=== PATIENT | male | born 1940 | race Caucasian/White ===

== ENCOUNTER → 2016-07-16 | Outpatient (CLI) | payer MEDICARE, OTHER ==
[~2016-07-16] VITALS: Ht 177.8 cm; Wt 70.4 kg
[~2016-07-16] MED LIST: ALPR0.5T8 PO; ASPI-611 PO; CYAN10009 PO; DULO30CA2 PO; FOLI1TAB15 PO; FURO40TA5 PO; METO-275 PO; MINO100C2 PO; OXYC20TA76 PO; PRAV20TA4 PO; PREG200C PO; ROPI1TAB12 PO; TAMS0.4C47 PO
--- NOTE | 2016-07-16 15:00 | DI ---
INDICATION: ITS.REASON: R06.02 SOB PROCEDURE: CHEST 2-VIEWS UPRIGHT (PA \T\ LAT) Encounter: Initial COMPARISON: Chest x-ray dated May 09, 2016 FINDINGS: Increasing opacity in the area of known left upper lobe lung nodule which appears larger than the prior study. Increased interstitial markings are noted bilaterally, similar to the prior study. No lobar consolidative pneumonia, gross pleural effusion or pneumothorax. Cardiac silhouette is moderately enlarged, worsened from the prior study. Mediastinal contours are grossly normal. Pulmonary vascularity is similar to the prior exam. Impression: 1. Increasing size of the left upper lobe pulmonary nodule. 2. Increased interstitial markings bilaterally could be due to atypical/viral pneumonia, mild pulmonary edema or hypersensitivity pneumonitis/drug reaction. .
== END ==
LOC: RC 12:37
PROVIDERS: ATTEND Internal Medicine Cardiovascular Disease
DX: J98.8 Other specified respiratory disorders (principal); R91.1 Solitary pulmonary nodule; R94.2 Abnormal results of pulmonary function studies; R91.8 Other nonspecific abnormal finding of lung field
CPT/HCPCS: 94060; 94726

== ENCOUNTER → 2016-08-07 | Outpatient (CLI) | payer MEDICARE, OTHER | LOC: NWCC 10:44 | PROVIDERS: ATTEND Internal Medicine | DX: S91.101A Unspecified open wound of right great toe without damage to nail, initial encounter (principal); W22.8XXS Striking against or struck by other objects, sequela ==

== ENCOUNTER → 2016-08-19 | Outpatient (CLI) | payer MEDICARE, OTHER ==
--- NOTE | 2016-08-19 12:51 | DI ---
Indication: ITS.REASON: SPONDYLOLISTHESIS POF LUMBAR SPINE PROCEDURE: LUMBAR SPINE W/ BENDING VIEWS: Encounter: Initial Comparison: CT lumbar spine dated December 14, 2015 Findings: Alignment lumbar spine is stable with scoliosis. There is abnormal kyphosis centered at the L2 level. Prior vertebroplasty procedures noted at L2 and L3 along with posterior decompression extending from L2 through L4. There is limited range of motion with very minimal extension and decreased flexion. Severe degenerative facet disease from L3 through S1. Moderate degenerative disk disease at L2-L3. Moderate to severe degenerative disk disease at L3-S1. Impression: No definite acute fracture. Scoliosis with degenerative disk and facet changes as above. .
== END ==
LOC: IMA 10:38
PROVIDERS: ATTEND Physician Assistant
DX: M43.16 Spondylolisthesis, lumbar region (principal); M41.9 Scoliosis, unspecified; M47.896 Other spondylosis, lumbar region; M47.897 Other spondylosis, lumbosacral region; M51.36 Other intervertebral disc degeneration, lumbar region; M51.37 Other intervertebral disc degeneration, lumbosacral region

== ENCOUNTER 2016-09-18 11:02 | Inpatient (IN) | payer MEDICARE, OTHER ==
[~2016-09-18] VITALS: Ht 177.8 cm; Wt 63.0 kg
--- OUTSIDE RECORDS SUMMARY | 2016-09-18 11:07 | XMS REPORT | Continuity of Care Document ---
Author Author [facility] Organization [facility] Address Unknown Phone Unavailable Support Name Relationship Address Phone RALPH LEAL II, MD Caregiver [address] [place] [phone] ISAAC MELTON MD Caregiver [address] [place] [phone] ARLINE MARCANO MD Caregiver [address] [place] [phone] DONYA LÓPEZ Next Of Kin [address] [facility] [place], [place] [id number] Insurance Providers Payer Name Policy Number Subscriber Name Relationship Medicare [id number] Chucho López 18 Self Medicare Supp Wps [id number] Chucho López 18 Self Problems Medical Problems Problem Onset Date Status Anemia Unknown Active Nausea Unknown Active Hypovolemia Unknown Active Chronic anemia Unknown Active Exacerbation of chronic back pain Unknown Active Hip pain Unknown Active Medications Medication Dose Route Sig Days/Qty Instructions Order Date Discontinued Date Status Pregabalin 50 Mg PO DAILY 09/11/10 07/13/13 Discontinued Folic Acid 1 Mg PO DAILY 09/11/10 Active Duloxetine Hcl 30 Mg PO DAILY 09/11/10 Active Aspirin 81 Mg PO DAILY 09/11/10 Active Zolpidem Tartrate 10 Mg PO BEDTIME 09/11/10 Active Alprazolam 0.5 Mg PO DAILY 09/11/10 Active Ibuprofen 200 Mg PO NEEDED 03/11/13 07/13/13 Discontinued Tamsulosin Hcl 0.4 Mg PO BEDTIME 03/11/13 09/13/14 Discontinued Pravastatin Sodium 20 Mg PO BEDTIME 03/11/13 Active Metoprolol Tartrate 12 Mg PO DAILY 03/11/13 Active Folic Acid 1 Mg PO DAILY 03/11/13 09/13/14 Discontinued Glucosam Hcl/Chondro Wild A/C/Mn 1 Cap PO DAILY 03/11/13 07/13/13 Discontinued [Vitamin B-12] DAILY 03/11/13 Active Multivitamins 1 Tab PO DAILY 03/11/13 09/13/14 Discontinued Hydrochlorothiazide 25 Mg PO DAILY 03/11/13 07/13/13 Discontinued [Percocet] NEEDED 03/11/13 07/13/13 Discontinued Oxycodone Hcl 15 Mg PO PRN QID 07/13/13 09/13/14 Discontinued Ropinirole Hcl 0.5 Mg PO TWICE A DAY 07/13/13 Active Methocarbamol 750 Mg PO THREE TIMES A DAY 07/13/13 Active Magnesium Oxide 400 Mg PO DAILY 07/13/13 09/13/14 Discontinued Furosemide 40 Mg PO DAILY 07/13/13 Active Bisacodyl 5 Mg PO BEDTIME 07/13/13 Active Albuterol Sulfate 8.5 Gm IH NEEDED 07/13/13 Active Oxycodone HCl/Acetaminophen 1 Tab PO q4-6 h PRN PAIN 20 Qty Take 1 tablet , by mouth, every 4-6 hours as needed for pain. 09/13/14 Active Social History Social History Problem Response Recorded Date/Time Chewing Tobacco Status No 07/20/2013 12:28pm Hx Substance Use No 09/13/2014 9:17pm Hx Alcohol Use No 09/13/2014 9:17pm Has the pt used tobacco in the last 12 months Yes 03/11/2013 10:55am Query Response Start Date Stop Date Smoking Status Current every day smoker Hospital Discharge Instructions No hospital discharge instructions. Plan of Care No plan of care. Functional Status Query Response Date Recorded Physical Hygiene Self September 13, 2014 9:17pm Disabilities Hearing Visual September 13, 2014 9:17pm Devices Used Dentures September 13, 2014 9:17pm Dressing Self September 13, 2014 9:17pm Ambulation Self September 13, 2014 9:17pm Diet Self September 13, 2014 9:17pm Mental Status Alert Oriented September 13, 2014 9:17pm Disabilities Hearing Visual September 13, 2014 9:17pm Devices Used Dentures September 13, 2014 9:17pm Physical Hygiene Self September 13, 2014 9:17pm Dressing Self September 13, 2014 9:17pm Ambulation Self September 13, 2014 9:17pm Diet Self September 13, 2014 9:17pm Allergies, Adverse Reactions, Alerts Allergen Type Severity Reaction Status Last Updated neomycin sulfate Allergy Unknown Active 09/13/14 Bacitracin Zinc Allergy Unknown Active 09/13/14 Codeine Allergy Unknown Active 09/11/10 Bacitracin Allergy Unknown Active 09/13/14 Scopolamine Allergy Severe HALLUCINATIONS Active 09/13/14 Simvastatin Allergy Unknown Active 09/13/14 Polymyxin b Allergy Unknown Active 09/13/14 Immunizations Name Given Type Hx Influenza Vaccination Y 03/2013 Historical Hx Pneumococcal Vaccination Y WITHIN THE PAST 5 YEAR Historical Hx Influenza Vaccination Y 03/2013 Historical Vital Signs Acute Vital Signs Vital Response Date/Time Temperature (Fahrenheit) 98.0 deg F (96.8 - 99.1) Temperature (Calculated Celsius) 36.62108 degrees C (36.0 - 37.3) Pulse Rate (adult) 92 bpm (60 - 100) Respiratory Rate 20 breaths/min (10 - 20) O2 Sat by Pulse Oximetry 96 % (90 - 100) Blood Pressure 165/78 mm Hg Height 5 ft 10 in Weight 191 lb Body Mass Index 27.0 kg/m^2 Results Test Source Date Result Interp. Ref. Range Comments Alanine Aminotransferase (ALT/SGPT) May 02, 2014 8:48am 27 U/L N 21 -72 Albumin May 02, 2014 8:48am 3.8 G/DL N 3.5-5.0 Albumin/Globulin Ratio May 02, 2014 8:48am 1.1 RATIO N 1.1-2.2 Alkaline Phosphatase May 02, 2014 8:48am 73 U/L N 38-126 Anion Gap May 02, 2014 8:48am 7 MEQ/L N 5-15 Aspartate Amino Transf (AST/SGOT) May 02, 2014 8:48am 24 U/L N 17- 59 BUN/Creatinine Ratio May 02, 2014 8:48am 20 RATIO N 6-26 Band Neutrophils # July 20, 2013 11:10am 0.2 T/MM3 - Band Neutrophils % July 20, 2013 11:10am 2.0 % N 0-6 Basophils # (Auto) August 05, 2013 11:05am 0.0 T/MM3 N 0-0.2 Basophils # (Manual) August 16, 2012 10:15am 0.1 T/MM3 N 0-0.2 Basophils % (Manual) August 16, 2012 10:15am 1.0 % N 0-2 Basophils (%) (Auto) August 05, 2013 11:05am 0.9 % N 0-2 Blood Urea Nitrogen May 02, 2014 8:48am 20.0 MG/DL N 9-20 Calcium Level May 02, 2014 8:48am 9.0 MG/DL N 8.4-10.2 Calculated Osmolality May 02, 2014 8:48am 279 MOSM/KG N 261-280 Carbon Dioxide Level May 02, 2014 8:48am 28 MEQ/L N 22-30 Chloride Level May 02, 2014 8:48am 109 MEQ/L H 98-107 Cholesterol Level May 02, 2014 8:48am 141 MG/DL N 132-199 Cholesterol/HDL Ratio May 02, 2014 8:48am 4.7 RATIO N 0-5.0 Creatinine May 02, 2014 8:48am 1.0 MG/DL N 0.8-1.5 D-Dimer July 20, 2013 11:10am 2410 NG/ML H 0-400 <400 NG/ML= PRESUMPTIVE NEGATIVE FOR PE OR DVT>400 NG/ML=ADDITIONAL EVALUATION FOR PE OR DVT RECOMMENDED Eosinophils # (Auto) August 05, 2013 11:05am 0.1 T/MM3 N 0-0.5 Eosinophils # (Manual) July 20, 2013 11:10am 0.2 T/MM3 N 0-0.5 Eosinophils % (Manual) July 20, 2013 11:10am 2.0 % N 0-4 Eosinophils (%) (Auto) August 05, 2013 11:05am 2.8 % N 0-4 Globulin May 02, 2014 8:48am 3.4 G/DL N 2.4-3.6 Glucose Level May 02, 2014 8:48am 85 MG/DL N 75-110 Hematocrit August 05, 2013 11:05am 26.3 % L 41-53 Hemoglobin August 05, 2013 11:05am 8.2 GM/DL L 13.5-17.5 Iron Level March 14, 2013 6:21am 71 UG/DL N 49-181 COMMENT SerumIronStudies LDL Cholesterol, Calculated May 02, 2014 8:48am 82.8 N 66-159 Lipase July 13, 2013 7:25pm 45 U/L N 23-300 Lymphocytes # (Auto) August 05, 2013 11:05am 1.7 T/MM3 N 1-4.8 Lymphocytes # (Manual) July 20, 2013 11:10am 2.0 T/MM3 N 1-4.8 Lymphocytes % (Manual) July 20, 2013 11:10am 27.0 % N 23-45 Lymphocytes (%) (Auto) August 05, 2013 11:05am 39.2 % N 23-45 Mean Corpuscular Hemoglobin August 05, 2013 11:05am 31.7 UUG N 26-34 Mean Corpuscular Hemoglobin Concent August 05, 2013 11:05am 31.2 GM/DL N 31-37 Mean Corpuscular Volume August 05, 2013 11:05am 101.5 UM3 H 80-100 Mean Platelet Volume August 05, 2013 11:05am 12.5 UM3 H 9.4-12.4 Metamyelocytes # August 16, 2012 10:15am 0.1 T/MM3 - Metamyelocytes % August 16, 2012 10:15am 1.0 % H 0-0 Monocytes # (Auto) August 05, 2013 11:05am 1.3 T/MM3 H 0-0.8 Monocytes # (Manual) July 20, 2013 11:10am 2.4 T/MM3 H 0-0.8 Monocytes % (Manual) July 20, 2013 11:10am 32.0 % H 0-9.0 Monocytes (%) (Auto) August 05, 2013 11:05am 30.0 % H 0-9.0 Neutrophils # (Auto) August 05, 2013 11:05am 1.1 T/MM3 L 1.8-7.7 Neutrophils # (Manual) July 20, 2013 11:10am 2.8 T/MM3 N 1.8-7.7 Neutrophils % (Manual) July 20, 2013 11:10am 37.0 % N 33-66 Neutrophils (%) (Auto) August 05, 2013 11:05am 26.4 % L 33-66 Percent Iron Saturation March 14, 2013 6:21am 24 % N 13-59 COMMENT SerumIronStudies Platelet Count August 05, 2013 11:05am 135 T/MM3 N 130-400 Potassium Level May 02, 2014 8:48am 4.4 MEQ/L N 3.6-5 RDW Standard Deviation August 05, 2013 11:05am 54.1 FL H 36.9-50.2 Red Blood Count August 05, 2013 11:05am 2.59 M/MM3 L 4.50-5.90 Sodium Level May 02, 2014 8:48am 144 MEQ/L N 134-144 Total Bilirubin May 02, 2014 8:48am 0.70 MG/DL N 0.20-1.30 Total Iron Binding Capacity March 14, 2013 6:21am 295 UG/DL N 261-497 COMMENT SerumIronStudies Total Protein May 02, 2014 8:48am 7.2 G/DL N 6.3-8.2 Triglycerides Level May 02, 2014 8:48am 141 MG/DL N 40-160 Troponin I July 20, 2013 11:10am < 0.012 ng/ml 0-0.12 Urine Bilirubin July 20, 2013 1:45pm Negative - Has specimen been collected/obtained? Y Urine Blood July 20, 2013 1:45pm Negative - Has specimen been collected/obtained? Y Urine Collection Type July 20, 2013 1:45pm Cleancatch-midstream - Has specimen been collected/obtained? Y Urine Color July 20, 2013 1:45pm Yellow - Has specimen been collected/obtained? Y Urine Glucose (UA) July 20, 2013 1:45pm Negative - Has specimen been collected/obtained? Y Urine Ketones July 20, 2013 1:45pm Negative - Has specimen been collected/obtained? Y Urine Leukocyte Esterase July 20, 2013 1:45pm Negative - Has specimen been collected/obtained? Y Urine Nitrite July 20, 2013 1:45pm Negative - Has specimen been collected/obtained? Y Urine Protein July 20, 2013 1:45pm Negative - Has specimen been collected/obtained? Y Urine Specific [place] July 20, 2013 1:45pm 1.010 L - Has specimen been collected/obtained? Y Urine Turbidity July 20, 2013 1:45pm Clear - Has specimen been collected/obtained? Y Urine Urobilinogen July 20, 2013 1:45pm 0.2 EU/DL - Has specimen been collected/obtained? Y Urine pH July 20, 2013 1:45pm 7.0 - Has specimen been collected/ obtained? Y VLDL Cholesterol May 02, 2014 8:48am 28.2 MG/DL H 0-28 White Blood Count August 05, 2013 11:05am 4.2 T/MM3 L 4.5-11.0 Chemistry Specimen Hemolysis May 02, 2014 8:48am < 15 0-25 0-25 : No Hemolysis.26-70: Slight Hemolysis - can falsely elevate K and Urine Protein. 71-285: Moderate Hemolysis - can falsely elevate K, Troponin I, CA 19-9, PTH, CSF GLucose, and Urine Protein, and can falsely decrease Phenytoin. 286-999: Gross Hemolysis - can falsely elevate K, Troponin I, CA 19-9, PTH, CSF Glucose, and Urine Protine, and can falsely decrease Phenytoin. Recommend specimen recollection. Urinalysis Comment July 20, 2013 1:45pm Microscopic not ind. - Has specimen been collected/obtained? Y Lab Scanned Report May 02, 2014 9:03am LAB TEST FORM REQUEST [id number] - HDL Cholesterol Direct May 02, 2014 8:48am 30 MG/DL L 40-60 Turbidity May 02, 2014 8:48am < 20 0-20 Reactive Lymphocytes % August 16, 2012 10:15am 9.0 % H 0-0 Glomerular Filtration Rate Calc May 02, 2014 8:48am 73 - Reactive Lymphocytes # August 16, 2012 10:15am 0.8 T/MM3 H 0-0 Immature Granulocyte # (Auto) August 05, 2013 11:05am 0.03 T/MM3 N 0.00- 0.03 Immature Granulocyte % (Auto) August 05, 2013 11:05am 0.7 % H 0.0-0.5 Icterus Index May 02, 2014 8:48am < 2 0-7 Name: CUHCHO LÓPEZ Unit #: [id number] : 1940 Sex: M Loc / Svc: [facility] DOS: 08/28/14 Signed Report #: [id number] DIAGNOSTIC IMAGING REPORT TYPE OF EXAM: PELVIS AP (1 or 2 view) Dictated By: COURT SALCIDO MD Indication: ITS.REASON: PAIN IN JOINT, HIP, PELVIS AND THIGH PELVIS AP (1 or 2 view) Comparison: None Findings: There is no acute fracture, dislocation or malalignment identified. Degenerative changes in the lower lumbar spine, detailed on the lumbar spine report. No significant hip joint space narrowing. Small osteophytes at the lateral aspect of the left acetabulum. Pubic symphysis appears intact. Impression: No acute osseous abnormality. . Procedures Procedure Status Date Provider(s) X-RAY EXAM L-S SPINE BENDING completed 08/28/14 X-RAY EXAM OF PELVIS completed 08/28/14 X-RAY EXAM OF HIP completed 08/28/14 Encounters Encounter Location Date/Time Departed Emergency Room [facility] 09/13/14 7:57pm Registered Clinic [facility] 08/28/14 10:21am Recent Diagnosis
--- OUTSIDE RECORDS SUMMARY | 2016-09-18 11:09 | XMS REPORT | Continuity of Care Document ---
Author Author [facility] Organization [facility] Address Unknown Phone Unavailable Allergies Active Description Code Type Severity Reaction Onset Reported/Identified Relationship to Patient Clinical Status Yes No Known Food Allergies Food Allergy 08/24/2012 Yes Codeine Drug Allergy Nausea/Vomiting 08/27/2012 Yes CODEINE 63438 1 Nausea 06/03/2013 Yes codeine NKMA N/A Nausea/Vomiting 09/30/2013 Yes codeine NKMA N/A Nausea/Vomiting 09/30/2013 Yes codeine codeine Drug Allergy Unknown U 12/26/2013 Yes codeine codeine Drug Allergy Unknown U 12/26/2013 Yes NEOSPORIN 66110 1 SKIN IRRITATION 01/24/2014 Yes ZOCOR 56349 2 HEADACHE AND NAUSEA 01/24/2014 Yes scopolamine scopolamine Drug Allergy Severe UNKNOWN 05/26/2016 Yes bacitracin bacitracin Drug Allergy Unknown RASH 05/26/2016 Yes BACITRACIN ZINC BACITRACIN ZINC Drug Allergy Unknown RASH 05/26/2016 Yes codeine codeine Drug Allergy Unknown UNKNOWN 05/26/2016 Yes neomycin neomycin Drug Allergy Unknown RASH 05/26/2016 Yes NEOMYCIN SULFATE NEOMYCIN SULFATE Drug Allergy Unknown RASH 05/26/2016 Yes polymyxin B polymyxin B Drug Allergy Unknown UNKNOWN 05/26/2016 Yes simvastatin simvastatin Drug Allergy Unknown UNKNOWN 05/26/2016 Yes scopolamine scopolamine Drug Allergy Severe UNKNOWN 05/26/2016 Yes bacitracin bacitracin Drug Allergy Unknown RASH 05/26/2016 Yes BACITRACIN ZINC BACITRACIN ZINC Drug Allergy Unknown RASH 05/26/2016 Yes codeine codeine Drug Allergy Unknown UNKNOWN 05/26/2016 Yes neomycin neomycin Drug Allergy Unknown RASH 05/26/2016 Yes NEOMYCIN SULFATE NEOMYCIN SULFATE Drug Allergy Unknown RASH 05/26/2016 Yes polymyxin B polymyxin B Drug Allergy Unknown UNKNOWN 05/26/2016 Yes simvastatin simvastatin Drug Allergy Unknown UNKNOWN 05/26/2016 Medications Medication Packaging Start Date Stop Date Route Dosage Sig DULoxetine(Cymbalta 20 mg oral delayed release capsule) 1 caps 02/15/2014 Oral 20 mg 20 mg=1 caps, Oral, Daily, 0 Refill(s) furosemide(Lasix 40 mg oral tablet) tabs 02/15/2014 Oral mg tabs, Oral, Daily rOPINIRole(Requip 0.25 mg oral tablet) 1 tabs 02/15/2014 Oral 0.25 mg 0.25 mg=1 tabs, Oral, BID, 0 Refill(s) pravastatin(pravastatin 10 mg oral tablet) 1 tabs 02/15/2014 Oral 10 mg 10 mg=1 tabs, Oral, Bedtime (once a day), 0 Refill(s) zolpidem(Ambien 5 mg oral tablet) 1 tabs 02/15/2014 Oral 5 mg 5 mg=1 tabs, Oral, Bedtime (once a day), 0 Refill(s) aspirin(aspirin 650 mg oral tablet) 1 tabs 02/15/20142014 Oral 650 mg 1 tabs, Oral, q4hr, 60 tabs, PRN: as needed for pain silodosin(Rapaflo 4 mg oral capsule) caps 02/15/20142014 Oral mg caps, Oral, Daily pregabalin(Lyrica 25 mg oral capsule) caps 02/15/2014 Oral mg caps, Oral, Daily folic acid(folic acid) 02/15/2014 Daily gabapentin(gabapentin 100 mg oral capsule) caps 02/15/2014 Oral mg caps, Oral, QID ALPRAZolam(ALPRAZolam 1 mg/mL oral concentrate) 1 mL 02/15/2014 11/05/2015 Oral 1 mg 1 mL, Oral, TID, PRN: as needed for anxiety cyclobenzaprine(cyclobenzaprine 10 mg oral tablet) 1 tabs 02/15/2014 Oral 10 mg 1 tabs, Oral, TID, 30 tabs, PRN: as needed for spasm ondansetron(Zofran) 09/25/2014 07/18/2015 See Instructions , Pt unsure of strength, PRN: as needed for nausea/vomiting oxyCODONE-acetaminophen(Percocet 7.5/325 oral tablet) 1 tabs 09/29/2014 11/05/2015 Oral 1 tabs, Oral, q6hr, 60 tabs, PRN: as needed for pain oxyCODONE(OxyCONTIN 20 mg oral tablet, extended release) 1 tabs 05/18/2015 06/19/2015 Oral 20 mg 20 mg=1 tabs, Oral, q12hr, 60 tabs, 0 Refill(s ) HYDROcodone-acetaminophen(Adrian 10 mg-325 mg oral tablet) 1 tabs 05/18/2015 06/19/2015 Oral 1 tabs, Oral, TID, PRN: Pain - Breakthrough, 80 tabs, 0 Refill(s) HYDROcodone-acetaminophen(Adrian 10 mg-325 mg oral tablet) 1 tabs 06/19/2015 07/18/2015 Oral 1 tabs, Oral, TID, PRN: Pain - Breakthrough, 80 tabs, 0 Refill(s) oxyCODONE(OxyCONTIN 20 mg oral tablet, extended release) 1 tabs 06/19/2015 Oral 20 mg 20 mg=1 tabs, Oral, q12hr, 60 tabs, 0 Refill(s) promethazine(Phenergan) 07/18/2015 11/05/2015 0 Refill(s) ceFAZolin(ceFAZolin) 10 mL 07/24/2015 07/24/2015 IV Push 1 g 1 g= 10 mL, IV Push, PREOP Lactated Ringers Injection(Lactated Ringers Injection 1, 000 mL) 1,000 mL 201507/24/2015 IV 10 mL/hr, IV fentaNYL(Sublimaze) 1 mL 07/24/2015 07/27/2015 IV Push 50 mcg 50 mcg=1 mL, IV Push, Once dexamethasone(dexamethasone) 1 mL 07/24/2015 07/24/2015 IV Push 10 mg 10 mg=1 mL, IV Push, Once famotidine(Pepcid) 2 mL 07/24/2015 07/24/2015 IV Push 20 mg 20 mg =2 mL, IV Push, Once ondansetron(Zofran) 2 mL 07/24/2015 07/24/2015 IV Push 4 mg 4 mg= 2 mL, IV Push, Once, PRN: Nausea or Vomiting HYDROmorphone(Dilaudid) 0.5 mL 07/24/2015 07/24/2015 IV Push 0.5 mg 0.5 mg=0.5 mL, IV Push, q5min, PRN: Pain * DONT RECONCILE--CHANGE PENDING EA 10/26/2015 10/30/2015 PO PRN LACTATED RINGERS 1000 ML IV SOLN BAG 10/30/2015 10/30/2015 IV PRE-OP ceFAZolin 1GM VIAL VL 10/30/2015 10/30/2015 IV PRE-OP MIDAZOLAM 2MG/2ML INJ VL 10/30/2015 10/30/2015 IV PRE-OP fentaNYL 100 MCG/2ML INJ AMP 10/30/2015 10/30/2015 IV PRE-OP SODIUM CHLORIDE PF 0.9% 10ML INJ VL 10/30/2015 10/30/2015 IVP ONCE BUPIVACAINE W/ EPI 0.25% INJ [10 ML] VL 10/30/2015 10/30/2015 ID ONCE BACITRACIN 500 UNIT/GM OINT [0.9GM U.D.] PKT 10/30/20152015 TOP ONCE SODIUM CHLORIDE PF 0.9% 10ML INJ VL 10/30/2015 10/30/2015 IVP ONCE SODIUM CHLORIDE 0.9% 1000ML IRRIG SOLN EA 10/30/20152015 IRR ONCE ceFAZolin 1GM VIAL VL 10/30/2015 10/30/2015 IVP ONCE SODIUM CHLORIDE 0.9% 10ML FLUSH SYRINGE SYR 10/30/20152016 IVP BID&0900,2100 POLYETHYLENE GLYCOL 17GM PKT PKT 10/30/2015 10/29/2016 PO QD& 0900 METHOCARBAMOL 750MG TABLET TAB 10/30/2015 10/29/2016 PO TID& 0900,1500,2200 DOCUSATE SODIUM 100MG CAPSULE CAP 10/30/2015 10/29/2016 PO BID& 0900,2100 fentaNYL 250 MCG/5ML INJ AMP 10/30/2015 10/30/2015 IV ONCE LIDOCAINE 2% SYRINGE [100MG/5ML] SYR 10/30/2015 10/30/2015 IVP ONCE DEXAMETHASONE 10MG/1ML VIAL VL 10/30/2015 10/30/2015 IVP ONCE PROPOFOL 200MG/20ML INJ VL 10/30/2015 10/30/2015 IVP ONCE ONDANSETRON 4MG/2ML INJ VL 10/30/2015 10/30/2015 IVP ONCE ROCURONIUM 50MG/5ML INJ VL 10/30/2015 10/30/2015 IVP ONCE FAMOTIDINE 20MG/2ML INJ VL 10/30/2015 10/30/2015 IV PRE-OP PHENYLEPHRINE 1MG/10ML SYRINGE [COMPOUND] DOS 10/30/201510/29 IVP ONCE EPHEDRINE 20MG/2ML SYRINGE [COMPOUND] DOS 10/30/20152015 IVP ONCE VANCOMYCIN 1GM INJ VL 10/30/2015 10/30/2015 PB ONCE DEXAMETHASONE 10MG/1ML VIAL VL 10/30/2015 10/30/2015 IVP ONCE * Ready to Reconcile EA 10/30/2015 10/30/2015 PO ASDIR EPHEDRINE 20MG/2ML SYRINGE [COMPOUND] DOS 10/30/20152015 IVP ONCE GLYCOPYRROLATE 0.2 MG/1ML INJ VL 10/30/2015 10/30/2015 IVP ONCE NEOSTIGMINE 3MG/3ML SYRINGE [COMPOUND] DOS 10/30/20152015 IVP ONCE MORPHINE 2 MG/1ML SYRINGE ML 10/30/2015 10/29/2016 IVP [id number] MORPHINE 4MG/1ML SYRINGE ML 10/30/2015 10/29/2016 IVP [id number] BISACODYL 10MG SUPPOS. SUP 10/30/2015 10/29/2016 HI* PRN LORazepam 0.5MG TABLET TAB 10/30/2015 10/29/2016 PO Q4HPRN BISACODYL 5MG TABLET TAB 10/30/2015 10/29/2016 PO PRN PHENOL 1.4% THROAT SPRAY [118ML] EA 10/30/2015 10/29/2016 PO PRN KETOROLAC 30 MG/1ML INJ DOS 10/30/2015 10/29/2016 IVP [id number] SODIUM CHLORIDE 0.9% 10ML FLUSH SYRINGE SYR 10/30/20152016 IVP PRN SODIUM CHLORIDE 0.9% 5ML FLUSH SYRINGE SYR 10/30/20152016 IVP PRN MAGNESIUM HYDROXIDE 2400MG/30ML SUSP EA 10/30/2015 10/29/2016 PO PRN SODIUM CHLORIDE 0.9% W/ KCL 20MEQ 1000ML IV SOLN BAG 10/30/2015 10/29/2016 IV 100ML/HR diphenhydrAMINE 50MG/1ML INJ VL 10/30/2015 10/29/2016 IVP Q6HPRN ACETAMINOPHEN 325MG TABLET TAB 10/30/2015 10/29/2016 PO Q4HPRN CEPACOL (BENZOCAINE/MENTHOL) LOZENGE JOANIE 10/30/2015 10/29/2016 BC Q4HPRN TEMAZEPAM 15MG CAPSULE CAP 10/30/2015 10/29/2016 PO HSPRNI& 2200 METOCLOPRAMIDE 10MG/2ML INJ VL 10/30/2015 10/29/2016 IVP [id number] FAMOTIDINE 20 MG TABLET TAB 10/30/2015 10/29/2016 PO BIDPRNN hydroMORPHONE 2MG/1ML INJ ML 10/30/2015 10/30/2015 IV POST-OP *OFLOXACIN 0.3% OPHTHALMIC SOLUITON 10/30/2015 10/29/2016 BID&0900,2100 *PREGABALIN 100 MG CAPSULE CAP 10/30/2015 10/29/2016 PO TID& 0900,1500,2200 *rOPINIRole 1 MG TABLET TAB 10/30/2015 10/29/2016 PO HSPRN& 2200 *METOPROLOL TARTRATE 25MG TABLET TAB 10/30/2015 10/29/2016 PO QD&0900 *OXYcodone CR 20MG TABLET TAB 10/30/2015 10/29/2016 PO TIDPRN *DULoxetine 30MG CAPSULE CAP 10/30/2015 10/29/2016 PO BID&0900, 2100 *TAMSULOSIN 0.4MG CAPSULE CAP 10/30/2015 10/29/2016 PO HS&2200 *PRAVASTATIN 20MG TABLET TAB 10/30/2015 10/29/2016 PO HS&2200 *CEPHALEXIN 500MG CAPSULE CAP 10/30/2015 10/29/2016 PO TID& 0900,1500,2200 *ALPRAZolam 0.5MG TABLET TAB 10/30/2015 10/29/2016 PO TID&0900, 1500,2200 METOCLOPRAMIDE 10MG TABLET TAB 10/30/2015 10/31/2015 PO Q6H& 0000,0600,1200,1800 ceFAZolin 1GM VIAL VL 10/30/2015 10/31/2015 IVP Q8H&0000,0800, 1600 MAGNESIUM SULFATE 2GM/50ML IV SOLN BAG 10/31/2015 10/31/2015 PB ONCE METOCLOPRAMIDE 10MG TABLET TAB 10/31/2015 10/30/2016 PO [id number] magnesium citrate(magnesium citrate) 11/05/2015 Oral Oral, 0 Refill(s) ibuprofen(ibuprofen 200 mg oral tablet) 1 tabs 11/05/2015 Oral 200 mg 200 mg=1 tabs, Oral, TID, 0 Refill(s) *PREGABALIN 100 MG CAPSULE CAP 11/26/2015 10/30/2015 PO TID& 0900,1500,2200 *IBUPROFEN 800MG TABLET TAB 11/26/2015 11/25/2016 PO TID&0900, 1500,2200 *rOPINIRole 1 MG TABLET TAB 11/26/2015 10/30/2015 PO HSPRN& 2200 *DULoxetine 30MG CAPSULE CAP 11/26/2015 10/30/2015 PO BID&0900, 2100 *ZOLPIDEM 5MG TABLET TAB 11/26/2015 11/25/2016 PO HSPRN&2200 *FUROSEMIDE 40MG TABLET TAB 11/26/2015 11/25/2016 PO QD&0900 *FOLIC ACID 1MG TABLET TAB 11/26/2015 11/25/2016 PO QD&0900 *ASPIRIN EC 81MG TABLET TAB 11/26/2015 11/25/2016 PO QD&0900 *ALPRAZolam 0.5MG TABLET TAB 11/26/2015 10/30/2015 PO TID&0900, 1500,2200 *OTC/HERBAL SUPPLEMENTS EA 11/26/2015 11/25/2016 PO ASDIR *OXYcodone CR 20MG TABLET TAB 11/26/2015 10/30/2015 PO TIDPRN *OXYcodone/ACETAMINOPHEN 10-325 MG TABLET TAB 11/26/20152015 PO Q6HPRN *TAMSULOSIN 0.4MG CAPSULE CAP 11/26/2015 10/30/2015 PO HS&2200 *PRAVASTATIN 20MG TABLET TAB 11/26/2015 10/30/2015 PO HS&2200 *OFLOXACIN 0.3% OPHTHALMIC SOLUITON 11/30/2015 10/30/2015 BID&0900,2100 *METOPROLOL TARTRATE 25MG TABLET TAB 11/30/2015 10/30/2015 PO QD&0900 *CEPHALEXIN 500MG CAPSULE CAP 11/30/2015 10/30/2015 PO TID& 0900,1500,2200 *OFLOXACIN 0.3% OPHTHALMIC SOLUITON 01/04/2016 01/03/2017 BID&0900,2100 *OTC/HERBAL SUPPLEMENTS EA 01/04/2016 01/03/2017 PO ASDIR *PREGABALIN 100 MG CAPSULE CAP 01/04/2016 01/03/2017 PO TID& 0900,1500,2200 *rOPINIRole 1 MG TABLET TAB 01/04/2016 01/03/2017 PO HSPRN& 2200 *METOPROLOL TARTRATE 25MG TABLET TAB 01/04/2016 01/03/2017 PO QD&0900 *OXYcodone CR 20MG TABLET TAB 01/04/2016 01/03/2017 PO TIDPRN *DULoxetine 30MG CAPSULE CAP 01/04/2016 01/03/2017 PO BID&0900, 2100 *TAMSULOSIN 0.4MG CAPSULE CAP 01/04/2016 01/03/2017 PO HS&2200 *PRAVASTATIN 20MG TABLET TAB 01/04/2016 01/03/2017 PO HS&2200 *IBUPROFEN 800MG TABLET TAB 01/04/2016 01/03/2017 PO TID&0900, 1500,2200 *FUROSEMIDE 40MG TABLET TAB 01/04/2016 01/03/2017 PO QD&0900 *FOLIC ACID 1MG TABLET TAB 01/04/2016 01/03/2017 PO QD&0900 *ASPIRIN EC 81MG TABLET TAB 01/04/2016 01/03/2017 PO QD&0900 * DONT RECONCILE--CHANGE PENDING EA 01/04/2016 01/10/2016 PO PRN LACTATED RINGERS 1000 ML IV SOLN BAG 01/10/2016 01/10/2016 IV PRE-OP VANCOMYCIN 1GM INJ VL 01/10/2016 01/10/2016 PB PRE-OP MIDAZOLAM 2MG/2ML INJ VL 01/10/2016 01/10/2016 IV PRE-OP fentaNYL 100 MCG/2ML INJ AMP 01/10/2016 01/10/2016 IV PRE-OP LIDOCAINE 2% SYRINGE [100MG/5ML] SYR 01/10/2016 01/10/2016 IVP ONCE PROPOFOL 200MG/20ML INJ VL 01/10/2016 01/10/2016 IVP ONCE ROCURONIUM 50MG/5ML INJ VL 01/10/2016 01/10/2016 IVP ONCE ONDANSETRON 4MG/2ML INJ VL 01/10/2016 01/10/2016 IVP ONCE fentaNYL 250 MCG/5ML INJ AMP 01/10/2016 01/10/2016 IV ONCE BACITRACIN 500 UNIT/GM OINT [0.9GM U.D.] PKT 01/10/20162015 TOP ONCE SODIUM CHLORIDE PF 0.9% 10ML INJ VL 01/10/2016 01/10/2016 IVP ONCE ceFAZolin 1GM VIAL VL 01/10/2016 01/10/2016 IVP ONCE SODIUM CHLORIDE 0.9% 1000ML IRRIG SOLN EA 01/10/20162015 IRR ONCE FAMOTIDINE 20MG/2ML INJ VL 01/10/2016 01/10/2016 IVP PRE-OP * Ready to Reconcile EA 01/10/2016 01/10/2016 PO ASDIR SUCCINYLCHOLINE 100MG/5ML SYRINGE [COMPOUND] DOS 01/10/2016 IVP ONCE PHENYLEPHRINE 1MG/10ML SYRINGE [COMPOUND] DOS 01/10/201601/09 IVP ONCE ePHEDrine 20MG/2ML SYRINGE (COMPOUNDED) DOS 01/10/20162015 IVP ONCE POTASSIUM CHLORIDE 10MEQ TABLET TAB 01/10/2016 01/10/2016 PO QID&0800,1200,1600,2000 hydroMORPHONE 2MG/1ML INJ ML 01/10/2016 01/10/2016 IV POST-OP SODIUM CHLORIDE 0.9% 10ML FLUSH SYRINGE SYR 01/10/20162016 IVP BID&0900,2100 MAGNESIUM OXIDE 400MG TABLET TAB 01/10/2016 01/09/2017 PO BID& 0900,2100 POLYETHYLENE GLYCOL 17GM PKT PKT 01/10/2016 01/09/2017 PO QD& 0900 METHOCARBAMOL 750MG TABLET TAB 01/10/2016 01/10/2016 PO TID& 0900,1500,2200 DOCUSATE SODIUM 100MG CAPSULE CAP 01/10/2016 01/09/2017 PO BID& 0900,2100 CYCLOBENZAPRINE 10 MG TABLET TAB 01/10/2016 01/09/2017 PO TID& 0900,1500,2200 MAGNESIUM HYDROXIDE 2400MG/30ML SUSP EA 01/10/2016 01/09/2017 PO PRN MORPHINE 2 MG/1ML SYRINGE ML 01/10/2016 01/09/2017 IVP [id number] MORPHINE 4MG/1ML SYRINGE ML 01/10/2016 01/09/2017 IVP [id number] BISACODYL 10MG SUPPOS. SUP 01/10/2016 01/09/2017 HI* PRN LORazepam 0.5MG TABLET TAB 01/10/2016 01/09/2017 PO Q4HPRN BISACODYL 5MG TABLET TAB 01/10/2016 01/09/2017 PO PRN ACETAMINOPHEN 325MG TABLET TAB 01/10/2016 01/09/2017 PO Q4HPRN PHENOL 1.4% THROAT SPRAY [118ML] EA 01/10/2016 01/09/2017 PO PRN SODIUM CHLORIDE 0.9% 10ML FLUSH SYRINGE SYR 01/10/20162016 IVP PRN SODIUM CHLORIDE 0.9% 5ML FLUSH SYRINGE SYR 01/10/20162016 IVP PRN CEPACOL (BENZOCAINE/MENTHOL) LOZENGE JOANIE 01/10/2016 01/09/2017 BC Q4HPRN SODIUM CHLORIDE 0.9% W/ KCL 20MEQ 1000ML IV SOLN BAG 01/10/2016 01/13/2016 IV 100ML/HR TEMAZEPAM 15MG CAPSULE CAP 01/10/2016 01/09/2017 PO HSPRNI& 2200 diphenhydrAMINE 50MG/1ML INJ VL 01/10/2016 01/09/2017 IVP Q6HPRN METOCLOPRAMIDE 10MG/2ML INJ VL 01/10/2016 01/09/2017 IVP [id number] FAMOTIDINE 20 MG TABLET TAB 01/10/2016 01/09/2017 PO BIDPRNN VANCOMYCIN 1GM INJ VL 01/10/2016 01/10/2016 PB Q12H&0800,2000 VANCOMYCIN 1GM INJ VL 01/10/2016 01/10/2016 PB Q12H&0900,2100 *OFLOXACIN 0.3% OPHTHALMIC SOLUITON 01/10/2016 01/09/2017 BID&0900,2100 *PREGABALIN 100 MG CAPSULE CAP 01/10/2016 01/09/2017 PO TID& 0900,1500,2200 *rOPINIRole 1 MG TABLET TAB 01/10/2016 01/09/2017 PO HSPRN& 2200 *METOPROLOL TARTRATE 25MG TABLET TAB 01/10/2016 01/09/2017 PO QD&0900 *OXYcodone CR 20MG TABLET TAB 01/10/2016 01/09/2017 PO TIDPRN *DULoxetine 30MG CAPSULE CAP 01/10/2016 01/09/2017 PO BID&0900, 2100 *TAMSULOSIN 0.4MG CAPSULE CAP 01/10/2016 01/09/2017 PO HS&2200 *PRAVASTATIN 20MG TABLET TAB 01/10/2016 01/09/2017 PO HS&2200 *ONDANSETRON 4MG TABLET TAB 01/10/2016 01/09/2017 PO Q6HPRN *FOLIC ACID 1MG TABLET TAB 01/10/2016 01/09/2017 PO QD&0900 POTASSIUM CHLORIDE 10MEQ TABLET TAB 01/10/2016 01/11/2016 PO QID&0800,1200,1600,2000 MAGNESIUM SULFATE 2GM/50ML IV SOLN BAG 01/10/2016 01/10/2016 PB 25ML/HR MAGNESIUM OXIDE 400MG TABLET TAB 01/10/2016 01/10/2016 PO ONCE MAGNESIUM SULFATE 2GM/50ML IV SOLN BAG 01/10/2016 01/10/2016 PB ONCE METOCLOPRAMIDE 10MG TABLET TAB 01/10/2016 01/11/2016 PO Q6H& 0000,0600,1200,1800 HALOPERIDOL 5MG/1ML INJ VL 01/10/2016 01/10/2016 Unknown ONCE HALOPERIDOL 5MG/1ML INJ VL 01/10/2016 01/10/2016 IVP ONCE ceFAZolin 1GM VIAL VL 01/10/2016 01/10/2016 IVP Q8H&0000,0800, 1600 VANCOMYCIN 1GM INJ VL 01/10/2016 01/09/2017 PB Q12H&0800,2000 MAGNESIUM SULFATE 2GM/50ML IV SOLN BAG 01/11/2016 01/11/2016 PB ONCE MAGNESIUM SULFATE 2GM/50ML IV SOLN BAG 01/11/2016 01/11/2016 PB ONCE METOCLOPRAMIDE 10MG TABLET TAB 01/11/2016 01/10/2017 PO [id number] MAGNESIUM SULFATE 2GM/50ML IV SOLN BAG 01/12/2016 01/12/2016 PB ONCE MAGNESIUM SULFATE 2GM/50ML IV SOLN BAG 01/12/2016 01/13/2016 PB ONCE MAGNESIUM SULFATE 2GM/50ML IV SOLN BAG 01/12/2016 01/12/2016 PB ONCE HEPARIN FLUSH 100 UNITS/ML 5 ML SYRINGE SYR 01/13/20162015 IV BID&0900,2100 SODIUM CHLORIDE PF 0.9% 10ML INJ VL 01/13/2016 01/12/2017 IVP BID&0900,2100 HEPARIN FLUSH 100 UNITS/ML 5 ML SYRINGE SYR 01/13/20162015 IV PRN SODIUM CHLORIDE PF 0.9% 10ML INJ VL 01/13/2016 01/12/2017 IVP PRN HEPARIN FLUSH 100 UNITS/ML 5 ML SYRINGE SYR 01/13/20162015 IV ONCE HEPARIN FLUSH 100 UNITS/ML 5 ML SYRINGE SYR 01/13/20162015 IV ONCE HEPARIN FLUSH 100 UNITS/ML 5 ML SYRINGE SYR 01/14/20162016 IV PRN HALOPERIDOL 5MG/1ML INJ VL 01/15/2016 01/15/2016 Unknown ONCE HALOPERIDOL 5MG/1ML INJ VL 01/15/2016 01/14/2017 IV Q4HPRN PROMETHAZINE 25 MG/1ML INJ VL 01/15/2016 01/14/2017 IVP Q4- 6HPRNNV LORazepam 2 MG/1ML VIAL VL 01/15/2016 01/14/2017 IVP Q4HPRN *OFLOXACIN 0.3% OPHTHALMIC SOLUITON 02/04/2016 01/10/2016 BID&0900,2100 *OTC/HERBAL SUPPLEMENTS EA 02/04/2016 02/03/2017 PO ASDIR *PREGABALIN 100 MG CAPSULE CAP 02/04/2016 01/10/2016 PO TID& 0900,1500,2200 *rOPINIRole 1 MG TABLET TAB 02/04/2016 01/10/2016 PO HSPRN& 2200 *METOPROLOL TARTRATE 25MG TABLET TAB 02/04/2016 01/10/2016 PO QD&0900 *OXYcodone CR 20MG TABLET TAB 02/04/2016 01/10/2016 PO TIDPRN *DULoxetine 30MG CAPSULE CAP 02/04/2016 01/10/2016 PO BID&0900, 2100 *TAMSULOSIN 0.4MG CAPSULE CAP 02/04/2016 01/10/2016 PO HS&2200 *PRAVASTATIN 20MG TABLET TAB 02/04/2016 01/10/2016 PO HS&2200 *IBUPROFEN 800MG TABLET TAB 02/04/2016 02/03/2017 PO TID&0900, 1500,2200 *FUROSEMIDE 40MG TABLET TAB 02/04/2016 01/10/2016 PO QD&0900 *FOLIC ACID 1MG TABLET TAB 02/04/2016 01/10/2016 PO QD&0900 *ASPIRIN EC 81MG TABLET TAB 02/04/2016 02/03/2017 PO QD&0900 *FUROSEMIDE 20MG TABLET TAB 02/10/2016 02/09/2017 PO QD&0900 *rOPINIRole 1 MG TABLET TAB 02/10/2016 01/10/2016 PO HSPRN& 2200 *ONDANSETRON 4MG TABLET TAB 02/10/2016 01/10/2016 PO Q6HPRN Problems Date Dx Coded Attending Type Code Diagnosis Diagnosed By 08/26/2012 Nikolay Kimble MD Final 285.1 ACUTE POSTHEMOR ANEMIA 08/26/2012 Nikolay Kimble MD Final 287.5 THROMBOCYTOPENIA NOS 08/26/2012 Nikolay Kimble MD Final 300.00 ANXIETY STATE NOS 08/26/2012 Nikolay Kimble MD Final 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 08/26/2012 Nikolay Kimble MD Final 443.9 PERIPH VASCULAR DIS NOS 08/26/2012 Nikolay Kimble MD Final 458.29 IATROGEN HYPOTENSION NEC 08/26/2012 Nikolay Kimble MD Final 492.8 EMPHYSEMA NEC 08/26/2012 Nikolay Kimble MD Final 737.30 IDIOPATHIC SCOLIOSIS 08/26/2012 Nikolay Kimble MD Final 738.4 ACQ SPONDYLOLISTHESIS 08/26/2012 Nikolay Kimble MD Final 788.20 RETENTION OF URINE NOS 08/01/2015 Damián Irizarry MD Final E66.3 Overweight 08/01/2015 Damián Irizarry MD Final E78.0 Pure hypercholesterolemia 08/01/2015 Damián Irizarry MD Final F17.210 Nicotine dependence, cigarettes, uncomplicated 08/01/2015 Damián Irizarry MD Final G89.4 Chronic pain syndrome 08/01/2015 Damián Irizarry MD Reason S32.020A Wedge compression fracture of second lumbar vertebra, initial encounter for 08/01/2015 Damián Irizarry MD Final S32.030A Wedge compression fracture of third lumbar vertebra, initial encounter for 08/01/2015 Damián Irizarry MD Final Z68.25 Body mass index (BMI) 25.0-25.9, adult 08/01/2015 Damián Irizarry MD Final 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 10/31/2015 FANG DUNN DF 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.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 10/31/2015 FANG DUNN DF D64.9 Anemia, unspecified 10/31/2015 FANG DUNN DF D69.6 Thrombocytopenia, unspecified 10/31/2015 FANG DUNN E03.9 Hypothyroidism, unspecified 10/31/2015 FANG DUNN E78.5 Hyperlipidemia, unspecified 10/31/2015 FANG DUNN E83.42 Hypomagnesemia 10/31/2015 FANG DUNN F32.9 Major depressive disorder, single episod 10/31/2015 FANG DUNN F41.8 Other specified anxiety disorders 10/31/2015 FANG DUNN G25.81 Restless legs syndrome 10/31/2015 FANG DUNN G62.9 Polyneuropathy, unspecified 10/31/2015 FANG DUNN DF I10 Essential (primary) hypertension 10/31/2015 FANG DUNN I25.10 Atherosclerotic heart disease of [place] 10/31/2015 FANG DUNN I73.9 Peripheral vascular disease, unspecified 10/31/2015 FANG DUNN I95.81 Postprocedural hypotension 10/31/2015 FANG DUNN J44.9 Chronic obstructive pulmonary disease, u 10/31/2015 FANG DUNN M81.0 Age-related osteoporosis without current 10/31/2015 FANG DUNN M86.9 Osteomyelitis, unspecified 10/31/2015 FANG DUNN N40.0 Enlarged prostate without lower urinary 10/31/2015 FANG DUNN T81.30XA Disruption of wound, unspecified, initia 10/31/2015 FANG DUNN T81.4XXA Infection following a procedure, initial 10/31/2015 FANG DUNN Z72.0 Tobacco use 10/31/2015 FANG DUNN Z79.01 senior care (current) use of anticoagulant 10/31/2015 FANG DUNN Z85.51 Personal history of malignant neoplasm o 01/15/2016 FANG DUNN A49.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 01/15/2016 FANG DUNN D46.9 Myelodysplastic syndrome, unspecified 01/15/2016 FANG DUNN D62 Acute posthemorrhagic anemia 01/15/2016 FANG DUNN E03.9 Hypothyroidism, unspecified 01/15/2016 FANG DUNN E78.5 Hyperlipidemia, unspecified 01/15/2016 FANG DUNN E83.42 Hypomagnesemia 01/15/2016 FANG DUNN F41.8 Other specified anxiety disorders 01/15/2016 FANG DUNN G25.81 Restless legs syndrome 01/15/2016 FANG DUNN G62.9 Polyneuropathy, unspecified 01/15/2016 FANG DUNN I10 Essential (primary) hypertension 01/15/2016 FANG DUNN I25.10 Atherosclerotic heart disease of [place] 01/15/2016 FANG DUNN J43.9 Emphysema, unspecified 01/15/2016 FANG DUNN N28.9 Disorder of kidney and ureter, unspecifi 01/15/2016 FANG DUNN N40.0 Benign prostatic hyperplasia without low 01/15/2016 FANG DUNN R33.9 Retention of urine, unspecified 01/15/2016 FANG DUNN R40.0 Somnolence 01/15/2016 FANG DUNN T81.32XA Disruption of internal operation (surgic 01/15/2016 FANG DUNN T81.4XXA Infection following a procedure, initial 01/15/2016 FANG DUNN Z72.0 Tobacco use 01/15/2016 FANG DUNN Z85.51 Personal history of malignant neoplasm o Procedures Code Description Performed By Performed On 77.79 EXC BONE FOR GRAFT NEC Nikolay Kimble MD 08/26/2012 81.07 LAT TRANS LUMBAR FUSION Nikolay Kimble MD 08/26/2012 81.63 REPLACE ACETAB-METHACRYL Nikolay Kimble MD 08/26/2012 84.52 INSERT RECOMBINANT BONE Nikolay Kimble MD 08/26/2012 37.22 LEFT HEART CARDIAC CATH Toney Nance MD 12/26/2013 88.53 LT HEART ANGIOCARDIOGRAM Toney Nance MD 12/26/2013 88.56 CORONAR ARTERIOGR-2 CATH Toney Nance MD 12/26/2013 Biopsy, bone, trocar, or needle; deep (eg, vertebral body, femur) 07/24/2015 [id number] Excision of Lumbar Vertebra, Open Akil DUNN FANG 10/30/2015 [id number] Insertion of Infusion Device into Kelsy DUNN FANG 01/10/2016 [id number] Excision of Lumbar Vertebra, [facility] 01/10/2016 Results Test Result Range CBC - 12/26/13 11:45 MEAN CELL HGB 31.2 pg 27.0-33.0 MEAN CELL HGB CONCENTRATION 31.6 g/dL 32.0-37.0 MEAN CELL VOLUME 98.7 fl 80.0-100.0 RED BLOOD CELL 3.97 m/cumm 4.00-6.00 RED CELL DISTRIBUTION WIDTH 17.7 % 11.0- 15.6 WHITE BLOOD CELL 3.9 k/cumm 5.0-10.0 HEMOGLOBIN 12.4 gm/dL 14.0-18.0 HEMATOCRIT 39.2 % 40.0-54.0 PLATELET COUNT 66 k/cumm 150-400 METABOLIC PANEL, COMPREHN - 12/26/13 11:45 POTASSIUM 4.2 mmol/L 3.5-5.3 EST GFR (MDRD) > 60 mL/min > 59 ANION GAP 6 mmol/L 5-15 GLUCOSE 79 mg/dL 70-99 CALCIUM 8.6 mg/dL 8.5-10.1 BLOOD UREA NITROGEN 17 mg/dL 7-20 CREATININE 1.0 mg/dL 0.8-1.3 SODIUM 141 mmol/L 135-148 CHLORIDE 109 mmol/L 98-110 AST/SGOT 20 Units/L 10-37 ALT/SGPT 22 Units/L < 66 CARBON DIOXIDE 26 mmol/L 21-32 TOTAL PROTEIN 7.1 gm/dL 6.4-8.2 ALBUMIN 3.3 gm/dL 3.4-5.0 BILI TOTAL 0.7 mg/dL 0.0-1.0 ALKALINE PHOSPHATASE TOTAL 82 IU/L 45- 117 72722-4 - 01/10/16 06:00 Leukocytes [#/volume] in Blood 8.6 x10 4.6 - 10.2 Erythrocytes [#/volume] in Blood 2.83 x10 4.69 - 6.13 Hemoglobin [Mass/volume] in Blood 8.1 g/dl 13.5 - 17.0 Hematocrit [Volume Fraction] of Blood by Automated count 25.1 % 40.0 - 51.0 Erythrocyte mean corpuscular volume [Entitic volume] by Automated count 88.7 FL 80.0 - 97.0 Erythrocyte mean corpuscular hemoglobin [Entitic mass] by Automated count 28.6 pg 26.0-34.0 Erythrocyte mean corpuscular hemoglobin concentration [Mass/volume] by Automated count 32.3 g/dl 31.0 - 36.0 Erythrocyte distribution width [Ratio] by Automated count 16.8 % 11.0 - 15.0 Platelets [#/volume] in Blood 49 x10 142 - 424 Neutrophils.segmented/100 leukocytes in Blood 22 35 - 71 Neutrophils.band form/100 leukocytes in Blood 3 0-5 Lymphocytes/100 leukocytes in Blood 36 20-53 Monocytes/100 leukocytes in Blood 35 0- 10 Eosinophils/100 leukocytes in Blood 1 0- 3 Metamyelocytes/100 leukocytes in Blood 3 Basophils/100 leukocytes in Blood 0 0-1 2345-7 - 01/10/16 06:00 Glucose [Mass/volume] in Serum or Plasma 90 mg/dl 64 - 112 Urea nitrogen [Mass/volume] in Serum or Plasma 17.5 mg/dl 8.4 - 25.8 Creatinine [Mass/volume] in Serum or Plasma 1.3 mg/dl 0.7 - 1.2 Calcium [Mass/volume] in Serum or Plasma 6.40 mg/dl 8.30 - 10.60 Sodium [Moles/volume] in Serum or Plasma 141 mmol/L 135 - 151 Potassium [Moles/volume] in Serum or Plasma 3.0 mmol/L 3.5 - 5.0 Chloride [Moles/volume] in Serum or Plasma 101 mmol/L 98 - 113 Carbon dioxide, total [Moles/volume] in Venous blood 27 mmol /L 23 - 34 Magnesium [Mass/volume] in Serum or Plasma - 01/10/16 06:00 Magnesium [Mass/volume] in Serum or Plasma 0.8 mg/dl 1.8 - 2.6 33635-2 - 01/10/16 08:05 Microscopic observation [Identifier] in Wound by Gram stain Lumbar Wound Magnesium [Mass/volume] in Serum or Plasma - 01/11/16 04:30 Magnesium [Mass/volume] in Serum or Plasma 1.3 mg/dl 1.8 - 2.6 Comprehensive metabolic 2000 panel - Serum or Plasma - 01/11/16 04:30 Glucose [Mass/volume] in Serum or Plasma 81 mg/dl 64 - 112 Urea nitrogen [Mass/volume] in Serum or Plasma 11.3 mg/dl 8.4 - 25.8 Creatinine [Mass/volume] in Serum or Plasma 0.9 mg/dl 0.7 - 1.2 Urea/Creatinine [Mass Ratio] in Serum or Plasma 12.6 6 - 26 Calcium [Mass/volume] in Serum or Plasma 6.10 mg/dl 8.30 - 10.60 Sodium [Moles/volume] in Serum or Plasma 141 mmol/L 135 - 151 Potassium [Moles/volume] in Serum or Plasma 3.9 mmol/L 3.5 - 5.0 Chloride [Moles/volume] in Serum or Plasma 109 mmol/L 98 - 113 Protein [Mass/volume] in Serum or Plasma 5.9 gm/dl 6.2 - 8.0 Albumin [Mass/volume] in Serum or Plasma 2.9 gm/dl 3.5 - 5.2 Globulin [Mass/volume] in Serum 3.0 gm/dl 2-4 Albumin/Globulin [Mass Ratio] in Serum or Plasma 1.0 1.1-2.4 Alanine aminotransferase [Enzymatic activity/volume] in Serum or Plasma 8 U/L 0 - 55 Alkaline phosphatase [Enzymatic activity/volume] in Serum or Plasma 64 U/L 53 - 128 Bilirubin.total [Mass/volume] in Serum or Plasma 0.50 mg/dl 0.10 - 1.20 Carbon dioxide, total [Moles/volume] in Venous blood 26 mmol /L 23 - 34 60206-2 - 01/11/16 04:30 Leukocytes [#/volume] in Blood 6.5 x10 4.6 - 10.2 Erythrocytes [#/volume] in Blood 2.45 x10 4.69 - 6.13 Hemoglobin [Mass/volume] in Blood 7.1 g/dl 13.5 - 17.0 Hematocrit [Volume Fraction] of Blood by Automated count 22.2 % 40.0 - 51.0 Erythrocyte mean corpuscular volume [Entitic volume] by Automated count 90.6 FL 80.0 - 97.0 Erythrocyte mean corpuscular hemoglobin [Entitic mass] by Automated count 29.0 pg 26.0-34.0 Erythrocyte mean corpuscular hemoglobin concentration [Mass/volume] by Automated count 32.0 g/dl 31.0 - 36.0 Erythrocyte distribution width [Ratio] by Automated count 16.2 % 11.0 - 15.0 2345-7 - 01/12/16 04:30 Glucose [Mass/volume] in Serum or Plasma 82 mg/dl 64 - 112 Urea nitrogen [Mass/volume] in Serum or Plasma 7.9 mg/dl 8.4 - 25.8 Creatinine [Mass/volume] in Serum or Plasma 0.8 mg/dl 0.7 - 1.2 Calcium [Mass/volume] in Serum or Plasma 6.20 mg/dl 8.30 - 10.60 Sodium [Moles/volume] in Serum or Plasma 142 mmol/L 135 - 151 Potassium [Moles/volume] in Serum or Plasma 4.6 mmol/L 3.5 - 5.0 Chloride [Moles/volume] in Serum or Plasma 111 mmol/L 98 - 113 Carbon dioxide, total [Moles/volume] in Venous blood 25 mmol /L 23 - 34 Magnesium [Mass/volume] in Serum or Plasma - 01/12/16 04:30 Magnesium [Mass/volume] in Serum or Plasma 1.3 mg/dl 1.8 - 2.6 Hemoglobin [Mass/volume] in Blood - 01/12/16 04:30 Hemoglobin [Mass/volume] in Blood 7.1 g/dl 13.5 - 17.0 Hematocrit [Volume Fraction] of Blood by Automated count - 01/12/16 04:30 Hematocrit [Volume Fraction] of Blood by Automated count 22.1 % 40.0 - 51.0 Erythrocyte sedimentation rate by [place] method - 01/12/16 04:30 Erythrocyte sedimentation rate by [place] method 75 mm/hr 0 - 10 Magnesium [Mass/volume] in Serum or Plasma - 01/13/16 06:15 Magnesium [Mass/volume] in Serum or Plasma 1.8 mg/dl 1.8 - 2.6 68239-2 - 01/13/16 06:15 Leukocytes [#/volume] in Blood 8.0 x10 4.6 - 10.2 Erythrocytes [#/volume] in Blood 2.56 x10 4.69 - 6.13 Hemoglobin [Mass/volume] in Blood 7.3 g/dl 13.5 - 17.0 Hematocrit [Volume Fraction] of Blood by Automated count 23.5 % 40.0 - 51.0 Erythrocyte mean corpuscular volume [Entitic volume] by Automated count 91.8 FL 80.0 - 97.0 Erythrocyte mean corpuscular hemoglobin [Entitic mass] by Automated count 28.5 pg 26.0-34.0 Erythrocyte mean corpuscular hemoglobin concentration [Mass/volume] by Automated count 31.1 g/dl 31.0 - 36.0 Erythrocyte distribution width [Ratio] by Automated count 16.0 % 11.0 - 15.0 LACTIC ACID - 05/26/16 18:07 LACTIC ACID 1.2 mmol/L 0.5-2.0 VENOUS BLOOD GAS - 05/26/16 18:07 VBG BASE EXCESS -6.4 mEq/L -3.0-3.0 VBG BICARBONATE 21.3 meq/L 21-30 VBG PCO2 55 mm Hg 41-51 VBG PH 7.21 7.33-7.43 VBG PO2 20 mm Hg 35-40 VBG O2 SATURATION 23 % 65-75 IRON W/ BINDING CAPACITY - 05/26/16 18:07 IRON SATURATION 78 % SAT 11-46 IRON BINDING CAPACITY, TOTAL 129 mcg/dL 250-450 IRON 101 mcg/dL 35-150 FERRITIN - 05/26/16 18:07 FERRITIN 1198 ng/mL 26-388 BLOOD CULTURE - 05/26/16 18:08 Microbiology GLUCOSE (POC) - 05/26/16 18:16 GLUCOSE (POC) 149 mg/dL 70-99 BLOOD CULTURE - 05/26/16 18:17 Microbiology GLUCOSE (POC) - 05/26/16 21:34 GLUCOSE (POC) 118 mg/dL 70-99 LACTIC ACID - 05/26/16 22:30 LACTIC ACID 1.2 mmol/L 0.5-2.0 POTASSIUM - 05/26/16 22:30 POTASSIUM 4.2 mmol/L 3.5-5.3 VENOUS BLOOD GAS - 05/27/16 04:20 VBG BASE EXCESS -7.2 mEq/L -3.0-3.0 VBG BICARBONATE 17.5 meq/L 21-30 VBG PCO2 32 mm Hg 41-51 VBG PH 7.36 7.33-7.43 VBG PO2 140 mm Hg 35-40 VBG O2 SATURATION 99 % 65-75 LACTIC ACID - 05/27/16 04:20 LACTIC ACID 0.9 mmol/L 0.5-2.0 B-TYPE NATRIURETIC PEPTIDE - 05/27/16 04:20 B-TYPE NATRIURETIC PEPTIDE 1010 pg/mL < 100 CBC W/DIFF - 05/27/16 04:20 GRANULOCYTE # 13.0 k/cumm 2.0-9.0 LYMPHOCYTE # 1.4 k/cumm 1.0-4.0 LYMPHOCYTE % 6 % 20-30 MEAN CELL HGB 30.7 pg 27.0-33.0 MEAN CELL HGB CONCENTRATION 31.8 g/dL 32.0-37.0 MEAN CELL VOLUME 96.7 fl 80.0-100.0 MONOCYTE # 5.2 k/cumm 0.1-1.0 MONOCYTE % 22 % 4-6 RED BLOOD CELL 2.41 m/cumm 4.00-6.00 RED CELL DISTRIBUTION WIDTH 15.7 % 11.0- 15.6 WHITE BLOOD CELL 23.6 k/cumm 5.0-10.0 HEMOGLOBIN 7.4 gm/dL 14.0-18.0 HEMATOCRIT 23.3 % 40.0-54.0 PLATELET COUNT 36 k/cumm 150-450 MANUAL DIFF(R) - 05/27/16 04:20 BAND % 14 % 0-10 DIFFERENTIAL MANUAL METAMYELOCYTE % 17 % RBC MORPH NOTED SEGMENTED NEUTROPHIL % 41 % 50-70 METABOLIC PANEL, COMPREHN - 05/27/16 04:20 POTASSIUM 4.2 mmol/L 3.5-5.3 EST GFR (MDRD) 35 mL/min > 59 ANION GAP 8 mmol/L 5-15 EST CrCl (CG) 32 mL/min > 59 GLUCOSE 111 mg/dL 70-99 CALCIUM 7.2 mg/dL 8.5-10.1 BLOOD UREA NITROGEN 29 mg/dL 7-20 CREATININE 1.9 mg/dL 0.7-1.3 SODIUM 139 mmol/L 135-148 CHLORIDE 109 mmol/L 98-110 AST/SGOT 11 Units/L 10-37 ALT/SGPT 12 Units/L < 66 CARBON DIOXIDE 22 mmol/L 21-32 TOTAL PROTEIN 6.3 gm/dL 6.4-8.2 ALBUMIN 1.9 gm/dL 3.4-5.0 BILI TOTAL 0.4 mg/dL 0.0-1.0 ALKALINE PHOSPHATASE TOTAL 53 IU/L 45- 117 PHOSPHORUS - 05/27/16 04:20 PHOSPHORUS 4.3 mg/dL 2.5-4.9 MAGNESIUM - 05/27/16 04:20 MAGNESIUM 0.9 mg/dL 1.8-2.4 TROPONIN I - 05/27/16 04:20 TROPONIN I 0.05 ng/mL < 0.07 GLUCOSE (POC) - 05/27/16 05:57 GLUCOSE (POC) 108 mg/dL 70-99 UR SODIUM - 05/27/16 08:11 UR SODIUM COMMENT RANDOM UR SODIUM LEVEL 139 mmol/L 20-40 UR CREATININE - 05/27/16 08:11 UR CREATININE COMMENT RANDOM UR CREATININE LEVEL 59.7 mg/dL 44-467 GLUCOSE (POC) - 05/27/16 11:53 GLUCOSE (POC) 82 mg/dL 70-99 D-DIMER QUANT - 05/27/16 16:32 D-DIMER QUANT 915 ng/mL 0-229 GLUCOSE (POC) - 05/27/16 17:38 GLUCOSE (POC) 111 mg/dL 70-99 GLUCOSE (POC) - 05/27/16 20:44 GLUCOSE (POC) 134 mg/dL 70-99 METABOLIC PANEL, BASIC - 05/28/16 04:46 POTASSIUM 3.5 mmol/L 3.5-5.3 EST GFR (MDRD) 40 mL/min > 59 ANION GAP 8 mmol/L 5-15 EST CrCl (CG) 35 mL/min > 59 GLUCOSE 81 mg/dL 70-99 CALCIUM 7.1 mg/dL 8.5-10.1 BLOOD UREA NITROGEN 25 mg/dL 7-20 CREATININE 1.7 mg/dL 0.7-1.3 SODIUM 142 mmol/L 135-148 CHLORIDE 111 mmol/L 98-110 CARBON DIOXIDE 23 mmol/L 21-32 PHOSPHORUS - 05/28/16 04:46 PHOSPHORUS 3.4 mg/dL 2.5-4.9 MAGNESIUM - 05/28/16 04:46 MAGNESIUM 1.3 mg/dL 1.8-2.4 CBC - 05/28/16 04:46 MEAN CELL HGB 30.6 pg 27.0-33.0 MEAN CELL HGB CONCENTRATION 32.1 g/dL 32.0-37.0 MEAN CELL VOLUME 95.2 fl 80.0-100.0 RED BLOOD CELL 2.29 m/cumm 4.00-6.00 RED CELL DISTRIBUTION WIDTH 16.1 % 11.0- 15.6 WHITE BLOOD CELL 11.7 k/cumm 5.0-10.0 HEMOGLOBIN 7.0 gm/dL 14.0-18.0 HEMATOCRIT 21.8 % 40.0-54.0 PLATELET COUNT 39 k/cumm 150-450 GLUCOSE (POC) - 05/28/16 05:33 GLUCOSE (POC) 90 mg/dL 70-99 GLUCOSE (POC) - 05/28/16 17:25 GLUCOSE (POC) 110 mg/dL 70-99 GLUCOSE (POC) - 05/28/16 20:56 GLUCOSE (POC) 106 mg/dL 70-99 GLUCOSE (POC) - 05/29/16 07:25 GLUCOSE (POC) 76 mg/dL 70-99 GLUCOSE (POC) - 05/29/16 09:56 GLUCOSE (POC) 97 mg/dL 70-99 Encounters ACCT No. Visit Date/Time Discharge Status Pt. Type Provider Facility Loc./Unit Complaint [id number] 08/26/2012 05:00:00 2012 11:02:00 DIS Inpatient Lamin MEJIA, [facility] on [address]
--- NOTE | 2016-09-18 11:50 | NUR ---
SECOND FACING BASTER IN ROOM TO DRAW LAB.
--- NOTE | 2016-09-18 12:01 | NUR ---
PROVIDER Deonna MORFIN EMPLOYEE RELATIONS MANAGER IN TO SEE PATIENT.
[2016-09-18] MEDS ORDERED: ALEN70TA48 PO (12:03)
[2016-09-18] MEDS ORDERED: ALBU2.5V7 AEROSOL (12:03)
[2016-09-18] MEDS ORDERED: DULO60CA56 PO (12:05)
[2016-09-18] MEDS ORDERED: HYDR25TA85 PO (12:05)
[2016-09-18] MEDS ORDERED: MAGN500C4 PO (12:05)
[2016-09-18] MEDS ORDERED: METO25TA6 PO (12:07)
[2016-09-18] MEDS ORDERED: MEXI150C2 PO (12:07)
[2016-09-18] MEDS ORDERED: TIOT18CA3 ORAL INH (12:08)
[2016-09-18] MEDS ORDERED: CYAN1TAB46 PO (12:10)
[2016-09-18 12:12] LABS: HCT - HEMATOCRIT 36.8 % (41-53); HGB - HEMOGLOBIN 10.7 GM/DL (13.5-17.5); MEAN CORPUSCULAR HGB 27.9 UUG (26-34); MEAN CORPUSCULAR HGB CONC(MCHC 29.1 GM/DL (31-37); MEAN CORPUSCULAR VOLUME 96.1 UM3 (80-100); RED BLOOD COUNT 3.83 M/MM3 (4.50-5.90); WBC - WHITE BLOOD COUNT 14.6 T/MM3 (4.5-11.0)
--- OUTSIDE RECORDS SUMMARY | 2016-09-18 12:12 | XMS REPORT | Continuity of Care Document ---
Author Author [facility] Organization [facility] Address Unknown Phone Unavailable Support Name Relationship Address Phone RALPH LEAL II, MD Caregiver [address] [place] [phone] ISAAC MELTON MD Caregiver [address] [place] [phone] ARLINE MARCANO MD Caregiver [address] [place] [phone] DONYA LÓPEZ Next Of Kin [address] [place], [place] [id number] Insurance Providers Payer Name Policy Number Subscriber Name Relationship Medicare [id number] Chucho López 18 Self Medicare Supp Wps [id number] Chucho López 20 Self Problems Medical Problems [...] F (96.8 - 99.1) Temperature (Calculated Celsius) 36.62454 degrees C (36.0 - 37.3) Pulse Rate [...] Has specimen been collected/obtained? Y Urine Specific Triangle July 20, 2013 1:45pm 1.010 L - [...] 02, 2014 9:03am LAB TEST FORM REQUEST [id number] - HDL Cholesterol Direct May 02, 2014 [...] 02, 2014 8:48am < 2 0-7 Name: CHUCHO LÓPEZ Unit #: [id number] : 1940 Sex: M Loc / Svc: [facility] DOS: 08/28/14 Signed Report #: [id number] DIAGNOSTIC IMAGING REPORT TYPE OF EXAM: PELVIS [...] Encounters Encounter Location Date/Time Departed Emergency Room [facility] 09/13/14 7:57pm Registered Clinic [facility] 08/28/14 10:21am Recent Diagnosis
--- OUTSIDE RECORDS SUMMARY | 2016-09-18 12:14 | XMS REPORT | Continuity of Care Document ---
Author Author [facility] Organization [facility] Address Unknown Phone Unavailable Allergies Active Description Code Type Severity Reaction Onset Reported/Identified Relationship to Patient Clinical Status Yes No Known Food Allergies Food Allergy 08/24/2012 Yes Codeine Drug Allergy Nausea/Vomiting 08/27/2012 Yes CODEINE 58837 1 Nausea 06/03/2013 Yes codeine NKMA N/A Nausea/Vomiting 09/30/2013 Yes codeine NKMA N/A Nausea/Vomiting 09/30/2013 Yes codeine codeine Drug Allergy Unknown U 12/26/2013 Yes codeine codeine Drug Allergy Unknown U 12/26/2013 Yes NEOSPORIN 75586 1 SKIN IRRITATION 01/24/2014 Yes ZOCOR 43838 2 HEADACHE AND NAUSEA 01/24/2014 Yes scopolamine [...] Oral, q12hr, 60 tabs, 0 Refill(s ) HYDROcodone-acetaminophen([place] 10 mg-325 mg oral tablet) 1 tabs 05/18/2015 06/19/2015 Oral 1 tabs, Oral, TID, PRN: Pain - Breakthrough, 80 tabs, 0 Refill(s) HYDROcodone-acetaminophen([place] 10 mg-325 mg oral tablet) 1 tabs [...] 2 MG/1ML SYRINGE ML 10/30/2015 10/29/2016 IVP [id number] MORPHINE 4MG/1ML SYRINGE ML 10/30/2015 10/29/2016 IVP [id number] BISACODYL 10MG SUPPOS. SUP 10/30/2015 10/29/2016 MO* PRN LORazepam 0.5MG TABLET TAB 10/30/2015 10/29/2016 PO Q4HPRN BISACODYL 5MG TABLET TAB 10/30/2015 10/29/2016 PO PRN PHENOL 1.4% THROAT SPRAY [118ML] EA 10/30/2015 10/29/2016 PO PRN KETOROLAC 30 MG/1ML INJ DOS 10/30/2015 10/29/2016 IVP G6SOWEG SODIUM CHLORIDE 0.9% 10ML FLUSH SYRINGE SYR [...] METOCLOPRAMIDE 10MG/2ML INJ VL 10/30/2015 10/29/2016 IVP [id number] FAMOTIDINE 20 MG TABLET TAB 10/30/2015 10/29/2016 [...] METOCLOPRAMIDE 10MG TABLET TAB 10/31/2015 10/30/2016 PO C4TOTEMI magnesium citrate(magnesium citrate) 11/05/2015 Oral Oral, 0 [...] 2 MG/1ML SYRINGE ML 01/10/2016 01/09/2017 IVP P1YNHAP MORPHINE 4MG/1ML SYRINGE ML 01/10/2016 01/09/2017 IVP O3ZUEOS BISACODYL 10MG SUPPOS. SUP 01/10/2016 01/09/2017 MO* PRN LORazepam 0.5MG TABLET TAB 01/10/2016 01/09/2017 [...] METOCLOPRAMIDE 10MG/2ML INJ VL 01/10/2016 01/09/2017 IVP [id number] FAMOTIDINE 20 MG TABLET TAB 01/10/2016 01/09/2017 [...] METOCLOPRAMIDE 10MG TABLET TAB 01/11/2016 01/10/2017 PO O5GXYASG MAGNESIUM SULFATE 2GM/50ML IV SOLN BAG 01/12/2016 [...] 08/01/2015 Damián Irizarry MD Final Z79.899 Other life insurance specialist (current) drug therapy 10/31/2015 FANG DUNN DF [...] FANG DUNN I25.10 Atherosclerotic heart disease of [place] 10/31/2015 FANG DUNN I73.9 Peripheral vascular disease, [...] Z72.0 Tobacco use 10/31/2015 FANG DUNN Z79.01 skilled nursing (current) use of anticoagulant 10/31/2015 FANG DUNN [...] FANG DUNN I25.10 Atherosclerotic heart disease of [place] 01/15/2016 FANG DUNN J43.9 Emphysema, unspecified 01/15/2016 FANG DUNN N28.9 Disorder of kidney and ureter, unspecifi 01/15/2016 FANG DUNN N40.0 Benign prostatic hyperplasia without low 01/15/2016 AFNG DUNN R33.9 Retention of urine, unspecified 01/15/2016 [...] needle; deep (eg, vertebral body, femur) 07/24/2015 [id number] Excision of Lumbar Vertebra, Open Akil DUNN FANG 10/30/2015 [id number] Insertion of Infusion Device into Kelsy DUNN FANG 01/10/2016 [id number] [facility]bar Vertebra, [facility]10[facility]2016 Results Test Result Range CBC - [...] ALKALINE PHOSPHATASE TOTAL 82 IU/L 45- 117 24085-9 - 01/10/16 06:00 Leukocytes [#/volume] in Blood [...] or Plasma 0.8 mg/dl 1.8 - 2.6 63484-6 - 01/10/16 08:05 Microscopic observation [Identifier] in [...] blood 26 mmol /L 23 - 34 87136-4 - 01/11/16 04:30 Leukocytes [#/volume] in Blood [...] or Plasma 1.8 mg/dl 1.8 - 2.6 92166-3 - 01/13/16 06:15 Leukocytes [#/volume] in Blood [...] Status Pt. Type Provider Facility Loc./Unit Complaint [id number] 08/26/2012 05:00:00 2012 11:02:00 DIS Inpatient Lamin MEJIA, [facility] on [address]
--- NOTE | 2016-09-18 12:25 | ERPDOC ---
Departure Disposition Decision Date: Sep 18, 2016 Disposition Decision Time: 13:11 Disposition: 02 TO [facility] Impression Impression Impression: Primary Impression: Acute pulmonary edema Severity: Moderate Condition: Stable Seen By: Mid-level only Referrals: DAYDAY AVILA MD (Family) Problems/Meds/Labs Reviewed?: Yes Medications reviewed and manag: Yes Follow up care ordered?: Yes Mental Status: Alert, Oriented HPI - Dyspnea General Chief Complaint: Dyspnea/Respdistress Stated Complaint: SHORTNESS OF BREATH Time Seen by Provider: 11:59 Source: patient Exam Limitations: no limitations HPI - Dyspnea Initial Comments For the last few weeks he has been having some trouble with shortness of breath. This is mostly at night but does have episodes during the day. He feels that most nights he does not sleep he just struggles to breath. At times would go to the front door and let the cool air hit him but this has not been helping. He does wear 3L O2 per NC at night but not typically during the day. Last night he was more concerned as he had severe chest pain as well. Denies any chest pain at this time. 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 He denies any fever or chills/cough, but has had some wheezing. Occurred At: home Onset/Timing: Gradual Duration: other (Over the last 2 weeks) Severity: moderate Activities at Onset: none Associated Symptoms: chest pain, shortness of breath, DENIES: cough, diaphoresis, fever/chills, headaches, loss of appetite, malaise, nausea/vomiting , rash, seizure, syncope, weakness Aspirin Treatment Today: unknown Hx of Similar Symptoms: No Allergies: Coded Allergies: scopolamine (Verified Allergy, Severe, HALLUCINATIONS, 09/18/16) Bacitracin Zinc (Verified Allergy, Unknown, 09/18/16) bacitracin (Verified Allergy, Unknown, 09/18/16) codeine (Verified Allergy, Unknown, 09/18/16) neomycin sulfate (Verified Allergy, Unknown, 09/18/16) polymyxin B (Verified Allergy, Unknown, 09/18/16) simvastatin (Verified Allergy, Unknown, 09/18/16) Past History Patient Surgical History Kyphoplasty Back surgery 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 Tympanostomy tubes placed 1988, 1989 TMJ meniscectomy, R 1980 Cardiac stent Colonoscopy with polpectomy 1993 colonoscopy, diverticulosis, hyperplastic polyp 03-14-2013 Manuel Transurethral treatment of bladder tumor 1990 Cystoscopy 1990 Past Medical History Metabolic: cancer, hypercholesterolemia, hypertension, hypothyroidism ENMT: ear infections Cardiac: CAD Respiratory: COPD, pneumonia Neurological: neuropathy Musculoskeletal: back pain, osteoarthritis Hematologic: anemia Psychological: depression Surgical History General: back Cardiac: cardiac cath, cardiac stent Joint: knee Vaccines Hx Influenza Vaccination: Yes (04/2016) Hx Pneumococcal Vaccination: Yes (WITHIN THE PAST 5 YEAR) Social History # of Packs/Tins per Day: 1 Second Hand Exposure: No Substance Use Type: does not use Alcohol Intake: none Marital Status: Sexuality: female partner Housing: house Household Members: spouse Service: Yes Current Occupational Status: retired Review of Systems Constitutional Constitutional: DENIES: appetite decrease, chills, dizziness, fatigue, fever, weakness Cardiovascular Cardiac: chest pain, dyspnea on exertion, DENIES: orthopnea Rhythm/Rate: DENIES: irregular beat, palpitations Vascular: DENIES: pedal edema, unilateral swelling Pulmonary Respiratory: dyspnea, DENIES: cough, sputum, tachypnea GI Upper Abdomen: DENIES: nausea, pain, vomiting Lower Abdomen: DENIES: constipation, diarrhea, pain Integumentary Skin: DENIES: rash Neurological General: DENIES: headache, numbness, tingling, weakness Physical Exam General General Nourishment: well nourished, well developed, appears stated age, no acute distress, adult General Body Habitus: well groomed Vitals and Pain First Documented Vital Signs Date Time Temp Pulse Resp B/P Pulse Ox O2 Delivery O2 Flow Rate FiO2 09/18/16 11:05 97.6 98 24 138/75 93 Nasal Cannula 2.00 Weight: Kilograms: 66.300 Height (feet): 5 Height (inches): 10.00 Triage Pain Scale: RN VS reviewed by Provider: Yes Normal Exams: Neck: Full range of motion, without adenopathy, JVD, bruits or thyromegaly CV: Regular rate and rhythm, without murmur or gallop, Pulses 2+ all extremities, capillary refill, <2 seconds all ext., no pedal edema noted Abdomen: Bowel sounds positive, soft, non-tender, non-distended, no hepatosplenomegaly, masses or bruits noted Lymphatic: No lymphadenopathy, or lymphedema noted Integumentary: No rashes, hives, or bruising noted Neurologic: Patient is alert, and oriented Psychiatric: Patient exhibits, appropriate attention, emotion and affect Respiratory (brief) Respiratory: FOUND: wheezes (slight wheezing in BLL with expiration) Differential Diagnoses Considering: Acute Bronchitis, Acute ND, Acute Respiratory Failure, CHF, COPD Exacerbation, Pneumonia, Pulmonary Edema Progress Results/Orders Orders Procedure Category Date Status Time Probnp LAB 09/18/16 Complete 12:05 Cbc W/Auto LAB 09/18/16 Complete Diff-Reflex Manual Bmp - Basic Metabolic LAB 09/18/16 Complete Panel Troponin I W LAB 09/18/16 Complete Hemolysis Index Iv Lock (Ed Only) EDM 09/18/16 Transmitted 12:05 Chest, Pa & Lateral RAD 09/18/16 Resulted EKG EKG 09/18/[address] In Facility As: ADMIT 09/18/16 Transmitted Ua, Dip Wreflex LAB 09/18/16 [employer]ged [employer]or 13:08 Ceftriaxone I.V. (Er PHA 09/18/16 In Process Use Only) (Rocephin 13:15 Lab Results Laboratory Tests Test 09/18/16 11:48 White Blood Count 14.6T/MM3 Red Blood Count 3.83M/MM3 Hemoglobin 10.7GM/DL Hematocrit 36.8% Mean Corpuscular Volume 96.1UM3 Mean Corpuscular Hemoglobin 27.9UUG Mean Corpuscular Hemoglobin Concent 29.1GM/DL RDW Standard Deviation 79.2FL Platelet Count 15T/MM3 Mean Platelet Volume UM3 Immature Granulocyte % (Auto) % Neutrophils (%) (Auto) % Lymphocytes (%) (Auto) % Monocytes (%) (Auto) % Eosinophils (%) (Auto) % Basophils (%) (Auto) % Absolute Immature Granulocyte (auto T/MM3 Absolute Neutrophils (auto) T/MM3 Absolute Lymphocytes (auto) T/MM3 Absolute Monocytes (auto) T/MM3 Absolute Eosinophils (auto) T/MM3 Absolute Basophils (auto) T/MM3 Neutrophils % (Manual) 54.0% Band Neutrophils % 9.0% Lymphocytes % (Manual) 10.0% Reactive Lymphocytes % 1.0% Monocytes % (Manual) 14.0% Metamyelocytes % 11.0% Myelocytes % 1.0% Absolute Neutrophils (Manual) 7.9T/MM3 Band Neutrophils # 1.3T/MM3 Lymphocytes # (Manual) 1.5T/MM3 Reactive Lymphocytes # 0.1T/MM3 Monocytes # (Manual) 2.0T/MM3 Metamyelocytes # 1.6T/MM3 Myelocytes # 0.1T/MM3 Poikilocytosis 2+ Anisocytosis 3+ Tear Drop Cells 1+ Ovalocytes 1+ Schistocytes 1+ Red Cell Morphology Comment Abnormal Turbidity < 20 Sodium Level 147MEQ/L Potassium Level 4.7MEQ/L Chloride Level 114MEQ/L Carbon Dioxide Level 20MEQ/L Anion Gap 13MEQ/L Blood Urea Nitrogen 46.0MG/DL Creatinine 2.0MG/DL Glomerular Filtration Rate Calc 33 BUN/Creatinine Ratio 23RATIO Glucose Level 69MG/DL Calculated Osmolality 292MOSM/KG Calcium Level 8.1MG/DL Icterus Index < 2 Troponin I < 0.012ng/ml VP-Mad-X-Type Natriuretic Peptide 34877GK/ML Chemistry Specimen Hemolysis < 15 Progress Progress WBC is 14.6 with 9% bands. Hgb is 10.7 and platelets of 15. 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 [place]roponin today [place] [address]. BUN is 46 with creatinine of 2.0. Chest xray does show moderate to severe pulmonary edema. Did discuss findings with Dr Gipson who recommends admit via hospitalist and he will follow. Did discuss findings with Dr Carreno who will admit at this time. Xray Xray : Reason for Exam: CHEST PAIN Xray: CXR PA/Lat Interpretation: Abnormal (moderate to severe pulmonary edema) XIANG MORFIN APRN Sep 18, 2016 12:25
[2016-09-18 12:26] LABS: ANION GAP 13 MEQ/L (5-15); BUN/CREATININE RATIO 23 RATIO (6-26); CALCIUM 8.1 MG/DL (8.4-10.2); CHLORIDE 114 MEQ/L (98-107); CO2 - CARBON DIOXIDE 20 MEQ/L (22-30); GLOMERULAR FILTRATION RATE 33; GLUCOSE 69 MG/DL (75-110); POTASSIUM 4.7 MEQ/L (3.6-5); SODIUM 147 MEQ/L (134-144)
--- NOTE | 2016-09-18 12:31 | NUR ---
TO XRAY PER CART.
--- NOTE | 2016-09-18 12:42 | NUR ---
BACK FROM XRAY
[2016-09-18 12:44] LABS: BAND NEUTROPHILS # 1.3 T/MM3; LYMPHOCYTES # (MANUAL) 1.5 T/MM3 (1-4.8); METAMYELOCYTES # 1.6 T/MM3; MYELOCYTES # 0.1 T/MM3; NEUTROPHILS #(MANUAL)-ABSOLUTE 7.9 T/MM3 (1.8-7.7); REACTIVE LYMPHOCYTES # 0.1 T/MM3 (0-0); TOTAL CELLS COUNTED 100 %
[2016-09-18 12:46] LABS: OVALOCYTES 1+; TEAR DROP CELLS 1+
[2016-09-18 12:47] LABS: ANISOCYTOSIS 3+; POIKILOCYTOSIS 2+; SCHISTOCYTES 1+
--- NOTE | 2016-09-18 12:55 | DI ---
INDICATION: ITS.REASON: chest pain, dyspnea PROCEDURE: CHEST 2-VIEWS UPRIGHT (PA \T\ LAT) Encounter: Initial COMPARISON: July 16, 2016 FINDINGS: Worsening interstitial opacities with groundglass airspace disease throughout both lungs. Left upper lobe irregular nodule is again seen without significant change. No pneumothorax. Small bilateral pleural effusions are new. Cardiac silhouette remains moderately enlarged. Mediastinal contours are grossly stable. Impression: Worsening pulmonary edema which appears moderate to severe. .
--- NOTE | 2016-09-18 13:08 | NUR ---
PROVIDER Deonna MORFIN GEAR TOOTH LAPPING MACHINE OPERATOR IN TO SEE PATIENT.
[2016-09-18] MEDS ORDERED: CEFTRIAXONE I.V. (ER USE ONLY) 1 G in NORMAL SALINE 100 ML IV ONE (13:15)
--- OUTSIDE RECORDS SUMMARY | 2016-09-18 13:40 | XMS REPORT | Continuity of Care Document ---
Author Author [facility] Organization [facility] Address Unknown Phone Unavailable Support Name Relationship Address Phone RALPH LEAL II, MD Caregiver [address] [phone] ISAAC MELTON MD Caregiver [address] [place] [phone] ARLINE MARCANO MD Caregiver [address] [place] [phone] DONYA LÓPEZ Next Of Kin [address] [place] [id number] Insurance Providers Payer Name Policy Number Subscriber Name Relationship Medicare [id number] Chucho López 20 Self Medicare Supp Wps [id number] Chucho López 20 Self Problems Medical Problems [...] F (96.8 - 99.1) Temperature (Calculated Celsius) 36.59597 degrees C (36.0 - 37.3) Pulse Rate [...] Has specimen been collected/obtained? Y Urine Specific [place] July 20, 2013 1:45pm 1.010 L - [...] 02, 2014 9:03am LAB TEST FORM REQUEST [id number] - HDL Cholesterol Direct May 02, 2014 [...] 2 0-7 Name: CHUCHO LÓPEZ Unit #: [id number] : 1940 Sex: M Loc / Svc: [facility] DOS: 08/28/14 Signed Report #: [id number] DIAGNOSTIC IMAGING REPORT TYPE OF EXAM: PELVIS [...] Encounters Encounter Location Date/Time Departed Emergency Room [facility] 09/13/14 7:57pm Registered Clinic [facility] 08/28/14 10:21am Recent Diagnosis
--- OUTSIDE RECORDS SUMMARY | 2016-09-18 13:43 | XMS REPORT | Continuity of Care Document ---
Author Author [facility] Organization [facility] Address Unknown Phone Unavailable Allergies Active Description Code Type Severity Reaction Onset Reported/Identified Relationship to Patient Clinical Status Yes No Known Food Allergies Food Allergy 08/24/2012 Yes Codeine Drug Allergy Nausea/Vomiting 08/27/2012 Yes CODEINE 43628 1 Nausea 06/03/2013 Yes codeine NKMA N/A Nausea/Vomiting 09/30/2013 Yes codeine NKMA N/A Nausea/Vomiting 09/30/2013 Yes codeine codeine Drug Allergy Unknown U 12/26/2013 Yes codeine codeine Drug Allergy Unknown U 12/26/2013 Yes NEOSPORIN 20840 1 SKIN IRRITATION 01/24/2014 Yes ZOCOR 57902 2 HEADACHE AND NAUSEA 01/24/2014 Yes scopolamine [...] Oral, q12hr, 60 tabs, 0 Refill(s ) HYDROcodone-acetaminophen([place] 10 mg-325 mg oral tablet) 1 tabs 05/18/2015 06/19/2015 Oral 1 tabs, Oral, TID, PRN: Pain - Breakthrough, 80 tabs, 0 Refill(s) HYDROcodone-acetaminophen([place] 10 mg-325 mg oral tablet) 1 tabs [...] 2 MG/1ML SYRINGE ML 10/30/2015 10/29/2016 IVP [id number] MORPHINE 4MG/1ML SYRINGE ML 10/30/2015 10/29/2016 IVP [id number] BISACODYL 10MG SUPPOS. SUP 10/30/2015 10/29/2016 UT* PRN LORazepam 0.5MG TABLET TAB 10/30/2015 10/29/2016 PO Q4HPRN BISACODYL 5MG TABLET TAB 10/30/2015 10/29/2016 PO PRN PHENOL 1.4% THROAT SPRAY [118ML] EA 10/30/2015 10/29/2016 PO PRN KETOROLAC 30 MG/1ML INJ DOS 10/30/2015 10/29/2016 IVP Q4MLSLK SODIUM CHLORIDE 0.9% 10ML FLUSH SYRINGE SYR [...] METOCLOPRAMIDE 10MG/2ML INJ VL 10/30/2015 10/29/2016 IVP [id number] FAMOTIDINE 20 MG TABLET TAB 10/30/2015 10/29/2016 [...] METOCLOPRAMIDE 10MG TABLET TAB 10/31/2015 10/30/2016 PO B5PNHZZM magnesium citrate(magnesium citrate) 11/05/2015 Oral Oral, 0 [...] 2 MG/1ML SYRINGE ML 01/10/2016 01/09/2017 IVP J9EBYMI MORPHINE 4MG/1ML SYRINGE ML 01/10/2016 01/09/2017 IVP U4NNRRG BISACODYL 10MG SUPPOS. 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 10/31/2015 FANG DUNN I73.9 Peripheral vascular disease, [...] Z72.0 Tobacco use 10/31/2015 FANG DUNN Z79.01 penitentiary (current) use of anticoagulant 10/31/2015 FANG DUNN [...] FANG DUNN 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 01/15/2016 FANG DUNN J43.9 Emphysema, unspecified 01/15/2016 [...] needle; deep (eg, vertebral body, femur) 07/24/2015 [id number] Excision of Lumbar Vertebra, Open Akil DUNN FANG 10/30/2015 [id number] Insertion of Infusion Device into Kelsy DUNN FANG 01/10/2016 [id number] Excision of [facility]bar Vertebra, [facility]/10[facility]2016 Results Test Result Range CBC [...] ALKALINE PHOSPHATASE TOTAL 82 IU/L 45- 117 46999-0 - 01/10/16 06:00 Leukocytes [#/volume] in Blood [...] or Plasma 0.8 mg/dl 1.8 - 2.6 86520-4 - 01/10/16 08:05 Microscopic observation [Identifier] in [...] blood 26 mmol /L 23 - 34 16435-2 - 01/11/16 04:30 Leukocytes [#/volume] in Blood [...] or Plasma 1.8 mg/dl 1.8 - 2.6 00456-9 - 01/13/16 06:15 Leukocytes [#/volume] in Blood [...] Status Pt. Type Provider Facility Loc./Unit Complaint [id number] 08/26/2012 05:00:00 2012 11:02:00 DIS Inpatient Lamin MEJIA, [facility] on [address]
[2016-09-18] MEDS ORDERED: NORMAL SALINE 500 ML IV SCH (13:51)
--- NOTE | 2016-09-18 14:00 | NUR ---
REPORT GIVEN TO KALEN BERTRAND.
--- NOTE | 2016-09-18 14:08 | HPPDOC ---
MICHELLE VELASQUEZ V [employer]OU[employer] HELPER 09/18/16 1357: HPI - Adult Date DATE: 09/18/16 TIME: 13:54 General Chief Complaint: Dyspnea, Chest Pain History of Present Illness Chucho is a pleasant 76yr old male who presented to the emergency room for evaluation of shortness of breath and chest pain. He reports that he has had increased shortness of breath over the last several weeks, however, noted to be significantly worse over the last 24 hours. He reports that he is having chest tightness which is worse at night when he is attempting to lay back and sleep. He generally uses 3 liters of oxygen by nasal cannula at night. However, has required [id number] at times. On arrival to the emergency room further evaluation including laboratory studies and x-ray were obtained. Patient was found have an elevated white count at 14.6, hemoglobin 10.7, hematocrit 36.8, platelet count critically low at 15. Sodium is 147, potassium 4.7, BUN 46, creatinine 2.0. Troponin is negative, less than 0.012, proBNP 67,400. Chest x- ray is obtained showing moderate to severe pulmonary edema. She was empirically treated with IV Rocephin in the emergency room. The hospitalist services were contacted and accepted patient for inpatient admission for further evaluation and treatment. Past Medical History Past Medical History Myelodysplastic Syndrome Hypercholesterolemia Hypertension Hypothyroidism Coronary artery disease COPD Neuropathy Back pain Osteoarthritis Depression Surgical History Patient's Surgical History: Kyphoplasty Back surgery 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 Tympanostomy tubes placed 1988, 1989 TMJ meniscectomy, R 1980 Cardiac stent Colonoscopy with polpectomy 1993 colonoscopy, diverticulosis, hyperplastic polyp 03-14-2013 Manuel Transurethral treatment of bladder tumor 1990 Cystoscopy 1990 Current Medications Home Meds Reported Medications Doxylamine Succinate (Unisom Sleep Aid) 25 Mg Tablet, 1 TAB PO HS Y for PRN ORDERS 09/18/16 Cyanocobalamin/Folic Acid (Vitamin A49-Jktdc Acid Tablet) 1 Each Tablet, 1 TAB PO DAILY 09/18/16 Tiotropium [place]outh [place] (Spiriva) 1 Cap Inhaler, 1 CAP ORAL INH DAILY 09/18/16 Mexiletine HCl (Mexiletine HCl) 150 Mg Capsule, 150 MG PO BID 09/18/16 Metoprolol Tartrate (Metoprolol Tartrate) 25 Mg Tablet, 25 MG PO DAILY 09/18/16 Magnesium Oxide (Magnesium) 500 Mg Capsule, 500 MG PO DAILY 09/18/16 Hydroxyzine HCl (Hydroxyzine HCl) 25 Mg Tablet, 25 MG PO TID Y for ANXIETY 09/18/16 Duloxetine HCl (Duloxetine HCl) 60 Mg Capsule.dr, 60 MG PO DAILY 09/18/16 Alendronate Sodium (Alendronate Sodium) 70 Mg Tablet, 70 MG PO Q7D 09/18/16 Albuterol Sulfate (Albuterol Sulfate) 2.5 Mg/3 Ml Vial.neb, 2.5 MG AEROSOL TID Y for SHORTNESS OF AIR/WHEEZING 09/18/16 Minocycline HCl (Minocycline HCl) 100 Mg Capsule, 100 MG PO BID 05/26/16 Pravastatin Sodium (Pravastatin Sodium) 20 Mg Tablet, 20 MG PO HS 05/26/16 Furosemide (Furosemide) 40 Mg Tablet, 40 MG PO DAILY 05/26/16 Tamsulosin HCl (Tamsulosin HCl) 0.4 Mg Cap.er.24h, 0.4 MG PO HS 05/09/16 Pregabalin (Lyrica) 200 Mg Capsule, 200 MG PO TID 08/19/15 Ropinirole HCl (Ropinirole HCl) 1 Mg Tablet, 1.5 MG PO HS 08/19/15 Folic Acid (Folic Acid) 1 Mg Tablet, 1 MG PO DAILY 06/28/15 Aspirin (Aspirin) 81 Mg Tablet, 81 MG PO DAILY 09/11/10 Allergies: Coded Allergies: scopolamine (Verified Allergy, Severe, HALLUCINATIONS, 09/18/16) Bacitracin Zinc (Verified Allergy, Unknown, 09/18/16) bacitracin (Verified Allergy, Unknown, 09/18/16) codeine (Verified Allergy, Unknown, 09/18/16) neomycin sulfate (Verified Allergy, Unknown, 09/18/16) polymyxin B (Verified Allergy, Unknown, 09/18/16) simvastatin (Verified Allergy, Unknown, 09/18/16) Family History Family History: Brother: PNA, colon CA, EtOH abuse, Father: [place] worker's pneumoconiosis Mother: [place], HLD, HTN Sister: [place] - at age 52, breast CA Social History Smoking Status: Former smoker # of Packs/Tins per Day: 1 Second Hand Exposure: No Substance Use Type: does not use Alcohol Intake: none Marital Status: Sexuality: female partner Housing: house Household Members: spouse Service: Yes Current Occupational Status: retired Advance Directives: Yes DPOA for Healthcare Only, Yes Full Code Social History Comments PCP Dr Ferrari Review of Systems Constitutional: REPORTS: fatigue, weakness Cardiovascular chest pain, dyspnea on exertion Pulmonary Respiratory: dyspnea, tachypnea Neurological General: weakness All Other Systems All Other Systems: Reviewed (remainder of 10-point ROS Neg.) Physical Exam General General Nourishment: well nourished, well developed Vital Signs Vital Signs Date Time Temp Pulse Resp B/P Pulse Ox O2 Delivery O2 Flow Rate FiO2 09/18/16 12:47 98 22 128/85 96 Nasal Cannula 2.00 09/18/16 11:05 97.6 Height (Feet): 5 Height (Inches): 10.00 Eyes Brief: FOUND: EOMI Comments Course breath sounds Cardiovascular (brief) Cardiac Brief: FOUND: pedal edema (bilateral lower ext), regular rate, regular rhythm Abdomen (brief) Abdominal Brief: FOUND: BS normo active x4, soft, NOT FOUND: distended, tender Integumentary (brief) Integumentary Brief: FOUND: dry, pink, warm Neurologic (brief) Neurological Brief: FOUND: cranial 2-12 intact, motor Neurologic RN Documented GCS Eye Opening: Verbal: Motor: Total: Psychiatric (brief) FOUND: alert, attentive, normal affect, oriented Laboratory Laboratory Tests Test 09/18/16 11:48 White Blood Count 14.6T/MM3 Red Blood Count 3.83M/MM3 Hemoglobin 10.7GM/DL Hematocrit 36.8% Mean Corpuscular Volume 96.1UM3 Mean Corpuscular Hemoglobin 27.9UUG Mean Corpuscular Hemoglobin Concent 29.1GM/DL RDW Standard Deviation 79.2FL Platelet Count 15T/MM3 Mean Platelet Volume UM3 Immature Granulocyte % (Auto) % Neutrophils (%) (Auto) % Lymphocytes (%) (Auto) % Monocytes (%) (Auto) % Eosinophils (%) (Auto) % Basophils (%) (Auto) % Absolute Immature Granulocyte (auto T/MM3 Absolute Neutrophils (auto) T/MM3 Absolute Lymphocytes (auto) T/MM3 Absolute Monocytes (auto) T/MM3 Absolute Eosinophils (auto) T/MM3 Absolute Basophils (auto) T/MM3 Neutrophils % (Manual) 54.0% Band Neutrophils % 9.0% Lymphocytes % (Manual) 10.0% Reactive Lymphocytes % 1.0% Monocytes % (Manual) 14.0% Metamyelocytes % 11.0% Myelocytes % 1.0% Absolute Neutrophils (Manual) 7.9T/MM3 Band Neutrophils # 1.3T/MM3 Lymphocytes # (Manual) 1.5T/MM3 Reactive Lymphocytes # 0.1T/MM3 Monocytes # (Manual) 2.0T/MM3 Metamyelocytes # 1.6T/MM3 Myelocytes # 0.1T/MM3 Poikilocytosis 2+ Anisocytosis 3+ Tear Drop Cells 1+ Ovalocytes 1+ Schistocytes 1+ Red Cell Morphology Comment Abnormal Turbidity < 20 Sodium Level 147MEQ/L Potassium Level 4.7MEQ/L Chloride Level 114MEQ/L Carbon Dioxide Level 20MEQ/L Anion Gap 13MEQ/L Blood Urea Nitrogen 46.0MG/DL Creatinine 2.0MG/DL Glomerular Filtration Rate Calc 33 BUN/Creatinine Ratio 23RATIO Glucose Level 69MG/DL Calculated Osmolality 292MOSM/KG Calcium Level 8.1MG/DL Icterus Index < 2 Troponin I < 0.012ng/ml YI-Kpj-N-Type Natriuretic Peptide 67182DR/ML Chemistry Specimen Hemolysis < 15 Assessment & Plan Problems: (1) Pulmonary edema Status: Acute Qualifiers: Chronicity: acute Qualified Codes: J81.0 - Acute pulmonary edema (2) Thrombocytopenia Status: Chronic Assessment & Plan: Acute on chronic (3) MDS (myelodysplastic syndrome) Status: Chronic (4) Non-small cell cancer of left lung Status: Chronic (5) COPD (chronic obstructive pulmonary disease) Status: Chronic (6) CAD (coronary artery disease) Status: Chronic (7) HLD (hyperlipidemia) Status: Chronic (8) Peripheral neuropathy Status: Chronic (9) Anemia Status: Chronic (10) Restless leg syndrome Status: Chronic (11) Hypothyroidism Status: Chronic (12) Spinal stenosis Status: Chronic (13) Osteoarthritis Status: Chronic Plan/Intensity of Service Patient inpatient status under the care of Dr. Carreno for acute pulmonary edema with thrombocytopenia Patient does have known thrombocytopenia. Given severity of platelet count of 15. Will transfuse 1 unit of leuko-reduced irradiated platelets now. Due to acute leukocytosis will start on Rocephin. UA pending. Start Lasix 40 mg IV every 8 hours for diuresis. Use caution given elevated Tumbler Operator of 2.0. Obtain ECHO and consultation with Dr Gipson for cardiac evaluation. Monitor or cardiac telemetry Obtain magnesium, hepatic panel for laboratory completeness on admission Oxygen therapy to maintain adequate saturations, currently requiring 2 liters by nasal cannula. Did review home medications. Continue with routine meds, as well as inhalers for chronic COPD SCDs to bilateral lower extremity for DVT prophylaxis Recheck CBC and BMP tomorrow morning to follow blood counts, renal function and electrolytes Patient does request to be a full code and this order is written Will discuss further orders and plan of care with attending, Dr. Carreno. At time of discharge medical care will return to primary care provider. Dr. Ferrari Code Status Full Code Hospital Course Summary Disclaimer The hospital course summary below is not to be considered part of the above Progress Note. Hospital Course Summary Patient inpatient status under the care of Dr. Carreno for acute pulmonary edema with thrombocytopenia Patient does have known thrombocytopenia. Given severity of platelet count of 15. Will transfuse 1 unit of leuko-reduced irradiated platelets now. Due to acute leukocytosis will start on Rocephin. UA pending. Start Lasix 40 mg IV every 8 hours for diuresis. Use caution given elevated Tumbler Operator of 2.0. Obtain ECHO and consultation with Dr Gipson for cardiac evaluation. Monitor or cardiac telemetry Obtain magnesium, hepatic panel for laboratory completeness on admission Oxygen therapy to maintain adequate saturations, currently requiring 2 liters by nasal cannula. Did review home medications. Continue with routine meds, as well as inhalers for chronic COPD SCDs to bilateral lower extremity for DVT prophylaxis Recheck CBC and BMP tomorrow morning to follow blood counts, renal function and electrolytes Patient does request to be a full code and this order is written Will discuss further orders and plan of care with attending, Dr. Carreno. At time of discharge medical care will return to primary care provider. JOHN Benson MD 09/18/16 7322: Past Medical History Current Medications Home Meds Reported Medications Doxylamine Succinate (Unisom Sleep Aid) 25 Mg Tablet, 1 TAB PO HS Y for PRN ORDERS 09/18/16 Cyanocobalamin/Folic Acid (Vitamin Z00-Ncwcm Acid Tablet) 1 Each Tablet, 1 TAB PO DAILY 09/18/16 Tiotropium [place] (Spiriva) 1 Cap Inhaler, 1 CAP ORAL INH DAILY 09/18/16 Mexiletine HCl (Mexiletine HCl) 150 Mg Capsule, 150 MG PO BID 09/18/16 Metoprolol Tartrate (Metoprolol Tartrate) 25 Mg Tablet, 25 MG PO DAILY 09/18/16 Magnesium Oxide (Magnesium) 500 Mg Capsule, 500 MG PO DAILY 09/18/16 Hydroxyzine HCl (Hydroxyzine HCl) 25 Mg Tablet, 25 MG PO TID Y for ANXIETY 09/18/16 Duloxetine HCl (Duloxetine HCl) 60 Mg Capsule.dr, 60 MG PO DAILY 09/18/16 Alendronate Sodium (Alendronate Sodium) 70 Mg Tablet, 70 MG PO Q7D 09/18/16 Albuterol Sulfate (Albuterol Sulfate) 2.5 Mg/3 Ml Vial.neb, 2.5 MG AEROSOL TID Y for SHORTNESS OF AIR/WHEEZING 09/18/16 Minocycline HCl (Minocycline HCl) 100 Mg Capsule, 100 MG PO BID 05/26/16 Pravastatin Sodium (Pravastatin Sodium) 20 Mg Tablet, 20 MG PO HS 05/26/16 Furosemide (Furosemide) 40 Mg Tablet, 40 MG PO DAILY 05/26/16 Tamsulosin HCl (Tamsulosin HCl) 0.4 Mg Cap.er.24h, 0.4 MG PO HS 05/09/16 Pregabalin (Lyrica) 200 Mg Capsule, 200 MG PO TID 08/19/15 Ropinirole HCl (Ropinirole HCl) 1 Mg Tablet, 1.5 MG PO HS 08/19/15 Folic Acid (Folic Acid) 1 Mg Tablet, 1 MG PO DAILY 06/28/15 Aspirin (Aspirin) 81 Mg Tablet, 81 MG PO DAILY 09/11/10 Allergies: Coded Allergies: scopolamine (Verified Allergy, Severe, HALLUCINATIONS, 09/18/16) Bacitracin Zinc (Verified Allergy, Unknown, 09/18/16) bacitracin (Verified Allergy, Unknown, 09/18/16) codeine (Verified Allergy, Unknown, 09/18/16) neomycin sulfate (Verified Allergy, Unknown, 09/18/16) polymyxin B (Verified Allergy, Unknown, 09/18/16) simvastatin (Verified Allergy, Unknown, 09/18/16) Assessment & Plan Problems: (1) Pulmonary edema Status: Acute Qualifiers: Chronicity: acute Qualified Codes: J81.0 - Acute pulmonary edema (2) Acute respiratory insufficiency Status: Acute (3) Leukocytosis Status: Acute (4) Thrombocytopenia Status: Chronic Assessment & Plan: Acute on chronic (5) Hypomagnesemia Status: Acute Assessment & Plan: POA (6) MDS (myelodysplastic syndrome) Status: Chronic (7) Non-small cell cancer of left lung Status: Chronic (8) COPD (chronic obstructive pulmonary disease) Status: Chronic (9) Nocturnal hypoxemia Status: Chronic Assessment & Plan: Uses O2 at night. (10) CAD (coronary artery disease) Status: Chronic (11) HTN (hypertension) Status: Chronic (12) HLD (hyperlipidemia) Status: Chronic (13) Peripheral neuropathy Status: Chronic (14) Anemia Status: Chronic (15) Restless leg syndrome Status: Chronic (16) Hypothyroidism Status: Chronic (17) Spinal stenosis Status: Chronic (18) Osteoarthritis Status: Chronic (19) Depression Status: Chronic Qualifiers: Depression Type: unspecified Qualified Codes: F32.9 - Major depressive disorder, single episode, unspecified (20) BPH (benign prostatic hyperplasia) Status: Chronic Qualifiers: Prostatic enlargement morphology: unspecified morphology Lower urinary tract symptom presence: presence of symptoms unspecified Qualified Codes: N40.0 - Benign prostatic hyperplasia without lower urinary tract symptoms (21) Age related osteoporosis Status: Chronic Qualifiers: Presence of current pathological fracture: without current pathological fracture Qualified Codes: M81.0 - Age-related osteoporosis without current pathological fracture Plan/Intensity of Service Have independently interviewed and examined pt. Chart reviewed. Case discussed with ED provider and my SALES ROUTE DRIVER HELPER. Care plan developed with my supervision; agree with above. Feeling rough for the past 3 days-increased SOA. Very congested-cannot get air in. No cough or sputum. Chest wall sore from breathing so hard. No f/c. Slight nausea, decreased appetite. Bowel stable-moving normally without diarrhea or constipation. Notes palpitations. Increased edema of ankles. Not having urinary pain. More tired and weak in general, but no falls or trauma. Lungs: decreased, diffuse crackles-not appreciating wheezes. Decreased air movement. Conversational dyspnea despite O2 therapy. CV: regular AB: Soft nt/nd +BS Ext: +2 pedal edema MSE: awake alert appropriate Plan: Inpatient admission for treatment of pulmonary edema - anticipate greater than 2 midnights of care needed. Tele. ECHO. Lasix 40mg IV q8 hours to motivate fluid. Replace magnesium - 2g IV bolus and continue oral. Mucinex DM BID to minimize secretions. Acapella to help loosen secretions. Potentially may need steroid. Consult with Dr Tapia due to pulmonary edema for cardiac eval. Transfuse platelets - hold anticoagulants. SCD for DVT prevention. Supplemental O2 for respiratory support. Monitor lab. DVT Prophylaxis: SCD'S MICHELLE VELASQUEZ APRN Sep 18, 2016 13:57 JOHN CARRENO MD Sep 18, 2016 18:32
--- NOTE | 2016-09-18 14:10 | NUR ---
ADMIT PT ADMITTED FROM ER. TRANSFER VIA SLIDE BOARD. ON 2L PER NC ON ARRIVAL. EDUCATED ON HOSPITAL ENVIRONMENT. IV LOCKED IN LEFT AC. REPORT GIVEN TO PHILLIP CAMPUZANO RN
[2016-09-18 14:12] VITALS: BP 119/77; PULSE 91; RESP 18; TEMP 97.1
[2016-09-18 14:16] VITALS: Ht 177.8 cm; Wt 63.0 kg
[2016-09-18 14:34] VITALS: PULSE 91; RESP 18; O2SAT 96
[2016-09-18 14:46] VITALS: O2SAT 100
[2016-09-18] MEDS: FUROSEMIDE 40 MG/4 ML INJECTION IV SCH ×2 (14:49→22:30)
[2016-09-18] MEDS ORDERED: ALBUTEROL INH.SOLN. 2.5mg/3ml (0.083%) Neb. AEROSOL PRN (15:30)
[2016-09-18 15:34] LABS: ALBUMIN 2.8 G/DL (3.5-5.0); ALBUMIN/GLOBULIN RATIO 0.8 RATIO (1.1-2.2); ALKALINE PHOSPHATASE 56 U/L (38-126); ALT (SGPT) 18 U/L (21-72); AST (SGOT) 16 U/L (17-59); MAGNESIUM 1.1 MG/DL (1.6-2.3); TOTAL PROTEIN 6.5 G/DL (6.3-8.2)
[2016-09-18] MEDS ORDERED: DOXY25TA42 PO (16:32)
[2016-09-18] MEDS: MAGNESIUM SULF 1gm / D5W 100ml 100 ML IV SCH ×2 (17:20→19:55)
[2016-09-18 17:40] LABS: BLOOD, URINE TRACE-INTACT (NEGATIVE); COLOR,URINE YELLOW (YELLOW); LEUKOCYTE ESTERASE ,URINE NEGATIVE (NEGATIVE); NITRITE,URINE NEGATIVE (NEGATIVE); UROBILINOGEN,URINE 0.2 EU/DL (NORMAL)
[2016-09-18] MEDS ORDERED: MAG-AL + SIM LIQUID 30 ML UDC PO PRN (18:00)
[2016-09-18] MEDS ORDERED: BISACODYL 10 MG SUPPOSITORY RECTALLY PRN (18:00)
[2016-09-18] MEDS ORDERED: LORAZEPAM 2 MG/ML INJECTION IV PRN (18:00)
[2016-09-18] MEDS ORDERED: MILK OF MAGNESIA 30 ML SUSP PO PRN (18:00)
[2016-09-18] MEDS ORDERED: NITROGLYCERIN 0.4 MG SUBLINGUAL TABLET SL PRN (18:00)
[2016-09-18] MEDS ORDERED: PRN ORDERS MC (18:00)
[2016-09-18] MEDS ORDERED: ONDANSETRON 4mg/2ml INJECTION IV PRN (18:30)
--- NOTE | 2016-09-18 18:43 | NUR ---
Status Patient alert and oriented x3. VSS. On 2L NC. Up with assist x1 in room. Patient transfers from bed to scooter and uses scooter to get to bathroom. IV infusing through left AC IV. Patient received one unit of platelets with no s/s of reaction. Patient voided once since arrival and had one BM. SCD's in place. Currently resting in bed with at bedside.
--- NOTE | 2016-09-18 18:53 | CONSPD ---
SHILPA RIVAS BUSINESS LAW TEACHER 09/18/16 1527: Consultation Info Date DATE: 09/18/16 TIME: 15:24 Date of Consultation: Sep 18, 2016 Attending Physician: Josué Carreno MD Reason for Consultation: Pulmonary edema HPI - Adult Date DATE: 09/18/16 TIME: 15:24 General Date of Admission Date of Admission: Sep 18, 2016 at 13:11 Chief Complaint: Dyspnea, Chest Pain History of Present Illness Chucho is a pleasant 76yr old male who presented to the emergency room for evaluation of shortness of breath and chest pain. He reports that he has had increased shortness of breath over the last several weeks, however, noted to be significantly worse over the last 24 hours. He reports that he is having chest tightness which is worse at night when he is attempting to lay back and sleep. He generally uses 3 liters of oxygen by nasal cannula at night. However, has required [id number] at times. On arrival to the emergency room further evaluation including laboratory studies and x-ray were obtained. Patient was found have an elevated white count at 14.6, hemoglobin 10.7, hematocrit 36.8, platelet count critically low at 15. Sodium is 147, potassium 4.7, BUN 46, creatinine 2.0. Troponin is negative, less than 0.012, proBNP 67,400. Chest x- ray is obtained showing moderate to severe pulmonary edema. She was empirically treated with IV Rocephin in the emergency room. The hospitalist services were contacted and accepted patient for inpatient admission for further evaluation and treatment. Past Medical History Past Medical History Metabolic: cancer, hypercholesterolemia, hypertension, hypothyroidism ENMT: ear infections Cardiac: CAD Respiratory: COPD, pneumonia Neurological: neuropathy Musculoskeletal: back pain, osteoarthritis Hematologic: anemia Psychological: depression Surgical History General: back Cardiac: cardiac cath, cardiac stent Joint: knee Current Medications Home Meds Reported Medications Doxylamine Succinate (Unisom Sleep Aid) 25 Mg Tablet, 1 TAB PO HS Y for PRN ORDERS 09/18/16 Cyanocobalamin/Folic Acid (Vitamin E48-Ydfdq Acid Tablet) 1 Each Tablet, 1 TAB PO DAILY 09/18/16 Tiotropium [place] (Spiriva) 1 Cap Inhaler, 1 CAP ORAL INH DAILY 09/18/16 Mexiletine HCl (Mexiletine HCl) 150 Mg Capsule, 150 MG PO BID 09/18/16 Metoprolol Tartrate (Metoprolol Tartrate) 25 Mg Tablet, 25 MG PO DAILY 09/18/16 Magnesium Oxide (Magnesium) 500 Mg Capsule, 500 MG PO DAILY 09/18/16 Hydroxyzine HCl (Hydroxyzine HCl) 25 Mg Tablet, 25 MG PO TID Y for ANXIETY 09/18/16 Duloxetine HCl (Duloxetine HCl) 60 Mg Capsule.dr, 60 MG PO DAILY 09/18/16 Alendronate Sodium (Alendronate Sodium) 70 Mg Tablet, 70 MG PO Q7D 09/18/16 Albuterol Sulfate (Albuterol Sulfate) 2.5 Mg/3 Ml Vial.neb, 2.5 MG AEROSOL TID Y for SHORTNESS OF AIR/WHEEZING 09/18/16 Minocycline HCl (Minocycline HCl) 100 Mg Capsule, 100 MG PO BID 05/26/16 Pravastatin Sodium (Pravastatin Sodium) 20 Mg Tablet, 20 MG PO HS 05/26/16 Furosemide (Furosemide) 40 Mg Tablet, 40 MG PO DAILY 05/26/16 Tamsulosin HCl (Tamsulosin HCl) 0.4 Mg Cap.er.24h, 0.4 MG PO HS 05/09/16 Pregabalin (Lyrica) 200 Mg Capsule, 200 MG PO TID 08/19/15 Ropinirole HCl (Ropinirole HCl) 1 Mg Tablet, 1.5 MG PO HS 08/19/15 Folic Acid (Folic Acid) 1 Mg Tablet, 1 MG PO DAILY 06/28/15 Aspirin (Aspirin) 81 Mg Tablet, 81 MG PO DAILY 09/11/10 Allergies: Coded Allergies: scopolamine (Verified Allergy, Severe, HALLUCINATIONS, 09/18/16) Bacitracin Zinc (Verified Allergy, Unknown, 09/18/16) bacitracin (Verified Allergy, Unknown, 09/18/16) codeine (Verified Allergy, Unknown, 09/18/16) neomycin sulfate (Verified Allergy, Unknown, 09/18/16) polymyxin B (Verified Allergy, Unknown, 09/18/16) simvastatin (Verified Allergy, Unknown, 09/18/16) Vaccines Apr 2016 05/11/2016201102/26/16 Social History Smoking Status: Former smoker # of Packs/Tins per Day: 1 Second Hand Exposure: No Substance Use Type: does not use Alcohol Intake: none Marital Status: Sexuality: female partner Housing: house Household Members: spouse Service: Yes Current Occupational Status: retired Advance Directives: Yes DPOA for Healthcare Only (DONYA TAYLOR, PETE JENNINGS), Yes Full Code Review of Systems Constitutional: REPORTS: fatigue, weakness, DENIES: chills, dizziness, fever, syncope ENMT Hearing: DENIES: tinnitus Balance: DENIES: vertigo Sinuses: NOT FOUND: rhinorrhea Mouth/Throat: DENIES: sore throat Cardiovascular orthopnea, DENIES: chest pain, paroxysmal nocturnal dysp Rhythm/Rate: DENIES: irregular beat, palpitations Vascular: pedal edema Pulmonary Respiratory: dyspnea, tachypnea, DENIES: cough GI Upper Abdomen: DENIES: nausea, vomiting Lower Abdomen: DENIES: diarrhea General: DENIES: dysuria Integumentary Skin: DENIES: rash, sores Neurological General: weakness, DENIES: headache, numbness, syncope All Other Systems All Other Systems: Reviewed (remainder of 10-point ROS Neg.) Physical Exam General General Nourishment: well nourished, well developed Vital Signs Vital Signs Date Time Temp Pulse Resp B/P Pulse Ox O2 Delivery O2 Flow Rate FiO2 09/18/16 14:46 100 Nasal Cannula 09/18/16 14:34 91 18 2.00 09/18/16 14:12 97.1 119/77 Height (Feet): 5 Height (Inches): 10.00 Telemetry Rhythm: Sinus Rhythm Telemetry Ectopy: PVC ENMT Brief: FOUND: mucosa moist Neck Brief: NOT FOUND: JVD, carotid bruits Respiratory Brief: FOUND: equal bilaterally, rales (bibasilar), NOT FOUND: clear all horner Cardiovascular (brief) Cardiac Brief: FOUND: pedal edema (trace), regular rate, NOT FOUND: click, gallop, murmur, regular rhythm Abdomen (brief) Abdominal Brief: FOUND: BS normo active x4, soft, NOT FOUND: tender Integumentary (brief) Integumentary Brief: FOUND: dry, warm Neurologic RN Documented GCS Eye Opening: Verbal: Motor: Total: Psychiatric (brief) FOUND: alert, oriented Laboratory Laboratory Tests Test 09/18/16 11:48 White Blood Count 14.6T/MM3 Red Blood Count 3.83M/MM3 Hemoglobin 10.7GM/DL Hematocrit 36.8% Mean Corpuscular Volume 96.1UM3 Mean Corpuscular Hemoglobin 27.9UUG Mean Corpuscular Hemoglobin Concent 29.1GM/DL RDW Standard Deviation 79.2FL Platelet Count 15T/MM3 Mean Platelet Volume UM3 Immature Granulocyte % (Auto) % Neutrophils (%) (Auto) % Lymphocytes (%) (Auto) % Monocytes (%) (Auto) % Eosinophils (%) (Auto) % Basophils (%) (Auto) % Absolute Immature Granulocyte (auto T/MM3 Absolute Neutrophils (auto) T/MM3 Absolute Lymphocytes (auto) T/MM3 Absolute Monocytes (auto) T/MM3 Absolute Eosinophils (auto) T/MM3 Absolute Basophils (auto) T/MM3 Neutrophils % (Manual) 54.0% Band Neutrophils % 9.0% Lymphocytes % (Manual) 10.0% Reactive Lymphocytes % 1.0% Monocytes % (Manual) 14.0% Metamyelocytes % 11.0% Myelocytes % 1.0% Absolute Neutrophils (Manual) 7.9T/MM3 Band Neutrophils # 1.3T/MM3 Lymphocytes # (Manual) 1.5T/MM3 Reactive Lymphocytes # 0.1T/MM3 Monocytes # (Manual) 2.0T/MM3 Metamyelocytes # 1.6T/MM3 Myelocytes # 0.1T/MM3 Poikilocytosis 2+ Anisocytosis 3+ Tear Drop Cells 1+ Ovalocytes 1+ Schistocytes 1+ Red Cell Morphology Comment Abnormal Turbidity < 20 Sodium Level 147MEQ/L Potassium Level 4.7MEQ/L Chloride Level 114MEQ/L Carbon Dioxide Level 20MEQ/L Anion Gap 13MEQ/L Blood Urea Nitrogen 46.0MG/DL Creatinine 2.0MG/DL Glomerular Filtration Rate Calc 33 BUN/Creatinine Ratio 23RATIO Glucose Level 69MG/DL Calculated Osmolality 292MOSM/KG Calcium Level 8.1MG/DL Icterus Index < 2 Troponin I < 0.012ng/ml CV-Erb-S-Type Natriuretic Peptide 70502HI/ML Chemistry Specimen Hemolysis < 15 EKG SR, frequent PVCs Radiology DATE OF EXAM: 09/18/16 ORDERING DOCTOR: XIANG MORFIN APRN TYPE OF EXAM: CHEST, PA & LATERAL REASON FOR EXAM: chest pain, dyspnea INDICATION: ITS.REASON: chest pain, dyspnea PROCEDURE: CHEST 2-VIEWS UPRIGHT (PA \T\ LAT) Encounter: Initial COMPARISON: July 16, 2016 FINDINGS: Worsening interstitial opacities with groundglass airspace disease throughout both lungs. Left upper lobe irregular nodule is again seen without significant change. No pneumothorax. Small bilateral pleural effusions are new. Cardiac silhouette remains moderately enlarged. Mediastinal contours are grossly stable. Impression: Worsening pulmonary edema which appears moderate to severe. Impression/Recommendation Problems: (1) Pulmonary edema Status: Acute Assessment & Plan: Agree with diuresis with Lasix, will wait and watch response , follow renal and lytes. (2) Paroxysmal atrial fibrillation Status: Chronic Assessment & Plan: not a candidate for anticoagulation due to thrombocytopenia (3) CAD (coronary artery disease) Status: Chronic Assessment & Plan: Continue current therapy, routine monitoring (4) PVC (premature ventricular contraction) Status: Chronic (5) HTN (hypertension) Status: Chronic Assessment & Plan: Increase Metoprolol to 25mg BID (6) Mixed hyperlipidemia Status: Chronic Assessment & Plan: takes pravastatin, PCP manages (7) COPD (chronic obstructive pulmonary disease) Status: Chronic Assessment & Plan: Was referred by us to Primary Care Nurse Practitioner Nettie or [place] following abnormal PFTs (8) Thrombocytopenia Status: Chronic (9) Non-small cell cancer of left lung Status: Chronic Recommendation Pulm Edema:Agree with diuresis with Lasix, will wait and watch response, follow renal and lytes. AFib: not a candidate for anticoagulation due to thrombocytopenia. HTN: Increase Metoprolol to BID Thank you for allowing us to participate in this patient's care YONI YEBOAH MD 09/19/16 4164: Past Medical History Current Medications Home Meds Reported Medications Doxylamine Succinate (Unisom Sleep Aid) 25 Mg Tablet, 1 TAB PO HS Y for PRN ORDERS 09/18/16 Cyanocobalamin/Folic Acid (Vitamin X47-Tlezl Acid Tablet) 1 Each Tablet, 1 TAB PO DAILY 09/18/16 Tiotropium [place] (Spiriva) 1 Cap Inhaler, 1 CAP ORAL INH DAILY 09/18/16 Mexiletine HCl (Mexiletine HCl) 150 Mg Capsule, 150 MG PO BID 09/18/16 Metoprolol Tartrate (Metoprolol Tartrate) 25 Mg Tablet, 25 MG PO DAILY 09/18/16 Magnesium Oxide (Magnesium) 500 Mg Capsule, 500 MG PO DAILY 09/18/16 Hydroxyzine HCl (Hydroxyzine HCl) 25 Mg Tablet, 25 MG PO TID Y for ANXIETY 09/18/16 Duloxetine HCl (Duloxetine HCl) 60 Mg Capsule.dr, 60 MG PO DAILY 09/18/16 Alendronate Sodium (Alendronate Sodium) 70 Mg Tablet, 70 MG PO Q7D 09/18/16 Albuterol Sulfate (Albuterol Sulfate) 2.5 Mg/3 Ml Vial.neb, 2.5 MG AEROSOL TID Y for SHORTNESS OF AIR/WHEEZING 09/18/16 Minocycline HCl (Minocycline HCl) 100 Mg Capsule, 100 MG PO BID 05/26/16 Pravastatin Sodium (Pravastatin Sodium) 20 Mg Tablet, 20 MG PO HS 05/26/16 Furosemide (Furosemide) 40 Mg Tablet, 40 MG PO DAILY 05/26/16 Tamsulosin HCl (Tamsulosin HCl) 0.4 Mg Cap.er.24h, 0.4 MG PO HS 05/09/16 Pregabalin (Lyrica) 200 Mg Capsule, 200 MG PO TID 08/19/15 Ropinirole HCl (Ropinirole HCl) 1 Mg Tablet, 1.5 MG PO HS 08/19/15 Folic Acid (Folic Acid) 1 Mg Tablet, 1 MG PO DAILY 06/28/15 Aspirin (Aspirin) 81 Mg Tablet, 81 MG PO DAILY 09/11/10 Allergies: Coded Allergies: scopolamine (Verified Allergy, Severe, HALLUCINATIONS, 09/18/16) Bacitracin Zinc (Verified Allergy, Unknown, 09/18/16) bacitracin (Verified Allergy, Unknown, 09/18/16) codeine (Verified Allergy, Unknown, 09/18/16) neomycin sulfate (Verified Allergy, Unknown, 09/18/16) polymyxin B (Verified Allergy, Unknown, 09/18/16) simvastatin (Verified Allergy, Unknown, 09/18/16) Impression/Recommendation Recommendation After examining the patient I agree with the above assessment. I am involved in the formulation of the patient's plan of care. SHILPA RIVAS APRN Sep 18, 2016 15:27 YONI YEBOAH MD Sep 19, 2016 13:53
[2016-09-18] MEDS: SALINE NASAL SPRAY 45ml EA NOSTRIL SCH ×2 (19:05→22:21)
--- NOTE | 2016-09-18 20:59 | ECHOF ---
DATE OF PROCEDURE September 18, 2016 REFERRING PHYSICIAN Josué Carreno MD This is a two-dimensional echo with spectral Doppler, color-flow and M-mode. It was obtained in a patient with pulmonary edema. Left atrium is mildly dilated. Left ventricle end-diastolic dimension is normal. Left ventricular wall thickness is mildly increased. LV systolic function is reduced with global hypokinesia with ejection fraction of about 40%. Right atrium is normal. Aortic root dimension is normal. Mitral annulus is calcified. Mitral valve leaflets are normal with mild mitral regurgitation. Aortic valve shows mild fibrocalcific changes with no stenosis or insufficiency. Tricuspid valve shows mild tricuspid regurgitation with mild pulmonary hypertension with estimated pulmonary artery systolic pressure of 39. Pulmonary valve shows trace of pulmonary insufficiency. There is a small pericardial effusion with no echocardiographic evidence of tamponade. IMPRESSION 1. Global hypokinesia with ejection fraction of about 40%. 2. Mild left atrial dilation. 3. Mild left ventricular hypertrophy. 4. Mitral annulus calcification with mild mitral regurgitation. 5. Aortic sclerosis. 6. Mild tricuspid regurgitation with mild pulmonary hypertension with estimated pulmonary artery systolic pressure of 39. 4. Trace of pulmonary insufficiency. 5. Very small pericardial effusion with no echocardiographic evidence of tamponade. MTDD
[2016-09-18] MEDS: PREGABALIN 100 MG CAPSULE PO SCH (22:18)
[2016-09-18] MEDS: MEXILETINE 150 MG CAPSULE PO SCH (22:18)
[2016-09-18] MEDS: GUAIFENESIN DM 600mg/30mg TABLET PO SCH (22:19)
[2016-09-18] MEDS: PRAVASTATIN 20 MG TABLET PO SCH (22:19)
[2016-09-18] MEDS: ROPINIROLE 1 MG TABLET PO SCH (22:19)
[2016-09-18] MEDS: DOXYLAMINE 25 MG TABLET PO PRN (22:20)
[2016-09-18] MEDS: TAMSULOSIN 0.4 MG CAPSULE PO SCH (22:20)
[2016-09-18] MEDS: MINOCYCLINE 100 MG CAPSULE PO SCH (22:33)
[2016-09-18 23:41] VITALS: BP 144/80; PULSE 97; RESP 25; TEMP 96.8; O2SAT 94
[2016-09-19 05:14] LABS: HCT - HEMATOCRIT 38.8 % (41-53); HGB - HEMOGLOBIN 11.5 GM/DL (13.5-17.5); MEAN CORPUSCULAR HGB 27.8 UUG (26-34); MEAN CORPUSCULAR HGB CONC(MCHC 29.6 GM/DL (31-37); MEAN CORPUSCULAR VOLUME 93.7 UM3 (80-100); RED BLOOD COUNT 4.14 M/MM3 (4.50-5.90); WBC - WHITE BLOOD COUNT 15.9 T/MM3 (4.5-11.0)
[2016-09-19 05:23] LABS: ANION GAP 15 MEQ/L (5-15); BUN/CREATININE RATIO 23 RATIO (6-26); CALCIUM 8.3 MG/DL (8.4-10.2); CHLORIDE 111 MEQ/L (98-107); CO2 - CARBON DIOXIDE 18 MEQ/L (22-30); CREATININE 1.9 MG/DL (0.8-1.5); GLOMERULAR FILTRATION RATE 35; GLUCOSE 82 MG/DL (75-110); MAGNESIUM 1.5 MG/DL (1.6-2.3); POTASSIUM 3.8 MEQ/L (3.6-5); SODIUM 144 MEQ/L (134-144)
--- NOTE | 2016-09-19 05:45 | NUR ---
SUMMARY ALERT AND ORIENTED. REPORTS SOA, ON O2 AT 2L, SATS AT 94%. USES A SCOOTER FOR MOBILITY. IVL IN THE LT AC. SKIN APPEARS TO BE A SLIGHT PURPLE COLOR, PT HAS EXTENSIVE BRUISING ON ARMS AND LEGS.
[2016-09-19 06:08] LABS: ANISOCYTOSIS 1+; BAND NEUTROPHILS # 2.4 T/MM3; LYMPHOCYTES # (MANUAL) 1.1 T/MM3 (1-4.8); MONOCYTES # (MANUAL) 4.5 T/MM3 (0-0.8); NUCLEATED RED BLOOD CELLS 1; POIKILOCYTOSIS 1+; TOTAL CELLS COUNTED 100 %
[2016-09-19] MEDS: FUROSEMIDE 40 MG/4 ML INJECTION IV SCH ×2 (07:48→14:48)
[2016-09-19 08:00] VITALS: BP 119/65; PULSE 50; PULSE 96; RESP 16; TEMP 95.7; O2SAT 94
--- NOTE | 2016-09-19 08:00 | NUR ---
RECEIVED REPORT PATIENT IS ALERT AND ORIENTED. ON 2L NC THIS MORNING. URINAL AT BED SIDE. DENIES ANY CONCERNS AT THIS TIME. PATIENT APPEARS SLEEPY AT THIS TIME.
[2016-09-19] MEDS: MAGNESIUM SULFATE 1 G in D5W 100 ML IV SCH ×2 (08:32→09:59)
[2016-09-19] MEDS: FOLIC ACID 1 MG TABLET PO SCH (08:33)
[2016-09-19] MEDS: PREGABALIN 100 MG CAPSULE PO SCH ×3 (08:33→20:52)
[2016-09-19] MEDS: DULOXETINE 60 MG CAPSULE PO SCH (08:33)
[2016-09-19] MEDS: GUAIFENESIN DM 600mg/30mg TABLET PO SCH ×2 (08:34→20:52)
[2016-09-19] MEDS: MAGNESIUM OXIDE 400 MG TABLET PO SCH ×2 (08:34→20:52)
[2016-09-19] MEDS: FOLBIC TABLET PO SCH (08:34)
[2016-09-19] MEDS: MEXILETINE 150 MG CAPSULE PO SCH ×2 (08:34→20:51)
[2016-09-19] MEDS: MINOCYCLINE 100 MG CAPSULE PO SCH ×2 (08:34→20:52)
[2016-09-19] MEDS: SALINE NASAL SPRAY 45ml EA NOSTRIL SCH ×4 (08:35→20:53)
[2016-09-19] MEDS ORDERED: MAGNESIUM OXIDE 400 MG TABLET PO SCH (09:00)
[2016-09-19] MEDS ORDERED: ASPIRIN 81 MG CHEWABLE TABLET PO SCH (09:00)
[2016-09-19] MEDS: TIOTROPIUM 18mcg/cap HANDIHALER ORAL INH SCH (09:33)
[2016-09-19] MEDS ORDERED: MAGNESIUM SULF 1gm / D5W 100ml 100 ML IV SCH (09:45)
--- NOTE | 2016-09-19 10:47 | NUR ---
CM ROMAINE SCORE IS 8. Addendum: 09/19/16 at 1048 by RICHIE RODNEY SW Amended: Links added.
--- NOTE | 2016-09-19 11:10 | PNPDOC ---
Subjective Date DATE: 09/19/16 TIME: 11:06 Subjective Chucho is seen today in his room on the Medical unit. He is sitting in his bed and denies chest pain or pressure, palpitations. States his breathing is a little better today. Objective Vital Signs Vital signs Vital Signs 09/18/16 09/19/16 09/19/16 09/19/16 23:41 08:00 09:34 09:34 Temp 96.8 95.7 Pulse 97 50 82 Resp 25 16 16 B/P 144/80 119/65 Pulse Ox 94 94 O2 Delivery Nasal Cannula Nasal Cannula O2 Flow Rate 2.00 2.00 09/19/16 09:34 Pulse 80 Telemetry Rhythm: Sinus Rhythm Telemetry Ectopy: PVC Height (Feet): 5 Height (Inches): 10.00 Weight (Kilograms): 64.800 General Alert, Orientated x 3, Cooperative ENMT (Brief) mucosa moist Neck (Brief) NOT FOUND: JVD, carotid bruits Respiratory (Brief) equal bilaterally (coarse), NOT FOUND: clear all horner Cardiovascular (Brief) pedal edema (trace), regular rate, NOT FOUND: click, gallop, murmur, regular rhythm, rub Abdomen (Brief) BS normo active x4, soft Integumentary (Brief) dry, warm Psychiatric (Brief) alert, oriented Laboratory Laboratory Laboratory Tests Test 09/18/16 11:48 09/18/16 16:21 09/18/16 17:34 09/18/16 20:02 White Blood Count 14.6T/MM3 Red Blood Count 3.83M/MM3 Hemoglobin 10.7GM/DL Hematocrit 36.8% Mean Corpuscular Volume 96.1UM3 Mean Corpuscular Hemoglobin 27.9UUG Mean Corpuscular Hemoglobin Concent 29.1GM/DL RDW Standard Deviation 79.2FL Platelet Count 15T/MM3 Mean Platelet Volume UM3 Immature Granulocyte % (Auto) % Neutrophils (%) (Auto) % Lymphocytes (%) (Auto) % Monocytes (%) (Auto) % Eosinophils (%) (Auto) % Basophils (%) (Auto) % Absolute Immature Granulocyte (auto T/MM3 Absolute Neutrophils (auto) T/MM3 Absolute Lymphocytes (auto) T/MM3 Absolute Monocytes (auto) T/MM3 Absolute Eosinophils (auto) T/MM3 Absolute Basophils (auto) T/MM3 Neutrophils % (Manual) 54.0% Band Neutrophils % 9.0% Lymphocytes % (Manual) 10.0% Reactive Lymphocytes % 1.0% Monocytes % (Manual) 14.0% Metamyelocytes % 11.0% Myelocytes % 1.0% Absolute Neutrophils (Manual) 7.9T/MM3 Band Neutrophils # 1.3T/MM3 Lymphocytes # (Manual) 1.5T/MM3 Reactive Lymphocytes # 0.1T/MM3 Monocytes # (Manual) 2.0T/MM3 Metamyelocytes # 1.6T/MM3 Myelocytes # 0.1T/MM3 Poikilocytosis 2+ Anisocytosis 3+ Tear Drop Cells 1+ Ovalocytes 1+ Schistocytes 1+ Red Cell Morphology Comment Abnormal Turbidity < 20 Sodium Level 147MEQ/L Potassium Level 4.7MEQ/L Chloride Level 114MEQ/L Carbon Dioxide Level 20MEQ/L Anion Gap 13MEQ/L Blood Urea Nitrogen 46.0MG/DL Creatinine 2.0MG/DL Glomerular Filtration Rate Calc 33 BUN/Creatinine Ratio 23RATIO Glucose Level 69MG/DL Calculated Osmolality 292MOSM/KG Calcium Level 8.1MG/DL Magnesium Level 1.1MG/DL Total Bilirubin 0.90MG/DL Conjugated Bilirubin 0.00MG/DL Unconjugated Bilirubin 0.20MG/DL Icterus Index < 2 Aspartate Amino Transf (AST/SGOT) 16U/L Alanine Aminotransferase (ALT/SGPT) 18U/L Alkaline Phosphatase 56U/L Troponin I < 0.012ng/ml BL-Fpb-O-Type Natriuretic Peptide 35943OA/ML Total Protein 6.5G/DL Albumin 2.8G/DL Globulin 3.7G/DL Albumin/Globulin Ratio 0.8RATIO Chemistry Specimen Hemolysis 32 Lab Scanned Report BLOOD BANK [id number] Urine Collection Type Cleancatch-midstream Urine Color Yellow Urine Turbidity Clear Urine pH 5.5 Urine Specific [place] 1.025 Urine Protein Trace Urine Glucose (UA) Negative Urine Ketones Negative Urine Blood Trace-intact Urine Nitrite Negative Urine Bilirubin Negative Urine Urobilinogen 0.2EU/DL Urine Leukocyte Esterase Negative Urinalysis Comment Microscopic not ind. Adenovirus (PCR) Negative Bordetella parapertussis DNA (PCR) Negative Chlamydia pneumoniae DNA (PCR) Negative Coronavirus Type OC43 (PCR) Negative Coronavirus Type HKU1 (PCR) Negative Coronavirus Type 229E (PCR) Negative Coronavirus Type NL63 (PCR) Negative Human Metapneumovirus (PCR) Negative Influenza Virus Type A (PCR) Negative Influenza Virus Type B (PCR) Negative Mycoplasma pneumoniae (PCR) Negative Parainfluenza Type 1 (PCR) Negative Parainfluenza Type 2 (PCR) Negative Parainfluenza Type 3 (PCR) Negative Parainfluenza Type 4 (PCR) Negative Respiratory Syncytial Virus (PCR) Negative Enterovirus/Rhinovirus (PCR) Negative Test 09/19/16 04:25 White Blood Count 15.9T/MM3 Red Blood Count 4.14M/MM3 Hemoglobin 11.5GM/DL Hematocrit 38.8% Mean Corpuscular Volume 93.7UM3 Mean Corpuscular Hemoglobin 27.8UUG Mean Corpuscular Hemoglobin Concent 29.6GM/DL RDW Standard Deviation 78.4FL Platelet Count 28T/MM3 Mean Platelet Volume UM3 Immature Granulocyte % (Auto) % Neutrophils (%) (Auto) % Lymphocytes (%) (Auto) % Monocytes (%) (Auto) % Eosinophils (%) (Auto) % Basophils (%) (Auto) % Absolute Immature Granulocyte (auto T/MM3 Absolute Neutrophils (auto) T/MM3 Absolute Lymphocytes (auto) T/MM3 Absolute Monocytes (auto) T/MM3 Absolute Eosinophils (auto) T/MM3 Absolute Basophils (auto) T/MM3 Neutrophils % (Manual) 50.0% Band Neutrophils % 15.0% Lymphocytes % (Manual) 7.0% Monocytes % (Manual) 28.0% Absolute Neutrophils (Manual) 8.0T/MM3 Band Neutrophils # 2.4T/MM3 Lymphocytes # (Manual) 1.1T/MM3 Monocytes # (Manual) 4.5T/MM3 Nucleated Red Blood Cells 1 Poikilocytosis 1+ Anisocytosis 1+ Red Cell Morphology Comment Abnormal Turbidity < 20 Sodium Level 144MEQ/L Potassium Level 3.8MEQ/L Chloride Level 111MEQ/L Carbon Dioxide Level 18MEQ/L Anion Gap 15MEQ/L Blood Urea Nitrogen 43.0MG/DL Creatinine 1.9MG/DL Glomerular Filtration Rate Calc 35 BUN/Creatinine Ratio 23RATIO Glucose Level 82MG/DL Calculated Osmolality 287MOSM/KG Calcium Level 8.3MG/DL Magnesium Level 1.5MG/DL Icterus Index < 2 Chemistry Specimen Hemolysis < 15 Laboratory Tests 09/18/16 11:48 09/19/16 04:25 Laboratory Tests 09/18/16 11:48 09/19/16 04:25 Medications Current Medications Ceftriaxone Sodium 1 g/Sodium Chloride 100 ml @ 100 mls/hr O ONCE IV Last administered on 09/18/16 13:16; Start 09/18/16 at 13:15; Stop 09/18/16 at 14:14 ; Status DC Sodium Chloride (NS) 500 ml @ 0 mls/hr Q0M IV ; Start 09/18/16 at 13:51 Furosemide 40 mg 40 mg Q8H IV Last administered on 09/19/16 07:48; Start 09/18 at 14:30 Ceftriaxone Sodium/Sodium Chloride (Rocephin/NS) 100 ml @ 200 mls/hr Q24H IV ; Start 09/19/16 at 13:00 Albuterol Sulfate (Proventil 2.5 Mg/3 ml) 2.5 mg TID PRN AEROSOL SHORTNESS OF AIR/WHEEZING; Start 09/18/16 at 15:30 Duloxetine HCl (Cymbalta) 60 mg DAILY PO Last administered on 09/19/16 08:33; Start 09/19/16 at 09:00 Folic Acid (Folate) 1 mg DAILY PO Last administered on 09/19/16 08:33; Start 09/19/16 at 09:00 Hydroxyzine HCl (Atarax) 25 mg TID PRN PO ANXIETY; Start 09/18/16 at 15:30 Magnesium Oxide (Magox) 400 mg DAILY PO ; Start 09/19/16 at 09:00; Stop at 09:00; Status DC Mexiletine HCl (Mexitil) 150 mg BID PO Last administered on 09/19/16 08:34; Start 09/18/16 at 21:00 Minocycline HCl (Minocin) 100 mg BID PO Last administered on 09/19/16 08:34; Start 09/18/16 at 21:00 Pravastatin Sodium (Pravachol) 20 mg HS PO Last administered on 09/18/16 22:19 ; Start 09/18/16 at 22:00 Ropinirole HCl (Requip) 1.5 mg HS PO Last administered on 09/18/16 22:19; Start 09/18/16 at 22:00 Tamsulosin HCl (FLOMAX 0.4 mg) 0.4 mg HS PO Last administered on 09/18/16 22: 20; Start 09/18/16 at 22:00 Tiotropium [place] (Spiriva) 1 cap DAILY ORAL INH Last administered on 09:33; Start 09/19/16 at 09:00 Aspirin (ASA) 81 mg DAILY PO ; Start 09/19/16 at 09:00; Stop 09/19/16 at 09:00; Status DC Folic Acid/ Cyanocobalamin/ pyridoxin (Folic Acid+B6+B12) 1 tab DAILY PO Last administered on 09/19/16 08:34; Start 09/19/16 at 09:00 Pregabalin (Lyrica) 200 mg TID PO Last administered on 09/19/16 08:33; Start 09/18/16 at 21:00 Doxylamine Succinate (Unisom) 25 mg HS PRN PO Last administered on 09/18/16 22:20; Start 09/18/16 at 22:00 Miscellaneous Medication (May use PRN orders) PRN PRN MC ; Start 09/18/16 at 18:00 Magnesium Hydroxide (Mom) 30 ml DAILY PRN PO CONSTIPATION; Start 09/18/16 at 18 :00 Bisacodyl (Dulcolax) 10 mg DAILY PRN RECTALLY CONSTIPATION; Start 09/18/16 at 18:00 Al Hydroxide/Mg Hydroxide (Maalox) 30 ml Q3H PRN PO INDIGESTION; Start at 18:00 Acetaminophen (Tylenol Regular Strength) 1-2 TABS PO Q5H PRN PO DISCOMFORT; Start 09/18/16 at 18:00 Nitroglycerin (Nitrostat) 0.4 mg Q5M PRN SL CHEST PAIN; Start 09/18/16 at 18:00 Lorazepam (Ativan) 0.5 mg Q4H PRN IV ANXIETY/AIRHUNGER/AGITATION; Start at 18:00 Guaifenesin/ Dextromethorphan (Mucinex Dm 600/ 30 Mg Tablet) 1 tab Q12HR PO Last administered on 09/19/16 08:34; Start 09/18/16 at 21:00 Ondansetron HCl (Zofran) 4 mg Q6H PRN IV NAUSEA; Start 09/18/16 at 18:30 Metoprolol Tartrate (Lopressor) 25 mg BIDWM PO Last administered on 09/19/16 08:33; Start 09/18/16 at 18:43 Sodium Chloride 2 spray 2 spray QID EA NOSTRIL Last administered on 09/19/16 08:35; Start 09/18/16 at 18:45 Magnesium Sulfate/ Dextrose/Water (Magnesium Sulfate/D5W) 102 ml @ 100 mls/hr Q1H2M IV Last administered on 09/19/16 09:59; Start 09/19/16 at 07:15; Stop at 09:17; Status DC Magnesium Oxide 400 mg 400 mg BID PO Last administered on 09/19/16 08:34; Start 09/19/16 at 09:00 Magnesium Sulfate/ Dextrose (Magnesium Sulfate Ivpb) 100 ml @ 50 mls/hr Q2H IV ; Start 09/19/16 at 09:45; Stop 09/19/16 at 10:33; Status DC Potassium Chloride (Kdur) 20 meq O ONCE PO ; Start 09/19/16 at 17:30; Stop at 17:31 Assessment & Plan Problems: (1) Pulmonary edema Status: Acute Qualifiers: Chronicity: acute Qualified Codes: J81.0 - Acute pulmonary edema Assessment & Plan: Agree with diuresis with Lasix, will wait and watch response , follow renal and lytes. (2) Paroxysmal atrial fibrillation Status: Chronic Assessment & Plan: not a candidate for anticoagulation due to thrombocytopenia (3) CAD (coronary artery disease) Status: Chronic Assessment & Plan: Continue current therapy, routine monitoring (4) PVC (premature ventricular contraction) Status: Chronic (5) HTN (hypertension) Status: Chronic Assessment & Plan: Increase Metoprolol to 25mg BID (6) Mixed hyperlipidemia Status: Chronic Assessment & Plan: takes pravastatin, PCP manages (7) COPD (chronic obstructive pulmonary disease) Status: Chronic Assessment & Plan: Was referred by us to Production Expert Nettie or [place] following abnormal PFTs (8) Thrombocytopenia Status: Chronic (9) Non-small cell cancer of left lung Status: Chronic SHILPA RIVAS APRN Sep 19, 2016 11:09
--- NOTE | 2016-09-19 11:29 | NUR ---
BEVERLEY THIS WORKER CALLED PT'S [facility]. CONFIRMED THAT PT WILL BE HAVING HOME HEALTH THROUGH [facility]. AGREED AND STATED SHE USES [facility] WELL. HAD NO CONCERNS AND WAS ENCOURAGED TO CALL WITH ANY QUESTIONS/CONCERNS.
--- NOTE | 2016-09-19 11:31 | NUR ---
CM SPOKE WITH PT, INTRODUCED SELF, EXPLAINED ROLE, PROVIDED CONTACT INFO. HE SAID HE LIVES WITH HIS HERE IN [place] AND HE WILL RETURN HOME WHEN HE IS DC'D. HE SAID HE HAS HOME HEALTH THROUGH [facility] AND WANTS TO RESUME USING THEM WHEN HE IS DC'D. HE DENIED HAVING ANY DC NEEDS WHEN THIS WORKER ASKED. HE SAID HE HAS A POWER WHEELCHAIR (CURRENTLY IN HIS HOSPITAL ROOM) AND DOES NOT NEED ANYTHING FURTHER. HE GAVE PERMISSION TO CONTACT RE: DC PLANNING. Addendum: 09/19/16 at 1133 by RICHIE CARTER Amended: Links added.
--- NOTE | 2016-09-19 11:33 | NUR ---
CM PT ALSO SAID HE HAS OXYGEN THROUGH [employer]. HE USUALLY ONLY USES IT AT NIGHT.
--- NOTE | 2016-09-19 12:00 | NUR ---
SLEEPY PATIENT SLEEPS ALL MORNING. ENCOURAGED TO GET OUT OF BED TO CHAIR BUT VERBALIZES BACK PAIN.TYLENOL IS ADMINISTERED.
[2016-09-19] MEDS: CEFTRIAXONE 1 G in NORMAL SALINE 100 ML IV SCH (12:09)
[2016-09-19] MEDS: ACETAMINOPHEN 325 MG TABLET PO PRN ×2 (12:22→21:18)
[2016-09-19] MEDS ORDERED: POTASSIUM CHLORIDE 20 MEQ TABLET PO ONE ×2 (12:30→17:30)
--- NOTE | 2016-09-19 13:11 | PNPDOC ---
Subjective Date DATE: 09/19/16 TIME: 13:00 Subjective F/U: Pulmonary edema, Acute respiratory insufficiency, leukocytosis, thrombocytopenia Doing better today-breathing easier. Notes less SOA and congestion. No cough or pain with breathing. Not having chest pain/pressure. No nausea. Appetite feels okay. No ab pain. Urinating frequently due to diuretics. Feels strength stable. No f/c. Objective Vital Signs Vital signs Vital Signs Date Time Temp Pulse Resp B/P Pulse Ox O2 Delivery O2 Flow Rate FiO2 09/19/16 09:34 80 09/19/16 09:34 16 09/19/16 08:00 95.7 119/65 94 Nasal Cannula 2.00 Telemetry Rhythm: Sinus Rhythm Telemetry Ectopy: PVC Height (Feet): 5 Height (Inches): 10.00 Weight (Kilograms): 64.800 General General Appearance: Alert, Orientated x 3, Well Nourished, Well Developed, Cooperative, Looks Stated Age Eyes (Brief) Eyes: FOUND: EOMI, PERRL, NOT FOUND: scleral icterus ENMT (Brief) ENMT: FOUND: hearing intact, mucosa moist Neck (Brief) Neck: FOUND: midline, NOT FOUND: nuchal rigidity, spasm Respiratory (Brief) Respiratory: FOUND: other (No distress on O2 ), NOT FOUND: clear all horner ( Decreased, less crackles. Improving air movement. ), rales, wheezes Cardiovascular (Brief) Cardiac: NOT FOUND: pedal edema, regular rate (irregular ), regular rhythm ( Irregular) Abdomen (Brief) Abdominal: FOUND: BS normo active x4, soft, NOT FOUND: distended, tender Extremities (Brief) Extremity : Side: Bilateral Extremity: leg Extremity Finding: FOUND: other (SCD in place ), NOT FOUND: edema Musculoskeletal (Brief) Musculoskeletal: NOT FOUND: deformity, spasm Integumentary (Brief) Integumentary: FOUND: dry, warm Neurologic (Brief) Neurological: FOUND: cranial 2-12 intact, motor (Intact ) Psychiatric (Brief) Psychiatric: FOUND: alert, attentive, normal affect, oriented Laboratory Laboratory Laboratory Tests 09/18/16 11:48 09/19/16 04:25 Laboratory Tests 09/18/16 11:48 09/19/16 04:25 Assessment & Plan Problems: (1) Pulmonary edema Status: Acute Qualifiers: Chronicity: acute Qualified Codes: J81.0 - Acute pulmonary edema (2) Acute respiratory insufficiency Status: Acute (3) Leukocytosis Status: Acute (4) Thrombocytopenia Status: Chronic Assessment & Plan: Acute on chronic (5) Hypomagnesemia Status: Acute Assessment & Plan: POA (6) MDS (myelodysplastic syndrome) Status: Chronic (7) Non-small cell cancer of left lung Status: Chronic (8) COPD (chronic obstructive pulmonary disease) Status: Chronic (9) Nocturnal hypoxemia Status: Chronic Assessment & Plan: Uses O2 at night. (10) CAD (coronary artery disease) Status: Chronic (11) HTN (hypertension) Status: Chronic (12) HLD (hyperlipidemia) Status: Chronic (13) Stage III chronic kidney disease Status: Chronic (14) Anemia Status: Chronic (15) Hypothyroidism Status: Chronic (16) Peripheral neuropathy Status: Chronic (17) Restless leg syndrome Status: Chronic (18) Spinal stenosis Status: Chronic (19) Osteoarthritis Status: Chronic (20) Depression Status: Chronic Qualifiers: Depression Type: unspecified Qualified Codes: F32.9 - Major depressive disorder, single episode, unspecified (21) BPH (benign prostatic hyperplasia) Status: Chronic Qualifiers: Prostatic enlargement morphology: unspecified morphology Lower urinary tract symptom presence: presence of symptoms unspecified Qualified Codes: N40.0 - Benign prostatic hyperplasia without lower urinary tract symptoms (22) Age related osteoporosis Status: Chronic Qualifiers: Presence of current pathological fracture: without current pathological fracture Qualified Codes: M81.0 - Age-related osteoporosis without current pathological fracture Plan/Intensity of Service Continue Lasix 40mg IV q 8 hours to help diuresis - likely needing to decrease soon. Additional 2grams IV magnesium given as Mg level still low. Add oral KCl 20mEg with lunch and evening meal today due to diuretics. Wean O2 as able. Hold ASA due to significant thrombocytopenia - platelets increased to 25 post transfusion. Continue IV Rocephin - no obvious infection at this time. SCD for DVT prevention - thrombocytopenia precludes use of Lovenox/Heparin. Recheck BMP and Magnesium in am due to diuretic use. Repeat CBC in am due to MDS and CBC abnormalities. Case discussed with CM. Time spent with patient care 35 minutes. DVT Prophylaxis: SCD'S Code Status Full Code Hospital Course Summary Disclaimer The hospital course summary below is not to be considered part of the above Progress Note. Hospital Course Summary 09/18 Patient inpatient status under the care of Dr. Carreno for acute pulmonary edema with thrombocytopenia Patient does have known thrombocytopenia. Given severity of platelet count of 15. Will transfuse 1 unit of leuko-reduced irradiated platelets now. Due to acute leukocytosis will start on Rocephin. UA pending. Start Lasix 40 mg IV every 8 hours for diuresis. Use caution given elevated Pulp Plant Supervisor of 2.0. Obtain ECHO and consultation with Dr Gipson for cardiac evaluation. Monitor or cardiac telemetry Obtain magnesium, hepatic panel for laboratory completeness on admission Oxygen therapy to maintain adequate saturations, currently requiring 2 liters by nasal cannula. Did review home medications. Continue with routine meds, as well as inhalers for chronic COPD SCDs to bilateral lower extremity for DVT prophylaxis Recheck CBC and BMP tomorrow morning to follow blood counts, renal function and electrolytes Patient does request to be a full code and this order is written Will discuss further orders and plan of care with attending, Dr. Carreno. At time of discharge medical care will return to primary care provider. Dr. Ferrari 09/19 Doing better today-breathing easier. Notes less SOA and congestion. No cough or pain with breathing. Not having chest pain/pressure. No nausea. Appetite feels okay. No ab pain. Urinating frequently due to diuretics. Feels strength stable. No f/c. Continue Lasix 40mg IV q 8 hours to help diuresis - likely needing to decrease soon. Additional 2grams IV magnesium given as Mg level still low. Add oral KCl 20mEg with lunch and evening meal today due to diuretics. Wean O2 as able. Hold ASA due to significant thrombocytopenia - platelets increased to 25 after platelet transfusion yesterday. Continue IV Rocephin - no obvious infection at this time. SCD for DVT prevention - thrombocytopenia precludes use of Lovenox/Heparin. Recheck BMP and Magnesium in am due to diuretic use. Repeat CBC in am due to MDS and CBC abnormalities. JOHN CARRENO MD Sep 19, 2016 13:03
[2016-09-19 15:18] VITALS: BP 97/50; PULSE 72; RESP 18; TEMP 97.5; O2SAT 92
--- NOTE | 2016-09-19 17:21 | NUR ---
EOS PATIENT HAS SLEPT MOST OF THE DAY. PATIENT ENCOURAGED TO GET OUT TO CHAIR BUT DECLINED STATING HE WAS MORE COMFORTABLE IN BED.
[2016-09-19 20:00] VITALS: PULSE 86; RESP 16
[2016-09-19] MEDS: ROPINIROLE 1 MG TABLET PO SCH (20:51)
[2016-09-19] MEDS: PRAVASTATIN 20 MG TABLET PO SCH (20:52)
[2016-09-19] MEDS: TAMSULOSIN 0.4 MG CAPSULE PO SCH (20:53)
[2016-09-19] MEDS: DOXYLAMINE 25 MG TABLET PO PRN (21:17)
[2016-09-19 23:58] VITALS: BP 105/58; PULSE 76; RESP 18; TEMP 95.9; O2SAT 94
[2016-09-20 05:35] LABS: ANION GAP 12 MEQ/L (5-15); BUN/CREATININE RATIO 27 RATIO (6-26); CHLORIDE 110 MEQ/L (98-107); CO2 - CARBON DIOXIDE 21 MEQ/L (22-30); CREATININE 1.8 MG/DL (0.8-1.5); GLOMERULAR FILTRATION RATE 37; GLUCOSE 78 MG/DL (75-110); MAGNESIUM 1.8 MG/DL (1.6-2.3); POTASSIUM 4.1 MEQ/L (3.6-5); SODIUM 143 MEQ/L (134-144)
[2016-09-20 05:45] LABS: PROBNP 28500 PG/ML (0-175)
[2016-09-20 06:05] LABS: THYROID STIM HORMONE-TSH 2.61 MIU/L (0.47-4.68)
--- NOTE | 2016-09-20 07:40 | NUR ---
SHIFT SUMMARY PT ALERT AND ORIENTED X 3. PT SKIN COLOR GONZALES/BLUE, DUE TO LOW PLATELET'S 15. MORNING LAB PLT ARE 28. PT ON 3L OF 02 THROUGH THE NIGHT. STATES THAT IS WHAT HE WEARS AT HOME FOR THE NIGHT. REPORTS MILD PAIN TO HIS BACK. STATES THIS IS NORMAL, AT HOME HE SLEEPS IN A RECLINER. OFFER A RECLINER PT REFUSED, STATES I'M TO TRIED TO MOVE. URINAL USED TO VOID, PT REFUSED TO GO INTO BR. CALL LIGHT WITHIN REACH. BED ALARM ON.
[2016-09-20] MEDS: TIOTROPIUM 18mcg/cap HANDIHALER ORAL INH SCH (08:07)
[2016-09-20 08:50] VITALS: BP 101/55; PULSE 79; RESP 18; TEMP 95.7; O2SAT 94
[2016-09-20] MEDS: GUAIFENESIN DM 600mg/30mg TABLET PO SCH ×2 (09:43→21:30)
[2016-09-20] MEDS: FOLIC ACID 1 MG TABLET PO SCH (09:44)
[2016-09-20] MEDS: FOLBIC TABLET PO SCH (09:44)
[2016-09-20] MEDS: MEXILETINE 150 MG CAPSULE PO SCH ×2 (09:44→21:29)
[2016-09-20] MEDS: MINOCYCLINE 100 MG CAPSULE PO SCH ×2 (09:44→21:29)
[2016-09-20] MEDS: PREGABALIN 100 MG CAPSULE PO SCH ×3 (09:44→21:29)
[2016-09-20] MEDS: MAGNESIUM OXIDE 400 MG TABLET PO SCH ×2 (09:44→21:30)
[2016-09-20] MEDS: DULOXETINE 60 MG CAPSULE PO SCH (09:44)
[2016-09-20] MEDS: SALINE NASAL SPRAY 45ml EA NOSTRIL SCH ×4 (09:46→21:30)
[2016-09-20] MEDS: FUROSEMIDE 40 MG/4 ML INJECTION IV SCH ×2 (09:46→14:44)
--- NOTE | 2016-09-20 11:57 | NUR ---
Status Patient alert and oriented. Decreased oxygen to 2l/nc. Denies cough. Good appetite. Patient states a couple areas on his back are sore, no redness or open areas found. States he is feeling a lot better. Patient heart in color. Tele has frequent PVCs, trigeminy and bigeminy.
[2016-09-20 11:59] LABS: HCT - HEMATOCRIT 37.4 % (41-53); HGB - HEMOGLOBIN 11.2 GM/DL (13.5-17.5); MEAN CORPUSCULAR HGB 28.2 UUG (26-34); MEAN CORPUSCULAR HGB CONC(MCHC 29.9 GM/DL (31-37); MEAN CORPUSCULAR VOLUME 94.2 UM3 (80-100); RED BLOOD COUNT 3.97 M/MM3 (4.50-5.90); WBC - WHITE BLOOD COUNT 12.7 T/MM3 (4.5-11.0)
[2016-09-20 12:28] LABS: GIANT PLATELETS MANY; LYMPHOCYTES # (MANUAL) 1.4 T/MM3 (1-4.8); MONOCYTES # (MANUAL) 4.4 T/MM3 (0-0.8); REACTIVE LYMPHOCYTES # 0.9 T/MM3 (0-0); TOTAL CELLS COUNTED 100 %
[2016-09-20 12:29] LABS: ANISOCYTOSIS 1+; POIKILOCYTOSIS 1+
[2016-09-20] MEDS ORDERED: MILK OF MAGNESIA 30 ML SUSP PO ONE (12:30)
--- NOTE | 2016-09-20 12:30 | PNPDOC ---
Subjective Date DATE: 09/20/16 TIME: 12:21 Subjective F/U: Pulmonary edema, Acute respiratory insufficiency, leukocytosis, thrombocytopenia Doing better. Breathing feels easier. Not noting cough, congestion, or pain with breathing. Feels acapella helpful. No chest pressure or palpitations. Denies ab pain or nausea; appetite with decrease, but eating. Not had stool today. Urinating well. No f/c. Not been out of bed much. Objective Vital Signs Vital signs Vital Signs Date Time Temp Pulse Resp B/P Pulse Ox O2 Delivery O2 Flow Rate FiO2 09/20/16 08:50 95.7 79 18 101/55 94 Nasal Cannula 3.00 Telemetry Rhythm: Sinus Rhythm Telemetry Ectopy: PVC Height (Feet): 5 Height (Inches): 10.00 Weight (Kilograms): 63.500 General General Appearance: Alert, Orientated x 3, Well Nourished, Well Developed, Unable to walk, Looks Stated Age Eyes (Brief) Eyes: FOUND: EOMI, PERRL, NOT FOUND: scleral icterus ENMT (Brief) ENMT: FOUND: hearing intact, mucosa moist Neck (Brief) Neck: FOUND: midline, NOT FOUND: nuchal rigidity, spasm Respiratory (Brief) Respiratory: FOUND: other (Improving air movement. No respiratory distress ), NOT FOUND: clear all horner (Decreased. Not appreachiating crackles. ), rales, wheezes Cardiovascular (Brief) Cardiac: NOT FOUND: pedal edema, regular rate (Irregular ), regular rhythm ( irregular ) Abdomen (Brief) Abdominal: FOUND: BS normo active x4, soft, NOT FOUND: distended, tender Extremities (Brief) Extremity : Side: Bilateral Extremity: leg Extremity Finding: FOUND: other (SCD in place ), NOT FOUND: edema Musculoskeletal (Brief) Musculoskeletal: NOT FOUND: deformity, spasm Integumentary (Brief) Integumentary: FOUND: dry, warm Neurologic (Brief) Neurological: FOUND: cranial 2-12 intact, motor (Intact ) Psychiatric (Brief) Psychiatric: FOUND: alert, attentive, normal affect, oriented Laboratory Laboratory Laboratory Tests 09/19/16 04:25 09/20/16 04:03 Laboratory Tests 09/19/16 04:25 09/20/16 11:48 Assessment & Plan Problems: (1) Pulmonary edema Status: Acute Qualifiers: Chronicity: acute Qualified Codes: J81.0 - Acute pulmonary edema (2) Acute respiratory insufficiency Status: Acute (3) Leukocytosis Status: Acute (4) Thrombocytopenia Status: Chronic Assessment & Plan: Acute on chronic (5) Hypomagnesemia Status: Resolved Assessment & Plan: POA (6) MDS (myelodysplastic syndrome) Status: Chronic (7) Non-small cell cancer of left lung Status: Chronic (8) COPD (chronic obstructive pulmonary disease) Status: Chronic (9) Nocturnal hypoxemia Status: Chronic Assessment & Plan: Uses O2 at night. (10) CAD (coronary artery disease) Status: Chronic (11) HTN (hypertension) Status: Chronic (12) HLD (hyperlipidemia) Status: Chronic (13) Stage III chronic kidney disease Status: Chronic (14) Anemia Status: Chronic (15) Hypothyroidism Status: Chronic (16) Peripheral neuropathy Status: Chronic (17) Restless leg syndrome Status: Chronic (18) Spinal stenosis Status: Chronic (19) Osteoarthritis Status: Chronic (20) Depression Status: Chronic Qualifiers: Depression Type: unspecified Qualified Codes: F32.9 - Major depressive disorder, single episode, unspecified (21) BPH (benign prostatic hyperplasia) Status: Chronic Qualifiers: Prostatic enlargement morphology: unspecified morphology Lower urinary tract symptom presence: presence of symptoms unspecified Qualified Codes: N40.0 - Benign prostatic hyperplasia without lower urinary tract symptoms (22) Age related osteoporosis Status: Chronic Qualifiers: Presence of current pathological fracture: without current pathological fracture Qualified Codes: M81.0 - Age-related osteoporosis without current pathological fracture Plan/Intensity of Service Decrease Lasix to 40mg IV BID. Add oral KCl 20mEg with lunch today due to diuretics. Wean O2 as able. Encourage acapella and deep breathing. Continue IV Rocephin - no obvious infection at this time. SCD for DVT prevention - thrombocytopenia precludes use of Lovenox/Heparin. MOM 30ml x1 now as stools slow. Nursing to increase pt activities - Chair/Ambulate TID. Recheck BMP and Magnesium in am due to diuretic use. Repeat CBC in am due to MDS and CBC abnormalities. Case discussed with CM. Time spent with patient care 35 minutes. DVT Prophylaxis: SCD'S Code Status Full Code Hospital Course Summary Disclaimer The hospital course summary below is not to be considered part of the above Progress Note. Hospital Course Summary 09/18 Patient inpatient status under the care of Dr. Carreno for acute pulmonary edema with thrombocytopenia Patient does have known thrombocytopenia. Given severity of platelet count of 15. Will transfuse 1 unit of leuko-reduced irradiated platelets now. Due to acute leukocytosis will start on Rocephin. UA pending. Start Lasix 40 mg IV every 8 hours for diuresis. Use caution given elevated Staff Writer of 2.0. Obtain ECHO and consultation with Dr Gipson for cardiac evaluation. Monitor or cardiac telemetry Obtain magnesium, hepatic panel for laboratory completeness on admission Oxygen therapy to maintain adequate saturations, currently requiring 2 liters by nasal cannula. Did review home medications. Continue with routine meds, as well as inhalers for chronic COPD SCDs to bilateral lower extremity for DVT prophylaxis Recheck CBC and BMP tomorrow morning to follow blood counts, renal function and electrolytes Patient does request to be a full code and this order is written Will discuss further orders and plan of care with attending, Dr. Carreno. At time of discharge medical care will return to primary care provider. Dr. Ferrari 09/19 Doing better today-breathing easier. Notes less SOA and congestion. No cough or pain with breathing. Not having chest pain/pressure. No nausea. Appetite feels okay. No ab pain. Urinating frequently due to diuretics. Feels strength stable. No f/c. Continue Lasix 40mg IV q 8 hours to help diuresis - likely needing to decrease soon. Additional 2grams IV magnesium given as Mg level still low. Add oral KCl 20mEg with lunch and evening meal today due to diuretics. Wean O2 as able. Hold ASA due to significant thrombocytopenia - platelets increased to 25 after platelet transfusion yesterday. Continue IV Rocephin - no obvious infection at this time. SCD for DVT prevention - thrombocytopenia precludes use of Lovenox/Heparin. Recheck BMP and Magnesium in am due to diuretic use. Repeat CBC in am due to MDS and CBC abnormalities. 09/19 Doing better. Breathing feels easier. Not noting cough, congestion, or pain with breathing. Feels acapella helpful. No chest pressure or palpitations. Denies ab pain or nausea; appetite with decrease, but eating. Not had stool today. Urinating well. No f/c. Not been out of bed much. Creatinine stable. Potassium 4.1. Magnesium 1.8. Platelets 32K. Decrease Lasix to 40mg IV BID. Add oral KCl 20mEg with lunch today due to diuretics. Wean O2 as able. Encourage acapella and deep breathing. Continue IV Rocephin - no obvious infection at this time. SCD for DVT prevention - thrombocytopenia precludes use of Lovenox/Heparin. MOM 30ml x1 now as stools slow. Nursing to increase pt activities - Chair/Ambulate TID. Recheck BMP and Magnesium in am due to diuretic use. Repeat CBC in am due to MDS and CBC abnormalities. JOHN CARRENO MD Sep 20, 2016 12:24
[2016-09-20] MEDS: CEFTRIAXONE 1 G in NORMAL SALINE 100 ML IV SCH (12:32)
[2016-09-20] MEDS: POTASSIUM CHLORIDE 20 MEQ TABLET PO SCH (12:37)
[2016-09-20 15:43] VITALS: BP 92/57; PULSE 93; RESP 18; O2SAT 90
--- NOTE | 2016-09-20 16:34 | NUR ---
Status Patient weaned to RA. Up in wheelchair and strolled through the halls. Good appetite. States he feels like he is getting better.
[2016-09-20 18:35] VITALS: BP 109/63
[2016-09-20] MEDS: TAMSULOSIN 0.4 MG CAPSULE PO SCH (21:29)
[2016-09-20] MEDS: ROPINIROLE 1 MG TABLET PO SCH (21:29)
[2016-09-20] MEDS: PRAVASTATIN 20 MG TABLET PO SCH (21:30)
[2016-09-21 03:41] VITALS: BP 93/47; PULSE 93; RESP 16; O2SAT 97
--- NOTE | 2016-09-21 05:00 | NUR ---
Chart Check 24 hour chart check completed
[2016-09-21 05:36] LABS: HCT - HEMATOCRIT 37.4 % (41-53); HGB - HEMOGLOBIN 11.2 GM/DL (13.5-17.5); MEAN CORPUSCULAR HGB 28.1 UUG (26-34); MEAN CORPUSCULAR HGB CONC(MCHC 29.9 GM/DL (31-37); MEAN CORPUSCULAR VOLUME 93.7 UM3 (80-100); RED BLOOD COUNT 3.99 M/MM3 (4.50-5.90)
[2016-09-21 05:47] LABS: ANION GAP 12 MEQ/L (5-15); BUN/CREATININE RATIO 26 RATIO (6-26); CALCIUM 7.9 MG/DL (8.4-10.2); CHLORIDE 108 MEQ/L (98-107); CO2 - CARBON DIOXIDE 22 MEQ/L (22-30); CREATININE 1.8 MG/DL (0.8-1.5); GLOMERULAR FILTRATION RATE 37; GLUCOSE 74 MG/DL (75-110); MAGNESIUM 1.7 MG/DL (1.6-2.3); POTASSIUM 4.5 MEQ/L (3.6-5); SODIUM 142 MEQ/L (134-144)
--- NOTE | 2016-09-21 06:00 | NUR ---
STATUS ALERT AND ORIENTED. PATIENT IS RESTING WELL IN BED DURING NIGHT. 3L O2 VIA NC DURING SLEEP. PATIENT SKIN COLOR GONZALES/BLUE.DENIES CHEST PAIN,SOA,OR N/V. CALL LIGHT WITHIN REACH. BED ALARM ON. ENCOURAGED TO AMB. CONTINUE TO MONITOR.
[2016-09-21 06:17] LABS: ANISOCYTOSIS 1+; BAND NEUTROPHILS # 1.6 T/MM3; MONOCYTES # (MANUAL) 3.8 T/MM3 (0-0.8); NEUTROPHILS #(MANUAL)-ABSOLUTE 4.6 T/MM3 (1.8-7.7); POIKILOCYTOSIS 1+; TOTAL CELLS COUNTED 100 %
[2016-09-21 07:28] VITALS: BP 109/63; PULSE 92; RESP 16; TEMP 95.8; O2SAT 95
[2016-09-21] MEDS: SALINE NASAL SPRAY 45ml EA NOSTRIL SCH (08:09)
[2016-09-21] MEDS: GUAIFENESIN DM 600mg/30mg TABLET PO SCH (08:09)
[2016-09-21] MEDS: MAGNESIUM OXIDE 400 MG TABLET PO SCH (08:09)
[2016-09-21] MEDS: FOLIC ACID 1 MG TABLET PO SCH (08:09)
[2016-09-21] MEDS: DULOXETINE 60 MG CAPSULE PO SCH (08:09)
[2016-09-21] MEDS: MEXILETINE 150 MG CAPSULE PO SCH (08:09)
[2016-09-21] MEDS: FUROSEMIDE 40 MG/4 ML INJECTION IV SCH (08:09)
[2016-09-21] MEDS: FOLBIC TABLET PO SCH (08:09)
[2016-09-21] MEDS: MINOCYCLINE 100 MG CAPSULE PO SCH (08:09)
[2016-09-21] MEDS: PREGABALIN 100 MG CAPSULE PO SCH (08:09)
[2016-09-21] MEDS: POTASSIUM CHLORIDE 20 MEQ TABLET PO SCH (08:10)
[2016-09-21] MEDS: TIOTROPIUM 18mcg/cap HANDIHALER ORAL INH SCH (08:48)
--- NOTE | 2016-09-21 12:00 | NUR ---
Status Patient alert and oriented. Patient thinks he feels ready to go. Breathing comfortably on RA. Denies SOA.
--- NOTE | 2016-09-21 12:28 | PNPDOC ---
Subjective Date DATE: 09/21/16 TIME: 12:19 Subjective F/U: Pulmonary edema, Acute respiratory insufficiency, leukocytosis, thrombocytopenia Doing well today. Feels breathing much better-less SOA and congestion. Not needing O2. No pain with breathing. Does feel acapella very helpful. Appetite stable. No nausea or ab pain. No chest pressure or pain. Not dizzy or unsteady when up. No f/c. Feels ready to go home. Objective Vital Signs Vital signs Vital Signs Date Time Temp Pulse Resp B/P Pulse Ox O2 Delivery O2 Flow Rate FiO2 09/21/16 08:50 90 09/21/16 08:48 16 09/21/16 07:28 95.8 109/63 95 Nasal Cannula 3.00 Telemetry Rhythm: Sinus Rhythm Telemetry Ectopy: PVC Height (Feet): 5 Height (Inches): 10.00 Weight (Kilograms): 63.000 General General Appearance: Alert, Well Nourished, Well Developed, Cooperative, No Acute Distress, Looks Stated Age Eyes (Brief) Eyes: FOUND: EOMI, PERRL, NOT FOUND: scleral icterus ENMT (Brief) ENMT: FOUND: hearing intact, mucosa moist Neck (Brief) Neck: FOUND: midline, NOT FOUND: nuchal rigidity, spasm Respiratory (Brief) Respiratory: FOUND: equal bilaterally, other (No crackles or respiratory distress ), NOT FOUND: clear all horner (Decreased. ), rales, wheezes Cardiovascular (Brief) Cardiac: FOUND: regular rate, regular rhythm, NOT FOUND: pedal edema Abdomen (Brief) Abdominal: FOUND: BS normo active x4, soft, NOT FOUND: distended, tender Extremities (Brief) Extremity : Side: Bilateral Extremity: leg Extremity Finding: FOUND: other (scd ), NOT FOUND: edema Musculoskeletal (Brief) Musculoskeletal: NOT FOUND: deformity, spasm Integumentary (Brief) Integumentary: FOUND: dry, warm Neurologic (Brief) Neurological: FOUND: cranial 2-12 intact, motor (Intact ) Psychiatric (Brief) Psychiatric: FOUND: alert, attentive, normal affect, oriented Laboratory Laboratory Laboratory Tests 09/20/16 04:03 09/21/16 04:23 Laboratory Tests 09/20/16 11:48 09/21/16 04:23 Assessment & Plan Problems: (1) Pulmonary edema Status: Resolved Qualifiers: Chronicity: acute Qualified Codes: J81.0 - Acute pulmonary edema (2) Acute respiratory insufficiency Status: Resolved (3) Leukocytosis Status: Acute (4) Thrombocytopenia Status: Chronic Assessment & Plan: Acute on chronic (5) Hypomagnesemia Status: Resolved Assessment & Plan: POA (6) MDS (myelodysplastic syndrome) Status: Chronic (7) Non-small cell cancer of left lung Status: Chronic (8) COPD (chronic obstructive pulmonary disease) Status: Chronic (9) Nocturnal hypoxemia Status: Chronic Assessment & Plan: Uses O2 at night. (10) CAD (coronary artery disease) Status: Chronic (11) Paroxysmal atrial fibrillation Status: Chronic Assessment & Plan: Not candidate for anticoagulation due to thrombocytopenia. (12) HTN (hypertension) Status: Chronic (13) HLD (hyperlipidemia) Status: Chronic (14) Stage III chronic kidney disease Status: Chronic (15) Anemia Status: Chronic (16) Hypothyroidism Status: Chronic (17) Peripheral neuropathy Status: Chronic (18) Restless leg syndrome Status: Chronic (19) Spinal stenosis Status: Chronic (20) Osteoarthritis Status: Chronic (21) Depression Status: Chronic Qualifiers: Depression Type: unspecified Qualified Codes: F32.9 - Major depressive disorder, single episode, unspecified (22) BPH (benign prostatic hyperplasia) Status: Chronic Qualifiers: Prostatic enlargement morphology: unspecified morphology Lower urinary tract symptom presence: presence of symptoms unspecified Qualified Codes: N40.0 - Benign prostatic hyperplasia without lower urinary tract symptoms (23) Age related osteoporosis Status: Chronic Qualifiers: Presence of current pathological fracture: without current pathological fracture Qualified Codes: M81.0 - Age-related osteoporosis without current pathological fracture Plan/Intensity of Service Will d/c to home. Condition stable. Medically improved. Continue Lasix 40mg daily - additional 40mg at noon if weight trending up. Metoprol increased to BID by cardiology. Encourage continued use of Acapella to help respiratory status. May use Mucinex DM and nasal saline as needed. F/U with Dr Ferrari in 1 week - check BMP and Mg at that time. F/U with Dr Gipson in 2-3 weeks. See orders for details. Time spent with patient care and discharge greater than 35 minutes. DVT Prophylaxis: SCD'S Code Status Full Code Hospital Course Summary Disclaimer The hospital course summary below is not to be considered part of the above Progress Note. Hospital Course Summary 09/18 Patient inpatient status under the care of Dr. Carreno for acute pulmonary edema with thrombocytopenia Patient does have known thrombocytopenia. Given severity of platelet count of 15. Will transfuse 1 unit of leuko-reduced irradiated platelets now. Due to acute leukocytosis will start on Rocephin. UA pending. Start Lasix 40 mg IV every 8 hours for diuresis. Use caution given elevated Debt Management Counselor of 2.0. Obtain ECHO and consultation with Dr Gipson for cardiac evaluation. Monitor or cardiac telemetry Obtain magnesium, hepatic panel for laboratory completeness on admission Oxygen therapy to maintain adequate saturations, currently requiring 2 liters by nasal cannula. Did review home medications. Continue with routine meds, as well as inhalers for chronic COPD SCDs to bilateral lower extremity for DVT prophylaxis Recheck CBC and BMP tomorrow morning to follow blood counts, renal function and electrolytes Patient does request to be a full code and this order is written Will discuss further orders and plan of care with attending, Dr. Carreno. At time of discharge medical care will return to primary care provider. Dr. Frerari 09/19 Doing better today-breathing easier. Notes less SOA and congestion. No cough or pain with breathing. Not having chest pain/pressure. No nausea. Appetite feels okay. No ab pain. Urinating frequently due to diuretics. Feels strength stable. No f/c. Continue Lasix 40mg IV q 8 hours to help diuresis - likely needing to decrease soon. Additional 2grams IV magnesium given as Mg level still low. Add oral KCl 20mEg with lunch and evening meal today due to diuretics. Wean O2 as able. Hold ASA due to significant thrombocytopenia - platelets increased to 25 after platelet transfusion yesterday. Continue IV Rocephin - no obvious infection at this time. SCD for DVT prevention - thrombocytopenia precludes use of Lovenox/Heparin. Recheck BMP and Magnesium in am due to diuretic use. Repeat CBC in am due to MDS and CBC abnormalities. 09/19 Doing better. Breathing feels easier. Not noting cough, congestion, or pain with breathing. Feels acapella helpful. No chest pressure or palpitations. Denies ab pain or nausea; appetite with decrease, but eating. Not had stool today. Urinating well. No f/c. Not been out of bed much. Creatinine stable. Potassium 4.1. Magnesium 1.8. Platelets 32K. Decrease Lasix to 40mg IV BID. Add oral KCl 20mEg with lunch today due to diuretics. Wean O2 as able. Encourage acapella and deep breathing. Continue IV Rocephin - no obvious infection at this time. SCD for DVT prevention - thrombocytopenia precludes use of Lovenox/Heparin. MOM 30ml x1 now as stools slow. Nursing to increase pt activities - Chair/Ambulate TID. Recheck BMP and Magnesium in am due to diuretic use. Repeat CBC in am due to MDS and CBC abnormalities. 09/21 Doing well today. Feels breathing much better-less SOA and congestion. Not needing O2. No pain with breathing. Does feel acapella very helpful. Appetite stable. No nausea or ab pain. No chest pressure or pain. Not dizzy or unsteady when up. No f/c. Feels ready to go home. Will d/c to home. Condition stable. Medically improved. Continue Lasix 40mg daily - additional 40mg at noon if weight trending up. Metoprol increased to BID by cardiology. Encourage continued use of Acapella to help respiratory status. May use Mucinex DM and nasal saline as needed. F/U with Dr Ferrari in 1 week - check BMP and Mg at that time. F/U with Dr Gipson in 2-3 weeks. See orders for details. JOHN CARRENO MD Sep 21, 2016 12:22
[2016-09-21] MEDS ORDERED: MAGN400T6 PO (12:31)
[2016-09-21] MEDS ORDERED: METO25TA6 PO (12:31)
[2016-09-21] MEDS ORDERED: SODI45SP7 EA NOSTRIL (12:31)
[2016-09-21] MEDS ORDERED: GUAI-782 PO (12:31)
--- NOTE | 2016-09-21 12:59 | NUR ---
Prescriptions Prescriptions called into [facility].
[2016-09-21] MEDS: CEFTRIAXONE 1 G in NORMAL SALINE 100 ML IV SCH (13:00)
--- NOTE | 2016-09-21 13:56 | NUR ---
Discharge Patient discharged to home, here to transport. Patient undestands discharge instructions. Questions answered. IV dc'd, cath intact.
--- NOTE | 2016-09-21 18:37 | DSF ---
ADMITTING DIAGNOSIS Pulmonary edema. DISCHARGE DIAGNOSIS Acute pulmonary edema - improved. ASSOCIATED CONDITIONS/COMPLICATIONS 1. Acute respiratory insufficiency - resolved. 2. Acute on chronic diastolic heart failure. 3. Leukocytosis. 4. Thrombocytopenia. 5. Hypomagnesemia (present on admission) - improved. 6. Myelodysplastic syndrome. 7. Non-small cell lung cancer. 8. COPD. 9. Nocturnal hypoxemia. 10. ASCAD. 11. Paroxysmal atrial fibrillation. 12. Hypertension. 13. Hypercholesterolemia. 14. Peripheral neuropathy. 15. Anemia. 16. Restless leg syndrome. 17. Hypothyroidism. 18. Osteoarthritis. 19. Depression. 20. BPH. 21. Stage [address] CONS[address] Gipson - cardiology PROCEDURES 1. 09/18: Transfusion one platelet phoresis pack 2. Echocardiogram. CLINICAL RESUME Mr. Rankin 76-year-old gentleman who presents to [facility] emergency room secondary to shortness of breath and chest pain. He reports he has been having increasing shortness of breath over the past several weeks. Symptoms, however significantly worsened over the last 24 hours. He notes some chest tightness which is worse at night when he attempts to lay back to sleep. He generally uses three liters of oxygen by nasal cannula at night. He typically does not wear it during the day but with his breathing being more short he has been needing to use his home oxygen [id number]. He presents to emergency room for evaluation. White count was elevated 14.6. Platelets were critically low at 15,000. Sodium is 147 with creatinine 2.0. Pro BNP is elevated. Chest x-ray Does reveal moderate to severe pulmonary edema. He was started on Rocephin in the emergency room for antimicrobial coverage. Hospitalist Service was consulted and he was subsequently placed in inpatient admission status for further evaluation and treatment. For complete details of the H&P refer to that document. LABORATORY White blood count is 14.6 with hemoglobin 10.7, hematocrit 36.8, MCV 96.1 and platelets 15,000. 54% neutrophils and 9% bands are noted. Serum sodium is 147, potassium 4.7, chloride 114, CO2 20, BUN 46 with creatinine 2.0, GFR 33 and blood glucose 69. Magnesium is decreased at 1.0. Transaminases are unremarkable. Troponin I is less than 0.012. Pro BNP is elevated at 67,400. TSH is normal at 2.61. UA reveals trace protein, trace blood. Respiratory PCR panel is completely negative. HOSPITAL COURSE The patient was placed in inpatient admission status at [facility] under the care of Dr. Carreno. We continued Rocephin 1 gram IV daily for empiric antimicrobial coverage of pulmonary pathogens. He did not have danielle gladys infiltrate on chest x-ray and we did not see other obvious source. In light of his significant thrombocytopenia he was given one platelet phoresis pack which he tolerated well. Platelets did improve. Lasix was started 40 mg IV q.6h. to help motivate fluid. Echocardiogram was obtained. We did consult with Dr. Gipson (his pipe line inspector) for further cardiac evaluation. Cardiac telemetry was monitored. Magnesium was found to be quite low so magnesium was placed intravenously. We initiated SCDs to lower extremity for DVT prophylaxis; with a significant thrombocytopenia he is not a candidate for anticoagulation. Lab was monitored. Overall his hospital course was one of gradual improvement. We did see good urinary output through use of Lasix. We did trend downward, indeed by time of discharge he has he was weighing 63 kg (being 68.5 kg at time of presentation). His magnesium did normalize and had improved to 1.7 by time of discharge. Creatinine remained stable and indeed was 1.8 by time of discharge. We provided an oral potassium supplementation and did not see hypokalemia. Potassium was 4.5 at time of discharge. Additionally Acapella was initiated; the patient did find this to be quite beneficial - we encouraged to continue Acapella in the outpatient setting. His oxygenation improved and he was able to be weaned off oxygen during the day. Blood pressure and heart rate remained stable. By time of discharge he was eating, drinking and breathing well. He was ambulating at baseline and not feeling dyspneic or unsteady with position changes. His platelets had improved to 27,000. Hemoglobin was stable at 11.2 and white count was 12.0. Sodium was 142 with potassium 4.5, magnesium 1.7 and creatinine 1.8. In light of his significant improvement he voiced desire for discharge to home. Given his good improvement we felt this was reasonable. He is able to be discharged home in stable condition. Narrative disclaimed: Above narrative is a brief summary of the patient's hospitalization; for complete details of the hospital course, refer the medical record. DISCHARGE CONDITION Stable/good. DIET Low sodium. ACTIVITIES As tolerated. MEDICATIONS 1. Mucinex DM b.i.d. p.r.n. cough/congestion. 2. Magnesium oxide 4 mg b.i.d. 3. Metoprolol tartrate 25 mg b.i.d. with meals. 4. Nasal saline two sprays each nostril q.i.d. p.r.n. nasal congestion. 5. Albuterol nebulized treatments t.i.d. p.r.n. shortness of air. 6. Fosamax 70 mg weekly. 7. Aspirin 81 mg daily. 8. Vitamin B12/folic acid daily 9. Unisom 25 mg q.h.s. p.r.n. 10. Cymbalta 60 mg daily 11. Folic acid 1 mg daily. 12. Furosemide 40 mg daily - may take an extra dose in the afternoon of his weight is trending up or he has increased edema. 13. Hydroxyzine 25 mg t.i.d. p.r.n. anxiety. 14. Mexiletine 150 mg b.i.d. 15, Minocycline 100 mg b.i.d. 16. Pravastatin 20 mg q.h.s. 17. Lyrica 200 mg t.i.d. 18. Requip 1.5 mg q.h.s. 19. Flomax 0.4 mg q.h.s. 20. Spiriva one capsule inhaled daily. FOLLOWUP 1. The patient will follow with Dr. Ferrari in one week - recommend recheck BMP and magnesium at that time secondary medications. 2. The patient will follow with Dr. Gipson in two to three weeks for cardiac reevaluation. INSTRUCTIONS TO THE PATIENT Patient was instructed on his diagnosis and treatments provided. He received informed consent prior to blood product transfusion. He received CHF instructions at time of discharge. We encouraged him on sodium avoidance. Encouraged him to work on increasing strength and functional abilities. He will be adherent with medications. Watch for temperature greater than 100.4 or new or worsening chest pain or difficulty breathing. Should these or other problems occur he can be in contact with his primary provider. If symptoms become quite dire he can present to emergency room for acute evaluation. He voiced understanding with the above. Time spent with discharge greater than 35 minutes. MTDD
== END 2016-09-21 14:00 | disposition home health service (06) | DRG 189 ==
LOC: ED 11:02 → EDHOLD 13:11 → MED 14:08
PROVIDERS: ADMIT Hospitalist; ATTEND Hospitalist
PROC: 30233R1 Transfusion of Nonautologous Platelets into Peripheral Vein, Percutaneous Approach (ICD-10-PCS; principal; 2016-09-18)
DX: J81.0 Acute pulmonary edema (principal); I13.0 Hypertensive heart and chronic kidney disease with heart failure and stage 1 through stage 4 chronic kidney disease, or unspecified chronic kidney disease; C34.92 Malignant neoplasm of unspecified part of left bronchus or lung; D46.9 Myelodysplastic syndrome, unspecified; J44.9 Chronic obstructive pulmonary disease, unspecified; D69.6 Thrombocytopenia, unspecified; E83.42 Hypomagnesemia; I50.33 Acute on chronic diastolic (congestive) heart failure; N18.3 Chronic kidney disease, stage 3 (moderate); I25.10 Atherosclerotic heart disease of native coronary artery without angina pectoris; D64.9 Anemia, unspecified; G62.9 Polyneuropathy, unspecified; I48.0 Paroxysmal atrial fibrillation; E78.5 Hyperlipidemia, unspecified; E03.9 Hypothyroidism, unspecified; N40.0 Benign prostatic hyperplasia without lower urinary tract symptoms; M54.9 Dorsalgia, unspecified; M19.91 Primary osteoarthritis, unspecified site; F32.9 Major depressive disorder, single episode, unspecified; G25.81 Restless legs syndrome; M81.0 Age-related osteoporosis without current pathological fracture; Z79.82 Long term (current) use of aspirin; Z87.891 Personal history of nicotine dependence
CPT/HCPCS: 36415; 80048; 80076; 81003; 83735; 83880; 84443; 84484; 85025; 86850; 86870; 86900; 86901; 87486; 87581; 87633; 87798; 93005; 93306; 94640; 94667; 94668

== ENCOUNTER 2016-10-06 12:22 | Observation (INO) | payer MEDICARE, OTHER ==
[~2016-10-06] VITALS: Ht 177.8 cm; Wt 62.4 kg
[~2016-10-06 12:22] MED LIST changes: +ALBU2.5V7 AEROSOL; +ALEN70TA48 PO; -ALPR0.5T8 PO; -CYAN10009 PO; +CYAN1TAB46 PO; +DOXY25TA42 PO; -DULO30CA2 PO; +DULO60CA56 PO; +GUAI-782 PO; +HYDR25TA85 PO; +MAGN400T6 PO; -METO-275 PO; +METO25TA6 PO; +MEXI150C2 PO; -OXYC20TA76 PO; +SODI45SP7 EA NOSTRIL; +TIOT18CA3 ORAL INH
--- OUTSIDE RECORDS SUMMARY | 2016-10-06 12:35 | XMS REPORT | Continuity of Care Document ---
Author Author [facility] Organization [facility] Address Unknown Phone Unavailable Support Name Relationship Address Phone RALPH LEAL II, MD Caregiver [address] [place] [phone] ISAAC MELTON MD Caregiver [address] [place] [phone] ARLINE MARCANO MD Caregiver [address] [place] [phone] DONYA LÓPEZ Next Of Kin [address] [place], [place] [id number] Insurance Providers Payer Name Policy Number Subscriber Name Relationship Medicare [id number] Chucho López 18 Self Medicare Supp Wps [id number] Chucho López 18 Self Problems Medical Problems [...] F (96.8 - 99.1) Temperature (Calculated Celsius) 36.94922 degrees C (36.0 - 37.3) Pulse Rate [...] Has specimen been collected/obtained? Y Urine Specific [place] July 20, 2013 1:45pm 1.010 L - [...] 02, 2014 9:03am LAB TEST FORM REQUEST [id number] - HDL Cholesterol Direct May 02, 2014 [...] 2 0-7 Name: CHUCHO LÓPEZ Unit #: [id number] : 1940 Sex: M Loc / Svc: [facility] DOS: 08/28/14 Signed Report #: [id number] DIAGNOSTIC IMAGING REPORT TYPE OF EXAM: PELVIS [...] Encounters Encounter Location Date/Time Departed Emergency Room [facility] 09/13/14 7:57pm Registered Clinic [facility] 08/28/14 10:21am Recent Diagnosis
--- OUTSIDE RECORDS SUMMARY | 2016-10-06 12:37 | XMS REPORT | Continuity of Care Document ---
Author Author [facility] Organization [facility] Address Unknown Phone Unavailable Allergies Active Description Code Type Severity Reaction Onset Reported/Identified Relationship to Patient Clinical Status Yes No Known Food Allergies Food Allergy 08/24/2012 Yes Codeine Drug Allergy Nausea/Vomiting 08/27/2012 Yes CODEINE 41172 1 Nausea 06/03/2013 Yes codeine NKMA N/A Nausea/Vomiting 09/30/2013 Yes codeine NKMA N/A Nausea/Vomiting 09/30/2013 Yes codeine codeine Drug Allergy Unknown U 12/26/2013 Yes codeine codeine Drug Allergy Unknown U 12/26/2013 Yes NEOSPORIN 13200 1 SKIN IRRITATION 01/24/2014 Yes ZOCOR 17872 2 HEADACHE AND NAUSEA 01/24/2014 Yes scopolamine [...] Oral, q12hr, 60 tabs, 0 Refill(s ) HYDROcodone-acetaminophen([place]on 10 mg-325 mg oral tablet) 1 tabs 05/18/2015 06/19/2015 Oral 1 tabs, Oral, TID, PRN: Pain - Breakthrough, 80 tabs, 0 Refill(s) HYDROcodone-acetaminophen([place]on 10 mg-325 mg oral tablet) 1 tabs [...] 2 MG/1ML SYRINGE ML 10/30/2015 10/29/2016 IVP [id number] MORPHINE 4MG/1ML SYRINGE ML 10/30/2015 10/29/2016 IVP [id number] BISACODYL 10MG SUPPOS. SUP 10/30/2015 10/29/2016 UT* PRN LORazepam 0.5MG TABLET TAB 10/30/2015 10/29/2016 PO Q4HPRN BISACODYL 5MG TABLET TAB 10/30/2015 10/29/2016 PO PRN PHENOL 1.4% THROAT SPRAY [118ML] EA 10/30/2015 10/29/2016 PO PRN KETOROLAC 30 MG/1ML INJ DOS 10/30/2015 10/29/2016 IVP [id number] SODIUM CHLORIDE 0.9% 10ML FLUSH SYRINGE SYR [...] METOCLOPRAMIDE 10MG/2ML INJ VL 10/30/2015 10/29/2016 IVP [id number] FAMOTIDINE 20 MG TABLET TAB 10/30/2015 10/29/2016 [...] METOCLOPRAMIDE 10MG TABLET TAB 10/31/2015 10/30/2016 PO [id number] magnesium citrate(magnesium citrate) 11/05/2015 Oral Oral, 0 [...] 2 MG/1ML SYRINGE ML 01/10/2016 01/09/2017 IVP [id number] MORPHINE 4MG/1ML SYRINGE ML 01/10/2016 01/09/2017 IVP [id number] BISACODYL 10MG SUPPOS. SUP 01/10/2016 01/09/2017 UT* [...] METOCLOPRAMIDE 10MG/2ML INJ VL 01/10/2016 01/09/2017 IVP [id number] FAMOTIDINE 20 MG TABLET TAB 01/10/2016 01/09/2017 [...] METOCLOPRAMIDE 10MG TABLET TAB 01/11/2016 01/10/2017 PO [id number] MAGNESIUM SULFATE 2GM/50ML IV SOLN BAG 01/12/2016 [...] 08/01/2015 Damián Irizarry MD Final Z79.899 Other emt intermediate (current) drug therapy 10/31/2015 FANG DUNN DF [...] FANG DUNN I25.10 Atherosclerotic heart disease of [place] 10/31/2015 FANG DUNN I73.9 Peripheral vascular disease, [...] Z72.0 Tobacco use 10/31/2015 FANG DUNN Z79.01 custodial (current) use of anticoagulant 10/31/2015 FANG DUNN [...] FANG DUNN I25.10 Atherosclerotic heart disease of [place] 01/15/2016 FANG DUNN J43.9 Emphysema, unspecified 01/15/2016 FANG DUNN N28.9 Disorder of kidney and ureter, unspecifi 01/15/2016 FANG DUNN N40.0 Benign prostatic hyperplasia without low 01/15/2016 FANG DUNN R33.9 Retention of urine, unspecified 01/15/2016 FANG DUNN R40.0 Somnolence 01/15/2016 AFNG DUNN T81.32XA Disruption of internal operation (surgic [...] needle; deep (eg, vertebral body, femur) 07/24/2015 [id number] Excision of Lumbar Vertebra, Open Akil DUNN FANG 10/30/2015 [id number] Insertion of Infusion Device into Kelsy DUNN FANG 01/10/2016 [id number] [facility]tebra[facility]10[facility]2016 Results Test Result Range CBC [...] ALKALINE PHOSPHATASE TOTAL 82 IU/L 45- 117 88288-1 - 01/10/16 06:00 Leukocytes [#/volume] in Blood [...] or Plasma 0.8 mg/dl 1.8 - 2.6 76615-3 - 01/10/16 08:05 Microscopic observation [Identifier] in [...] blood 26 mmol /L 23 - 34 00488-0 - 01/11/16 04:30 Leukocytes [#/volume] in Blood [...] or Plasma 1.8 mg/dl 1.8 - 2.6 89101-4 - 01/13/16 06:15 Leukocytes [#/volume] in Blood [...] Status Pt. Type Provider Facility Loc./Unit Complaint [id number] 08/26/2012 05:00:00 2012 11:02:00 DIS Inpatient Lamin MEJIA, [facility] on [address]
--- NOTE | 2016-10-06 12:46 | ERPDOC ---
Departure Disposition Decision Date: October 06, 2016 Disposition Decision Time: 14:34 Disposition: 02 [place] [facility] [place]ression Impression Impression: Primary Impression: Hyperkalemia Additional Impression: Acute dyspnea Severity: Moderate Condition: Stable Seen By: Mid-level only Referrals: DAYDAY AVILA MD (Family) Problems/Meds/Labs Reviewed?: Yes Medications reviewed and manag: Yes Follow up care ordered?: Yes Mental Status: Alert HPI - Dyspnea General Chief Complaint: Dyspnea/Respdistress Stated Complaint: DIFF BREATHING Time Seen by Provider: 12:25 Source: patient Exam Limitations: no limitations HPI - Dyspnea Initial Comments He was [place] [facility] [place] for CHF exacerbation and dismissed on . He has an extensive history of heart and pulmonary disease. Does wear O2 at home at 3L per NC at night but sometimes wears all day as well. He states that since dismissal he has followed up with his marketing development specialist but not PCP or cardiology. He was given a new inhaler from his marketing development specialist. He denies any fever or chills or nausea/vomiting. He reports that yesterday he started having an increase in SOA and had a bout of chest pain as well. Last night he had to get up and go to the door several times to get some fresh air to catch his breath. Did not feel that it improved with use of his oxygen at home. He called his PCP office today and was advised to come to ER. Occurred At: home Onset/Timing: Gradual Duration: 12-24 hrs Severity: moderate Activities at Onset: none Associated Symptoms: chest pain (last evening), shortness of breath, DENIES: cough, diaphoresis, fever/chills, headaches, loss of appetite, malaise, nausea/ vomiting, rash, seizure, syncope, weakness Aspirin Treatment Today: unknown Hx of Similar Symptoms: No Allergies: Coded Allergies: scopolamine (Verified Allergy, Severe, HALLUCINATIONS, 10/06/16) Bacitracin Zinc (Verified Allergy, Unknown, 10/06/16) bacitracin (Verified Allergy, Unknown, 10/06/16) codeine (Verified Allergy, Unknown, 10/06/16) neomycin sulfate (Verified Allergy, Unknown, 10/06/16) polymyxin B (Verified Allergy, Unknown, 10/06/16) simvastatin (Verified Allergy, Unknown, 10/06/16) Past History Patient Surgical History Kyphoplasty Back surgery 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 Tympanostomy tubes placed 1988, 1989 TMJ meniscectomy, R 1981 Cardiac stent Colonoscopy with polpectomy 1993 colonoscopy, diverticulosis, hyperplastic polyp 03-14-2013 Manuel Transurethral treatment of bladder tumor 1991 Cystoscopy 1990 Past Medical History Metabolic: cancer, hypercholesterolemia, hypertension, hypothyroidism ENMT: ear infections Cardiac: CAD Respiratory: COPD, pneumonia Neurological: neuropathy Musculoskeletal: back pain, osteoarthritis Hematologic: anemia Psychological: depression Surgical History General: back Cardiac: cardiac cath, cardiac stent Joint: knee Vaccines Hx Influenza Vaccination: Yes (FALL 2015) Hx Pneumococcal Vaccination: No (2011) Social History # of Packs/Tins per Day: 1 Second Hand Exposure: No Substance Use Type: does not use Alcohol Intake: none Marital Status: Sexuality: female partner Housing: house Household Members: spouse Service: Yes Current Occupational Status: retired Advance Directives: Yes Full Code Review of Systems Constitutional Constitutional: DENIES: appetite decrease, chills, dizziness, fatigue, fever, weakness Eyes Vision: DENIES: blurring, double vision ENMT Ears: DENIES: drainage, pain Sinuses: DENIES: congestion, rhinorrhea Mouth/Throat: DENIES: painful swallowing, scratchy throat, sore throat Cardiovascular Cardiac: chest pain, dyspnea on exertion, DENIES: orthopnea Rhythm/Rate: DENIES: irregular beat, palpitations Vascular: DENIES: pedal edema, unilateral swelling Pulmonary Respiratory: dyspnea, DENIES: cough, sputum, tachypnea GI Upper Abdomen: DENIES: nausea, pain, vomiting Lower Abdomen: DENIES: constipation, diarrhea, pain Integumentary Skin: DENIES: rash Neurological General: DENIES: headache, numbness, tingling, weakness Physical Exam General General Nourishment: well nourished, well developed, appears stated age, no acute distress, adult General Body Habitus: well groomed Vitals and Pain First Documented Vital Signs Date Time Temp Pulse Resp B/P Pulse Ox O2 Delivery O2 Flow Rate FiO2 10/06/16 12:25 97.3 94 24 116/67 93 Room Air Weight: Kilograms: 67.000 Height (feet): 5 Height (inches): 10.00 Triage Pain Scale: RN VS reviewed by Provider: Yes Normal Exams: ENMT: No facial trauma, nasal exudates, pharyngeal erythema, or exudates are noted Neck: Full range of motion, without adenopathy, JVD, bruits or thyromegaly Chest/Resp: Clear all horner, with good airflow, and symmetry bilaterally CV: Regular rate and rhythm, without murmur or gallop, Pulses 2+ all extremities, capillary refill, <2 seconds all ext., no pedal edema noted Abdomen: Bowel sounds positive, soft, non-tender, non-distended, no hepatosplenomegaly, masses or bruits noted Lymphatic: No lymphadenopathy, or lymphedema noted Integumentary: No rashes, hives, or bruising noted Neurologic: Patient is alert, and oriented Psychiatric: Patient exhibits, appropriate attention, emotion and affect Differential Diagnoses Considering: Acute MS, Acute Respiratory Failure, CHF, COPD Exacerbation, Pneumonia Progress Results/Orders Orders Procedure Category Date Status Time Probnp LAB 10/06/16 Complete 12:38 Troponin I W LAB 10/06/16 Complete Hemolysis Index EKG EKG 10/06/16 Taken Chest, Pa & Lateral RAD 10/06/16 Resulted Cbc W/Auto LAB 10/06/16 Complete Diff-Reflex Manual Bmp - Basic Metabolic LAB 10/06/16 Complete Panel Iv Lock (Ed Only) EDM 10/06/16 Transmitted 12:38 Sodium Polystyrene PHA 10/06/16 Complete Sulfonate (Kayexelate 14:15 Place In Facility As: ADMIT 10/06/16 Transmitted Telemetry [facility] 10/06/16 In Process 14:32 Lorazepam (Ativan) PHA 10/06/16 Complete 14:45 Lab Results Laboratory Tests Test 10/06/16 12:51 White Blood Count 7.8T/MM3 Red Blood Count 3.93M/MM3 Hemoglobin 11.3GM/DL Hematocrit 38.3% Mean Corpuscular Volume 97.5UM3 Mean Corpuscular Hemoglobin 28.8UUG Mean Corpuscular Hemoglobin Concent 29.5GM/DL RDW Standard Deviation 84.5FL Platelet Count 30T/MM3 Mean Platelet Volume UM3 Immature Granulocyte % (Auto) % Neutrophils (%) (Auto) % Lymphocytes (%) (Auto) % Monocytes (%) (Auto) % Eosinophils (%) (Auto) % Basophils (%) (Auto) % Absolute Immature Granulocyte (auto T/MM3 Absolute Neutrophils (auto) T/MM3 Absolute Lymphocytes (auto) T/MM3 Absolute Monocytes (auto) T/MM3 Absolute Eosinophils (auto) T/MM3 Absolute Basophils (auto) T/MM3 Neutrophils % (Manual) 46.0% Band Neutrophils % 8.0% Lymphocytes % (Manual) 26.0% Monocytes % (Manual) 15.0% Metamyelocytes % 2.0% Myelocytes % 3.0% Absolute Neutrophils (Manual) 3.6T/MM3 Band Neutrophils # 0.6T/MM3 Lymphocytes # (Manual) 2.0T/MM3 Monocytes # (Manual) 1.2T/MM3 Metamyelocytes # 0.2T/MM3 Myelocytes # 0.2T/MM3 Poikilocytosis 1+ Anisocytosis 1+ Target Cells 1+ Schistocytes 1+ Red Cell Morphology Comment Abnormal Turbidity < 20 Sodium Level 148MEQ/L Potassium Level 5.9MEQ/L Chloride Level 113MEQ/L Carbon Dioxide Level 21MEQ/L Anion Gap 14MEQ/L Blood Urea Nitrogen 43.0MG/DL Creatinine 2.1MG/DL Glomerular Filtration Rate Calc 31 BUN/Creatinine Ratio 21RATIO Glucose Level 84MG/DL Calculated Osmolality 294MOSM/KG Calcium Level 8.4MG/DL Icterus Index < 2 Troponin I < 0.012ng/ml IG-Ojj-R-Type Natriuretic Peptide 64864SE/ML Chemistry Specimen Hemolysis < 15 Medications Current ED Medications Sodium Polystyrene Sulfonate (Kayexelate) 15 gm O ONCE PO Last administered on 10/06/16t 14:34; Start 10/06/16 at 14:15; Stop 10/06/16 at 14:16; Status DC Progress Progress WBC is 7.8 with 46% neutrophils. Na-148 and K+-5.9. Did give a dose of PO Kayexalate for the elevated K+. He does not take oral potassium. BUN is 43 and creatinine is 2.1 which is about his baseline. His chest xray does show moderate edema which is improved from his xray at admission in August. Did speak with Dr Avila and she does feel that given that he is having increased trouble at night that he may still be fluid overloaded. Did speak as well with Dr Garcia and she will accept for admission at this time. Xray Xray : Reason for Exam: dyspnea Xray: CXR PA/Lat Interpretation: Abnormal (Moderate patchy interstitial edema) NOLD,XIANG N POTATO CHIP MAKER October 06, 2016 12:46
[2016-10-06] MEDS ORDERED: FLUT1AER ORAL INH (12:54)
--- OUTSIDE RECORDS SUMMARY | 2016-10-06 13:03 | XMS REPORT | Continuity of Care Document ---
Author Author [facility] Organization [facility] Address Unknown Phone Unavailable Support Name Relationship Address Phone RALPH LEAL II, MD Caregiver [address] [place] [phone] ISAAC MELTON MD Caregiver [address] [place] [phone] ARLINE MARCANO MD Caregiver [address] [facility] [place] [phone] DONYA LÓPEZ Next Of Kin [address] [facility] [place], [place] [id number] Insurance Providers Payer Name Policy Number Subscriber Name Relationship Medicare [id number] Chucho López 18 Self Medicare Supp Wps [id number] Chucho López 20 Self Problems Medical Problems [...] F (96.8 - 99.1) Temperature (Calculated Celsius) 36.94822 degrees C (36.0 - 37.3) Pulse Rate [...] Has specimen been collected/obtained? Y Urine Specific [place] July 20, 2013 1:45pm 1.010 L - [...] 02, 2014 9:03am LAB TEST FORM REQUEST [id number] - HDL Cholesterol Direct May 02, 2014 [...] 2 0-7 Name: CHUCHO LÓPEZ Unit #: [id number] : 1940 Sex: M Loc / Svc[facility] DOS: 08/28/14 Signed Report #: [id number] DIAGNOSTIC IMAGING REPORT TYPE OF EXAM: PELVIS [...] Encounters Encounter Location Date/Time Departed Emergency Room [facility] 09/13/14 7:57pm Registered Clinic [facility] 08/28/14 10:21am Recent Diagnosis
--- OUTSIDE RECORDS SUMMARY | 2016-10-06 13:04 | XMS REPORT | Continuity of Care Document ---
Author Author [facility] Organization [facility] Address Unknown Phone Unavailable Allergies Active Description Code Type Severity Reaction Onset Reported/Identified Relationship to Patient Clinical Status Yes No Known Food Allergies Food Allergy 08/24/2012 Yes Codeine Drug Allergy Nausea/Vomiting 08/27/2012 Yes CODEINE 84020 1 Nausea 06/03/2013 Yes codeine NKMA N/A Nausea/Vomiting 09/30/2013 Yes codeine NKMA N/A Nausea/Vomiting 09/30/2013 Yes codeine codeine Drug Allergy Unknown U 12/26/2013 Yes codeine codeine Drug Allergy Unknown U 12/26/2013 Yes NEOSPORIN 67679 1 SKIN IRRITATION 01/24/2014 Yes ZOCOR 55613 2 HEADACHE AND NAUSEA 01/24/2014 Yes scopolamine [...] Oral, q12hr, 60 tabs, 0 Refill(s ) HYDROcodone-acetaminophen([place] 10 mg-325 mg oral tablet) 1 tabs 05/18/2015 06/19/2015 Oral 1 tabs, Oral, TID, PRN: Pain - Breakthrough, 80 tabs, 0 Refill(s) HYDROcodone-acetaminophen([place] 10 mg-325 mg oral tablet) 1 tabs [...] 2 MG/1ML SYRINGE ML 10/30/2015 10/29/2016 IVP [id number] MORPHINE 4MG/1ML SYRINGE ML 10/30/2015 10/29/2016 IVP [id number] BISACODYL 10MG SUPPOS. SUP 10/30/2015 10/29/2016 OH* PRN LORazepam 0.5MG TABLET TAB 10/30/2015 10/29/2016 PO Q4HPRN BISACODYL 5MG TABLET TAB 10/30/2015 10/29/2016 PO PRN PHENOL 1.4% THROAT SPRAY [118ML] EA 10/30/2015 10/29/2016 PO PRN KETOROLAC 30 MG/1ML INJ DOS 10/30/2015 10/29/2016 IVP [id number] SODIUM CHLORIDE 0.9% 10ML FLUSH SYRINGE SYR [...] METOCLOPRAMIDE 10MG/2ML INJ VL 10/30/2015 10/29/2016 IVP [id number] FAMOTIDINE 20 MG TABLET TAB 10/30/2015 10/29/2016 [...] METOCLOPRAMIDE 10MG TABLET TAB 10/31/2015 10/30/2016 PO G1MGNXOE magnesium citrate(magnesium citrate) 11/05/2015 Oral Oral, 0 [...] 2 MG/1ML SYRINGE ML 01/10/2016 01/09/2017 IVP O1HKMPQ MORPHINE 4MG/1ML SYRINGE ML 01/10/2016 01/09/2017 IVP [id number] BISACODYL 10MG SUPPOS. SUP 01/10/2016 01/09/2017 OH* PRN LORazepam 0.5MG TABLET TAB 01/10/2016 01/09/2017 [...] METOCLOPRAMIDE 10MG/2ML INJ VL 01/10/2016 01/09/2017 IVP [id number] FAMOTIDINE 20 MG TABLET TAB 01/10/2016 01/09/2017 [...] METOCLOPRAMIDE 10MG TABLET TAB 01/11/2016 01/10/2017 PO X8BTIKAS MAGNESIUM SULFATE 2GM/50ML IV SOLN BAG 01/12/2016 [...] 08/01/2015 Damián Irizarry MD Final Z79.899 Other director long term care (current) drug therapy 10/31/2015 FANG DUNN DF [...] FANG DUNN I25.10 Atherosclerotic heart disease of [place] 10/31/2015 FANG DUNN I73.9 Peripheral vascular disease, unspecified 10/31/2015 FANG DUNN I95.81 Postprocedural hypotension 10/31/2015 FANG DUNN J44.9 Chronic obstructive pulmonary disease, u 10/31/2015 FANG DUNN M81.0 Age-related osteoporosis without current 10/31/2015 FANG DUNN M86.9 Osteomyelitis, unspecified 10/31/2015 FANG UDNN N40.0 Enlarged prostate without lower urinary 10/31/2015 FANG DUNN T81.30XA Disruption of wound, unspecified, initia 10/31/2015 FANG DUNN T81.4XXA Infection following a procedure, initial 10/31/2015 FANG DUNN Z72.0 Tobacco use 10/31/2015 FANG DUNN Z79.01 assisted (current) use of anticoagulant 10/31/2015 FANG DUNN [...] FANG DUNN I25.10 Atherosclerotic heart disease of [place] 01/15/2016 FANG DUNN J43.9 Emphysema, unspecified 01/15/2016 [...] needle; deep (eg, vertebral body, femur) 07/24/2015 [id number] Excision of Lumbar Vertebra, Open Akil DUNN FANG 10/30/2015 [id number] Insertion of Infusion Device into Kelsy DUNN FANG 01/10/2016 [id number] Excision of [facility]bar Vertebra, [facility]/10[facility]2016 Results Test Result Range CBC - [...] ALKALINE PHOSPHATASE TOTAL 82 IU/L 45- 117 73360-3 - 01/10/16 06:00 Leukocytes [#/volume] in Blood [...] or Plasma 0.8 mg/dl 1.8 - 2.6 36848-3 - 01/10/16 08:05 Microscopic observation [Identifier] in [...] blood 26 mmol /L 23 - 34 31910-3 - 01/11/16 04:30 Leukocytes [#/volume] in Blood [...] or Plasma 1.8 mg/dl 1.8 - 2.6 97096-2 - 01/13/16 06:15 Leukocytes [#/volume] in Blood [...] Status Pt. Type Provider Facility Loc./Unit Complaint [id number] 08/26/2012 05:00:00 2012 11:02:00 DIS Inpatient Lamin MEJIA, [facility] on [address]
[2016-10-06 13:11] LABS: ANION GAP 14 MEQ/L (5-15); BUN/CREATININE RATIO 21 RATIO (6-26); CALCIUM 8.4 MG/DL (8.4-10.2); CHLORIDE 113 MEQ/L (98-107); CO2 - CARBON DIOXIDE 21 MEQ/L (22-30); CREATININE 2.1 MG/DL (0.8-1.5); GLOMERULAR FILTRATION RATE 31; GLUCOSE 84 MG/DL (75-110); POTASSIUM 5.9 MEQ/L (3.6-5); SODIUM 148 MEQ/L (134-144)
[2016-10-06 13:13] LABS: HCT - HEMATOCRIT 38.3 % (41-53); HGB - HEMOGLOBIN 11.3 GM/DL (13.5-17.5); MEAN CORPUSCULAR HGB 28.8 UUG (26-34); MEAN CORPUSCULAR HGB CONC(MCHC 29.5 GM/DL (31-37); MEAN CORPUSCULAR VOLUME 97.5 UM3 (80-100); RED BLOOD COUNT 3.93 M/MM3 (4.50-5.90); WBC - WHITE BLOOD COUNT 7.8 T/MM3 (4.5-11.0)
--- NOTE | 2016-10-06 13:35 | DI ---
INDICATION: ITS.REASON: dyspnea PROCEDURE: CHEST 2-VIEWS UPRIGHT (PA \T\ LAT) Encounter: Initial COMPARISON: 09/18/2016 FINDINGS: There is moderate diffuse patchy interstitial appearing opacity suggesting interstitial edema with some thickening of the major and minor fissure. No definite pleural effusion. There is cardiomegaly and probably vascular congestion. No pneumothorax. There is some asymmetric patchy somewhat nodular opacity in the left mid to upper lung that measures about 2 cm. The heart size, mediastinal contours and pulmonary vascularity are within normal limits. There is no significant skeletal abnormality. IMPRESSION: Moderate patchy interstitial edema with stable nodular opacity in left mid to upper lung field. Follow-up to resolution is recommended to exclude neoplasm. .
[2016-10-06 13:39] LABS: BAND NEUTROPHILS # 0.6 T/MM3; METAMYELOCYTES # 0.2 T/MM3; MONOCYTES # (MANUAL) 1.2 T/MM3 (0-0.8); MYELOCYTES # 0.2 T/MM3; NEUTROPHILS #(MANUAL)-ABSOLUTE 3.6 T/MM3 (1.8-7.7); TOTAL CELLS COUNTED 100 %
[2016-10-06 13:40] LABS: ANISOCYTOSIS 1+; POIKILOCYTOSIS 1+; SCHISTOCYTES 1+; TARGET CELLS 1+
[2016-10-06] MEDS ORDERED: SODIUM POLYSTYRENE SULFONATE 15 GM/60 ML BOTTLE PO ONE (14:15)
--- NOTE | 2016-10-06 14:30 | NUR ---
MORGAN LEE IN WITH PT
[2016-10-06] MEDS ORDERED: LORAZEPAM 2 MG/ML INJECTION IV ONE (14:45)
--- OUTSIDE RECORDS SUMMARY | 2016-10-06 14:49 | XMS REPORT | Continuity of Care Document ---
Author Author [facility] Organization [facility] Address Unknown Phone Unavailable Support Name Relationship Address Phone RALPH LEAL II, MD Caregiver [address] [facility] [place] [phone] ISAAC MELTON MD Caregiver [address] [place] [phone] ARLINE MARCANO MD Caregiver [address] [facility] [place] [phone] DONYA LÓPEZ Next Of Kin [address] [facility] [place], [place] [id number] Insurance Providers Payer Name Policy Number Subscriber Name Relationship Medicare [id number] Chucho López 18 Self Medicare Supp Wps [id number] Chucho López 20 Self Problems Medical Problems [...] F (96.8 - 99.1) Temperature (Calculated Celsius) 36.35629 degrees C (36.0 - 37.3) Pulse Rate [...] Has specimen been collected/obtained? Y Urine Specific [place] July 20, 2013 1:45pm 1.010 L - [...] 02, 2014 9:03am LAB TEST FORM REQUEST [id number] - HDL Cholesterol Direct May 02, 2014 [...] 2 0-7 Name: CHUCHO LÓPEZ Unit #: [id number] : 1940 Sex: M Loc / Svc: [facility] DOS: 08/28/14 Signed Report #: [id number] DIAGNOSTIC IMAGING REPORT TYPE OF EXAM: PELVIS [...] Encounters Encounter Location Date/Time Departed Emergency Room [facility] 09/13/14 7:57pm Registered Clinic [facility] 08/28/14 10:21am Recent Diagnosis
--- OUTSIDE RECORDS SUMMARY | 2016-10-06 14:51 | XMS REPORT | Continuity of Care Document ---
Author Author [facility] Organization [facility] Address Unknown Phone Unavailable Allergies Active Description Code Type Severity Reaction Onset Reported/Identified Relationship to Patient Clinical Status Yes No Known Food Allergies Food Allergy 08/24/2012 Yes Codeine Drug Allergy Nausea/Vomiting 08/27/2012 Yes CODEINE 42482 1 Nausea 06/03/2013 Yes codeine NKMA N/A Nausea/Vomiting 09/30/2013 Yes codeine NKMA N/A Nausea/Vomiting 09/30/2013 Yes codeine codeine Drug Allergy Unknown U 12/26/2013 Yes codeine codeine Drug Allergy Unknown U 12/26/2013 Yes NEOSPORIN 57768 1 SKIN IRRITATION 01/24/2014 Yes ZOCOR 89213 2 HEADACHE AND NAUSEA 01/24/2014 Yes scopolamine [...] Oral, q12hr, 60 tabs, 0 Refill(s ) HYDROcodone-acetaminophen([place] 10 mg-325 mg oral tablet) 1 tabs 05/18/2015 06/19/2015 Oral 1 tabs, Oral, TID, PRN: Pain - Breakthrough, 80 tabs, 0 Refill(s) HYDROcodone-acetaminophen([place] 10 mg-325 mg oral tablet) 1 tabs [...] 2 MG/1ML SYRINGE ML 10/30/2015 10/29/2016 IVP [id number] MORPHINE 4MG/1ML SYRINGE ML 10/30/2015 10/29/2016 IVP X1PGDRD BISACODYL 10MG SUPPOS. SUP 10/30/2015 10/29/2016 MS* PRN LORazepam 0.5MG TABLET TAB 10/30/2015 10/29/2016 PO Q4HPRN BISACODYL 5MG TABLET TAB 10/30/2015 10/29/2016 PO PRN PHENOL 1.4% THROAT SPRAY [118ML] EA 10/30/2015 10/29/2016 PO PRN KETOROLAC 30 MG/1ML INJ DOS 10/30/2015 10/29/2016 IVP [id number] SODIUM CHLORIDE 0.9% 10ML FLUSH SYRINGE SYR [...] METOCLOPRAMIDE 10MG/2ML INJ VL 10/30/2015 10/29/2016 IVP [id number] FAMOTIDINE 20 MG TABLET TAB 10/30/2015 10/29/2016 [...] METOCLOPRAMIDE 10MG TABLET TAB 10/31/2015 10/30/2016 PO K3KHTJKH magnesium citrate(magnesium citrate) 11/05/2015 Oral Oral, 0 [...] 2 MG/1ML SYRINGE ML 01/10/2016 01/09/2017 IVP G1PQZZX MORPHINE 4MG/1ML SYRINGE ML 01/10/2016 01/09/2017 IVP S8OIVAW BISACODYL 10MG SUPPOS. SUP 01/10/2016 01/09/2017 MS* PRN LORazepam 0.5MG TABLET TAB 01/10/2016 01/09/2017 [...] METOCLOPRAMIDE 10MG/2ML INJ VL 01/10/2016 01/09/2017 IVP [id number] FAMOTIDINE 20 MG TABLET TAB 01/10/2016 01/09/2017 [...] METOCLOPRAMIDE 10MG TABLET TAB 01/11/2016 01/10/2017 PO H7QIXYHA MAGNESIUM SULFATE 2GM/50ML IV SOLN BAG 01/12/2016 [...] 08/01/2015 Damián Irizarry MD Final Z79.899 Other meterman (current) drug therapy 10/31/2015 FANG DUNN DF [...] FANG DUNN I25.10 Atherosclerotic heart disease of [place] 10/31/2015 FANG DUNN I73.9 Peripheral vascular disease, [...] Z72.0 Tobacco use 10/31/2015 FANG DUNN Z79.01 shelter (current) use of anticoagulant 10/31/2015 FANG DUNN [...] FANG DUNN I25.10 Atherosclerotic heart disease of [place] 01/15/2016 FANG DUNN J43.9 Emphysema, unspecified 01/15/2016 [...] needle; deep (eg, vertebral body, femur) 07/24/2015 [id number] Excision of Lumbar Vertebra, Open Akil DUNN FANG 10/30/2015 [id number] Insertion of Infusion Device into Kelsy DUNN FANG 01/10/2016 [id number] Excision of [facility]bar Vertebra, [facility] 01/10/2016 Results Test Result Range CBC [...] ALKALINE PHOSPHATASE TOTAL 82 IU/L 45- 117 36168-1 - 01/10/16 06:00 Leukocytes [#/volume] in Blood [...] or Plasma 0.8 mg/dl 1.8 - 2.6 27452-9 - 01/10/16 08:05 Microscopic observation [Identifier] in [...] blood 26 mmol /L 23 - 34 89436-6 - 01/11/16 04:30 Leukocytes [#/volume] in Blood [...] or Plasma 1.8 mg/dl 1.8 - 2.6 41208-9 - 01/13/16 06:15 Leukocytes [#/volume] in Blood [...] Status Pt. Type Provider Facility Loc./Unit Complaint [id number] 08/26/2012 05:00:00 2012 11:02:00 DIS Inpatient Lamin MEJIA, [facility] on [address]
--- NOTE | 2016-10-06 15:01 | NUR ---
ADMIT ROOM 140 ASSIGNED TO PT
--- NOTE | 2016-10-06 15:08 | NUR ---
REPORT THIS NURSE RECEIVED REPORT FROM DU RN AT THIS TIME, NO CONCERNS AT THIS TIME.
--- NOTE | 2016-10-06 15:08 | NUR ---
REPORT GIVEN TO NIKHIL BERTRAND ON MEDICAL
--- NOTE | 2016-10-06 15:23 | NUR ---
ADMIT PT ADMITTED VIA CART TO ROOM 140 AT THIS TIME, ACCOMPANIED BY . PT ALERT AND ORIENTED X3. PT ON RA, DENIES SOA. WILL CONTINUE TO MONITOR.
[2016-10-06 15:27] VITALS: BP 138/79; PULSE 101; RESP 18; O2SAT 95
[2016-10-06 15:30] VITALS: PULSE 103; RESP 22; Ht 177.8 cm; Wt 62.4 kg
[2016-10-06] MEDS ORDERED: ALBUTEROL INH.SOLN. 2.5mg/3ml (0.083%) Neb. AEROSOL PRN (16:30)
[2016-10-06] MEDS ORDERED: DOXYLAMINE 25 MG TABLET PO PRN (16:30)
[2016-10-06] MEDS ORDERED: SALINE NASAL SPRAY 45ml EA NOSTRIL PRN (16:30)
[2016-10-06] MEDS ORDERED: GUAIFENESIN DM 600mg/30mg TABLET PO PRN (16:30)
[2016-10-06 16:34] VITALS: PULSE 103; RESP 22; O2SAT 95
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
[2016-10-06] MEDS: ALBUTEROL/IPRATROPIUM INHAL. 2.5mg-0.5mg/3ml Neb. AEROSOL SCH ×2 (17:16→20:55)
[2016-10-06 17:38] LABS: ALBUMIN 3.3 G/DL (3.5-5.0); ALBUMIN/GLOBULIN RATIO 0.8 RATIO (1.1-2.2); ALKALINE PHOSPHATASE 75 U/L (38-126); ALT (SGPT) 23 U/L (21-72); AST (SGOT) 20 U/L (17-59); TOTAL PROTEIN 7.4 G/DL (6.3-8.2)
[2016-10-06 17:50] LABS: MAGNESIUM 1.5 MG/DL (1.6-2.3); PHOSPHORUS 5.3 MG/DL (2.5-4.5); URIC ACID 6.8 MG/DL (3.5-8.5)
[2016-10-06] MEDS ORDERED: BUMETANIDE 2.5mg INJECTION IV ONE (18:00)
[2016-10-06] MEDS: --POM--METOPROLOL TARTRATE 25mg TABLET PO SCH (18:19)
--- NOTE | 2016-10-06 18:43 | NUR ---
SHIFT SUMMARY PT ALERT AND ORIENTED X3. PT ON 1L/NC AT THIS TIME FOR COMFORT, PT REPORTS SOA WITH EXERTION. 02 SAT RANGES 93-99% ON 1L/NC AND PT IS TACHYPNEIC. PT RATES PACK PAIN 6/10 AT THIS TIME, REQUESTS REPOSITIONING FREQUENTLY. UP WITH ASSIST X1, GAIT BELT, WALKER. PT USES MOTORIZED SCOOTER AT HOME, SCOOTER CURRENTLY PLACED IN BATHROOM. IVL RIGHT FOREARM PATENT. ADEQUATE URINE OUTPUT. LEGS ELEVATED AT THIS TIME. PT ABLE TO MAKE NEEDS KNOWN. BED ALARM ON, CALL LIGHT WITHIN REACH.
[2016-10-06] MEDS: MAGNESIUM SULFATE 1 G in D5W 100 ML IV SCH ×3 (18:50→20:03)
[2016-10-06] MEDS ORDERED: NORMAL SALINE 500 ML IV PRN (19:00)
[2016-10-06 20:00] VITALS: PULSE 82; RESP 22
[2016-10-06 20:45] LABS: ANION GAP 13 MEQ/L (5-15); BUN/CREATININE RATIO 19 RATIO (6-26); CHLORIDE 110 MEQ/L (98-107); CO2 - CARBON DIOXIDE 22 MEQ/L (22-30); CREATININE 2.1 MG/DL (0.8-1.5); GLOMERULAR FILTRATION RATE 31; GLUCOSE 174 MG/DL (75-110); POTASSIUM 4.6 MEQ/L (3.6-5); SODIUM 145 MEQ/L (134-144)
[2016-10-06 20:50] VITALS: O2SAT 95
[2016-10-06] MEDS ORDERED: MEXILETINE 150 MG PO SCH (21:00)
[2016-10-06] MEDS: MAGNESIUM OXIDE 400 MG PO SCH (21:58)
[2016-10-06] MEDS: PREGABALIN 200 MG PO SCH (21:58)
[2016-10-06] MEDS ORDERED: --POM--TAMSULOSIN 0.4 MG CAPSULE PO SCH (22:00)
[2016-10-06] MEDS ORDERED: ROPINIROLE 1 MG PO SCH (22:00)
[2016-10-06] MEDS ORDERED: --POM--PRAVASTATIN 20 MG TABLET PO SCH (22:00)
[2016-10-06] MEDS: MINOCYCLINE 100 MG CAPSULE PO SCH (22:01)
[2016-10-06] MEDS ORDERED: OXYCODONE/APAP 5mg/325mg TABLET PO PRN (23:15)
[2016-10-06] MEDS ORDERED: MORPHINE SULFATE 2 MG SYRINGE IV PRN (23:15)
[2016-10-07 00:08] VITALS: BP 118/60; PULSE 84; RESP 16; TEMP 97; O2SAT 92
[2016-10-07 01:07] LABS: HCT - HEMATOCRIT 36.8 % (41-53); HGB - HEMOGLOBIN 10.8 GM/DL (13.5-17.5); MEAN CORPUSCULAR HGB 28.3 UUG (26-34); MEAN CORPUSCULAR HGB CONC(MCHC 29.3 GM/DL (31-37); MEAN CORPUSCULAR VOLUME 96.3 UM3 (80-100); RED BLOOD COUNT 3.82 M/MM3 (4.50-5.90); WBC - WHITE BLOOD COUNT 8.7 T/MM3 (4.5-11.0)
[2016-10-07 01:40] LABS: ANION GAP 14 MEQ/L (5-15); BUN/CREATININE RATIO 19 RATIO (6-26); CALCIUM 8.2 MG/DL (8.4-10.2); CHLORIDE 110 MEQ/L (98-107); CO2 - CARBON DIOXIDE 20 MEQ/L (22-30); CREATININE 2.1 MG/DL (0.8-1.5); GLOMERULAR FILTRATION RATE 31; GLUCOSE 104 MG/DL (75-110); POTASSIUM 4.9 MEQ/L (3.6-5); SODIUM 144 MEQ/L (134-144)
[2016-10-07 02:36] LABS: ANISOCYTOSIS 1+; EOSINOPHILS # (MANUAL) 0.1 T/MM3 (0-0.5); LYMPHOCYTES # (MANUAL) 2.3 T/MM3 (1-4.8); MONOCYTES # (MANUAL) 2.3 T/MM3 (0-0.8); POIKILOCYTOSIS 1+; TOTAL CELLS COUNTED 100 %
--- NOTE | 2016-10-07 02:38 | NUR ---
STATUS A/O X 3. PT UP TO BSC WITH 2 ASSIST. PT HAS DIFFICULT TIME STANDING UP. STATES HIS BACK IS HURTING. PT ASKED FOR PAIN MEDICATION FOR HIS PAIN 12/08. TIGER TEXT DR STOCK WITH PT'S REQUEST FOR PAIN MEDICATION. NEW ORDERS PLACED PER DR STOCK. PERCOCET 5 MG GIVEN AT 2315. REPORTED LABS TO DR STOCK D-DIMER 438, Plt 23, Hgb 10.8. NO NEW ORDERS WERE GIVEN.
[2016-10-07 06:58] VITALS: O2SAT 95
[2016-10-07] MEDS: ALBUTEROL/IPRATROPIUM INHAL. 2.5mg-0.5mg/3ml Neb. AEROSOL SCH ×2 (06:58→11:08)
[2016-10-07 07:43] VITALS: BP 118/60; PULSE 63; RESP 16; TEMP 96; O2SAT 96
[2016-10-07 07:55] VITALS: BP 118/60
[2016-10-07 08:00] VITALS: PULSE 82; RESP 22
[2016-10-07] MEDS ORDERED: HANDIHALER ORAL INH SCH (09:00)
[2016-10-07] MEDS ORDERED: FOLBIC TABLET PO SCH (09:00)
[2016-10-07] MEDS ORDERED: --POM--ASPIRIN *EC* 81mg TABLET PO SCH (09:00)
[2016-10-07] MEDS ORDERED: TIOTROPIUM ORAL INH SCH (09:00)
[2016-10-07] MEDS ORDERED: MEXILETINE 150 MG PO SCH (09:00)
[2016-10-07] MEDS ORDERED: DULOXETINE 60 MG PO SCH (09:00)
[2016-10-07] MEDS ORDERED: BUMETANIDE 2.5mg INJECTION IV SCH ×2 (09:00)
[2016-10-07] MEDS ORDERED: --POM--FOLIC ACID 1 MG TABLET PO SCH (09:00)
--- NOTE | 2016-10-07 09:05 | CONSPD ---
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 His shortness of breath has been worse with exertion. He also has noticed knife-like midsternal chest pain, which is a new symptom. He also notes increased pain, swelling, and redness to his right foot. He complains of chronic back pain as well. He has felt weak in general, but denies any dizziness or lightheadedness. He denies any paresthesias. No fevers or chills. Denies cough or congestion. He denies change in appetite recently, abdominal pain, n/v/d or constipation. He denies difficulty urinating. He has multiple bruises and abrasions to his legs and arms - they are on his legs from bumping his legs while in his scooter. He was recently admitted at [facility] 09/18/16-09/21/16 for acute on chronic heart failure; he also received Rocephin and was transfused platelets. An echocardiogram on showed an EF of 40%, mild pulmonary hypertension and mild tricuspid regurgitation. He has a PMH significant for MDS, Non-small cell lung cancer, COPD, CAD, PAF, HTN, HLD, Anemia, CKD stage III, hypothyroidism, and depression. Labs in the ER showed anemia with a hemoglobin of 11.3, and chronic thrombocytopenia with platelet count of 30,000. He had a percent bands. On chemistries, sodium was elevated at 148, potassium was elevated at 5.9, and his renal functions were up at baseline with a BUN of 43 and creatinine of 2.1. BNP was elevated at 24,900, which is less than what he was on 09/20/16 (28,500). In the ER, he was given Kayexalate for hyperkalemia and Ativan 0.5 mg. The patient was admitted to observation status for treatment of his hyperkalemia, hypernatremia, elevated renal functions, acute dyspnea, and chest pain. Past Medical History Past Medical History Metabolic: cancer, hypercholesterolemia, hypertension, hypothyroidism ENMT: ear infections Cardiac: CAD Respiratory: COPD, pneumonia Neurological: neuropathy Musculoskeletal: back pain, osteoarthritis Hematologic: anemia Psychological: depression Surgical History General: back Cardiac: cardiac cath, cardiac stent Joint: knee Current Medications Home Meds Active Scripts Bumetanide (Bumetanide) 1 Mg Tablet, 1 TAB PO DAILY, #30 TAB 0 Refills Prov:GIULIANA GARCIA MD 10/07/16 Magnesium Oxide (Magnesium Oxide) 400 Mg Tablet, 800 MG PO BID for Low magnesium , #120 TAB Prov:GIULIANA GARCIA MD 10/07/16 Mexiletine HCl (Mexiletine HCl) 150 Mg Capsule, 150 MG PO TID, #90 Prov:GIULIANA GARCIA MD 10/07/16 Hydroxyzine HCl (Hydroxyzine HCl) 25 Mg Tablet, 25 MG PO TID Y for ANXIETY, #30 Prov:GIULIANA GARCIA MD 10/07/16 Sodium Chloride (Deep Sea) 450 Newberg/45 Ml Newberg, 2 SPRAY EA NOSTRIL QID Y for NASAL CONGESTION, #1 BOTTLE Prov:JOHN PITTS MD 09/21/16 Guaifenesin/Dextromethorphan (Mucinex Dm ER 600-30 mg Tablet) 1 Each Tab.er.12h , 1 TAB PO Q12HR Y for COUGH/CONGESTION, #20 TAB Prov:JOHN PITTS MD 09/21/16 Metoprolol Tartrate (Metoprolol Tartrate) 25 Mg Tablet, 25 MG PO BIDWM for HTN/ Afib, #60 TAB Prov:JOHN PITTS MD 09/21/16 Reported Medications Fluticasone/Vilanterol (Breo Ellipta 100-25 Mcg INH) Unknown Strength Blst.w.dev , ORAL INH DAILY 10/06/16 Doxylamine Succinate (Unisom Sleep Aid) 25 Mg Tablet, 1 TAB PO HS Y for PRN ORDERS 09/18/16 Cyanocobalamin/Folic Acid (Vitamin H15-Mhjlz Acid Tablet) 1 Each Tablet, 1 TAB PO DAILY 09/18/16 Tiotropium Nunda (Spiriva) 1 Cap Inhaler, 1 CAP ORAL INH DAILY 09/18/16 Alendronate Sodium (Alendronate Sodium) 70 Mg Tablet, 70 MG PO Q7D 09/18/16 Albuterol Sulfate (Albuterol Sulfate) 2.5 Mg/3 Ml Vial.neb, 2.5 MG AEROSOL TID Y for SHORTNESS OF AIR/WHEEZING 09/18/16 Minocycline HCl (Minocycline HCl) 100 Mg Capsule, 100 MG PO BID 05/26/16 Pravastatin Sodium (Pravastatin Sodium) 20 Mg Tablet, 20 MG PO HS 05/26/16 Tamsulosin HCl (Tamsulosin HCl) 0.4 Mg Cap.er.24h, 0.4 MG PO HS 05/09/16 Pregabalin (Lyrica) 200 Mg Capsule, 200 MG PO TID 08/19/15 Ropinirole HCl (Ropinirole HCl) 1 Mg Tablet, 1.5 MG PO HS 08/19/15 Aspirin (Aspirin) 81 Mg Tablet, 81 MG PO DAILY 09/11/10 Discontinued Reported Medications Duloxetine HCl (Duloxetine HCl) 60 Mg Capsule.dr, 60 MG PO DAILY 09/18/16 Furosemide (Furosemide) 40 Mg Tablet, 40 MG PO DAILY 05/26/16 Folic Acid (Folic Acid) 1 Mg Tablet, 1 MG PO DAILY 06/28/15 Allergies: Coded Allergies: scopolamine (Verified Allergy, Severe, HALLUCINATIONS, 10/06/16) Bacitracin Zinc (Verified Allergy, Unknown, 10/06/16) bacitracin (Verified Allergy, Unknown, 10/06/16) codeine (Verified Allergy, Unknown, 10/06/16) neomycin sulfate (Verified Allergy, Unknown, 10/06/16) polymyxin B (Verified Allergy, Unknown, 10/06/16) simvastatin (Verified Allergy, Unknown, 10/06/16) Vaccines Apr 2016 05/11/16 PCV13 201102/26/16 Social History Smoking Status: Former smoker # of Packs/Tins per Day: 1 Second Hand Exposure: No Substance Use Type: does not use Alcohol Intake: none Marital Status: Sexuality: female partner Housing: house Household Members: spouse Service: Yes Current Occupational Status: retired Advance Directives: Yes DPOA for Healthcare Only ([place]), Yes Full Code Review of Systems Constitutional: DENIES: chills, dizziness, fever, weakness Eyes Vision: DENIES: blurring ENMT Hearing: DENIES: tinnitus Balance: DENIES: vertigo Mouth/Throat: DENIES: sore throat Cardiovascular chest pain (yesterday), dyspnea on exertion Rhythm/Rate: DENIES: irregular beat, palpitations Vascular: DENIES: pedal edema Pulmonary Respiratory: dyspnea, DENIES: cough, sputum GI Upper Abdomen: DENIES: nausea, vomiting Lower Abdomen: DENIES: diarrhea General: DENIES: dysuria Neurological General: weakness, DENIES: headache, numbness, seizures, syncope Hematologic/Lymphatic easy bruising All Other Systems All Other Systems: Reviewed (remainder of 10-point ROS Neg.) Physical Exam General General Nourishment: well nourished, apparent age Vital Signs Vital Signs Date Time Temp Pulse Resp B/P Pulse Ox O2 Delivery O2 Flow Rate FiO2 10/07/16 07:43 96.0 63 16 118/60 96 Nasal Cannula 1.00 Height (Feet): 5 Height (Inches): 10.00 Telemetry Ectopy: PVC, [place] Neck Brief: NOT FOUND: JVD, carotid bruits Respiratory Brief: FOUND: clear all horner, equal bilaterally, NOT FOUND: rales , wheezes Cardiovascular (brief) Cardiac Brief: NOT FOUND: click, gallop, murmur, pedal edema, regular rate, regular rhythm Abdomen (brief) Abdominal Brief: FOUND: BS normo active x4, soft, NOT FOUND: tender Neurologic RN Documented GCS Eye Opening: (4)Spontaneous Verbal: (5)Oriented Motor: (6)Obeys Commands Total: Psychiatric (brief) FOUND: alert, attentive, oriented Laboratory Laboratory Tests Test 10/06/16 12:51 10/06/16 20:17 10/07/16 00:30 White Blood Count 7.8T/MM3 8.7T/MM3 Red Blood Count 3.93M/MM3 3.82M/MM3 Hemoglobin 11.3GM/DL 10.8GM/DL Hematocrit 38.3% 36.8% Mean Corpuscular Volume 97.5UM3 96.3UM3 Mean Corpuscular Hemoglobin 28.8UUG 28.3UUG Mean Corpuscular Hemoglobin Concent 29.5GM/DL 29.3GM/DL RDW Standard Deviation 84.5FL 81.3FL Platelet Count 30T/MM3 23T/MM3 Mean Platelet Volume UM3 UM3 Immature Granulocyte % (Auto) % % Neutrophils (%) (Auto) % % Lymphocytes (%) (Auto) % % Monocytes (%) (Auto) % % Eosinophils (%) (Auto) % % Basophils (%) (Auto) % % Absolute Immature Granulocyte (auto T/MM3 T/MM3 Absolute Neutrophils (auto) T/MM3 T/MM3 Absolute Lymphocytes (auto) T/MM3 T/MM3 Absolute Monocytes (auto) T/MM3 T/MM3 Absolute Eosinophils (auto) T/MM3 T/MM3 Absolute Basophils (auto) T/MM3 T/MM3 Neutrophils % (Manual) 46.0% 46.0% Band Neutrophils % 8.0% Lymphocytes % (Manual) 26.0% 27.0% Monocytes % (Manual) 15.0% 26.0% Metamyelocytes % 2.0% Myelocytes % 3.0% Absolute Neutrophils (Manual) 3.6T/MM3 4.0T/MM3 Band Neutrophils # 0.6T/MM3 Lymphocytes # (Manual) 2.0T/MM3 2.3T/MM3 Monocytes # (Manual) 1.2T/MM3 2.3T/MM3 Metamyelocytes # 0.2T/MM3 Myelocytes # 0.2T/MM3 Poikilocytosis 1+ 1+ Anisocytosis 1+ 1+ Target Cells 1+ Schistocytes 1+ Red Cell Morphology Comment Abnormal Abnormal Turbidity 28 < 20 < 20 Sodium Level 148MEQ/L 145MEQ/L 144MEQ/L Potassium Level 5.9MEQ/L 4.6MEQ/L 4.9MEQ/L Chloride Level 113MEQ/L 110MEQ/L 110MEQ/L Carbon Dioxide Level 21MEQ/L 22MEQ/L 20MEQ/L Anion Gap 14MEQ/L 13MEQ/L 14MEQ/L Blood Urea Nitrogen 43.0MG/DL 40.0MG/DL 40.0MG/DL Creatinine 2.1MG/DL 2.1MG/DL 2.1MG/DL Glomerular Filtration Rate Calc 31 31 31 BUN/Creatinine Ratio 21RATIO 19RATIO 19RATIO Glucose Level 84MG/DL 174MG/DL 104MG/DL Calculated Osmolality 294MOSM/KG 293MOSM/KG 287MOSM/KG Uric Acid 6.8MG/DL Calcium Level 8.4MG/DL 8.0MG/DL 8.2MG/DL Phosphorus Level 5.3MG/DL Magnesium Level 1.5MG/DL 2.0MG/DL Total Bilirubin 0.70MG/DL Conjugated Bilirubin 0.00MG/DL Unconjugated Bilirubin 0.20MG/DL Icterus Index < 2 < 2 < 2 Aspartate Amino Transf (AST/SGOT) 20U/L Alanine Aminotransferase (ALT/SGPT) 23U/L Alkaline Phosphatase 75U/L Troponin I < 0.012ng/ml < 0.012ng/ml < 0.012ng/ml MS-Hoo-D-Type Natriuretic Peptide 39945LH/ML Total Protein 7.4G/DL Albumin 3.3G/DL Globulin 4.1G/DL Albumin/Globulin Ratio 0.8RATIO Chemistry Specimen Hemolysis < 15 < 15 < 15 D-Dimer 438NG/ML Eosinophils % (Manual) 1.0% Eosinophils # (Manual) 0.1T/MM3 Laboratory Tests Test 10/06/16 12:51 10/06/16 20:17 10/07/16 00:30 White Blood Count 7.8T/MM3 8.7T/MM3 Red Blood Count 3.93M/MM3 3.82M/MM3 Hemoglobin 11.3GM/DL 10.8GM/DL Hematocrit 38.3% 36.8% Mean Corpuscular Volume 97.5UM3 96.3UM3 Mean Corpuscular Hemoglobin 28.8UUG 28.3UUG Mean Corpuscular Hemoglobin Concent 29.5GM/DL 29.3GM/DL RDW Standard Deviation 84.5FL 81.3FL Platelet Count 30T/MM3 23T/MM3 Mean Platelet Volume UM3 UM3 Immature Granulocyte % (Auto) % % Neutrophils (%) (Auto) % % Lymphocytes (%) (Auto) % % Monocytes (%) (Auto) % % Eosinophils (%) (Auto) % % Basophils (%) (Auto) % % Absolute Immature Granulocyte (auto T/MM3 T/MM3 Absolute Neutrophils (auto) T/MM3 T/MM3 Absolute Lymphocytes (auto) T/MM3 T/MM3 Absolute Monocytes (auto) T/MM3 T/MM3 Absolute Eosinophils (auto) T/MM3 T/MM3 Absolute Basophils (auto) T/MM3 T/MM3 Neutrophils % (Manual) 46.0% 46.0% Band Neutrophils % 8.0% Lymphocytes % (Manual) 26.0% 27.0% Monocytes % (Manual) 15.0% 26.0% Metamyelocytes % 2.0% Myelocytes % 3.0% Absolute Neutrophils (Manual) 3.6T/MM3 4.0T/MM3 Band Neutrophils # 0.6T/MM3 Lymphocytes # (Manual) 2.0T/MM3 2.3T/MM3 Monocytes # (Manual) 1.2T/MM3 2.3T/MM3 Metamyelocytes # 0.2T/MM3 Myelocytes # 0.2T/MM3 Poikilocytosis 1+ 1+ Anisocytosis 1+ 1+ Target Cells 1+ Schistocytes 1+ Red Cell Morphology Comment Abnormal Abnormal Turbidity 28 < 20 < 20 Sodium Level 148MEQ/L 145MEQ/L 144MEQ/L Potassium Level 5.9MEQ/L 4.6MEQ/L 4.9MEQ/L Chloride Level 113MEQ/L 110MEQ/L 110MEQ/L Carbon Dioxide Level 21MEQ/L 22MEQ/L 20MEQ/L Anion Gap 14MEQ/L 13MEQ/L 14MEQ/L Blood Urea Nitrogen 43.0MG/DL 40.0MG/DL 40.0MG/DL Creatinine 2.1MG/DL 2.1MG/DL 2.1MG/DL Glomerular Filtration Rate Calc 31 31 31 BUN/Creatinine Ratio 21RATIO 19RATIO 19RATIO Glucose Level 84MG/DL 174MG/DL 104MG/DL Calculated Osmolality 294MOSM/KG 293MOSM/KG 287MOSM/KG Uric Acid 6.8MG/DL Calcium Level 8.4MG/DL 8.0MG/DL 8.2MG/DL Phosphorus Level 5.3MG/DL Magnesium Level 1.5MG/DL 2.0MG/DL Total Bilirubin 0.70MG/DL Conjugated Bilirubin 0.00MG/DL Unconjugated Bilirubin 0.20MG/DL Icterus Index < 2 < 2 < 2 Aspartate Amino Transf (AST/SGOT) 20U/L Alanine Aminotransferase (ALT/SGPT) 23U/L Alkaline Phosphatase 75U/L Troponin I < 0.012ng/ml < 0.012ng/ml < 0.012ng/ml SN-Tdq-M-Type Natriuretic Peptide 46022NW/ML Total Protein 7.4G/DL Albumin 3.3G/DL Globulin 4.1G/DL Albumin/Globulin Ratio 0.8RATIO Chemistry Specimen Hemolysis < 15 < 15 < 15 D-Dimer 438NG/ML Eosinophils % (Manual) 1.0% Eosinophils # (Manual) 0.1T/MM3 EKG SR, bigeminal PVCs Radiology DATE OF EXAM: 10/06/16 ORDERING DOCTOR: XIANG MORFIN APRN TYPE OF EXAM: CHEST, PA & LATERAL REASON FOR EXAM: dyspnea INDICATION: ITS.REASON: dyspnea PROCEDURE: CHEST 2-VIEWS UPRIGHT (PA \T\ LAT) Encounter: Initial COMPARISON: 09/18/2016 FINDINGS: There is moderate diffuse patchy interstitial appearing opacity suggesting interstitial edema with some thickening of the major and minor fissure. No definite pleural effusion. There is cardiomegaly and probably vascular congestion. No pneumothorax. There is some asymmetric patchy somewhat nodular opacity in the left mid to upper lung that measures about 2 cm. The heart size, mediastinal contours and pulmonary vascularity are within normal limits. There is no significant skeletal abnormality. IMPRESSION: Moderate patchy interstitial edema with stable nodular opacity in left mid to upper lung field. Follow-up to resolution is recommended to exclude neoplasm. Impression/Recommendation Problems: (1) Systolic CHF Status: Chronic Assessment & Plan: diuresis with Bumex 2mg Q8H (2) PVC (premature ventricular contraction) Status: Chronic Assessment & Plan: increase Mexitil to TID (3) Paroxysmal atrial fibrillation Status: Chronic (4) Mixed hyperlipidemia Status: Chronic Assessment & Plan: continue Pravastatin (5) Stage III chronic kidney disease Status: Chronic Assessment & Plan: baseline creatinine 1.8 (6) Thrombocytopenia Status: Chronic Assessment & Plan: Platelet count is 23,000 (7) Atherosclerosis of coronary artery bypass graft without angina pectoris Status: Chronic Assessment & Plan: routine monitoring Recommendation Diuresis with Bumex, Increase Mexitil to decrease frequency of PVCs. Thank you for allowing us to participate in the care of this patient. YONI YEBOAH MD 10/13/16 1159: Past Medical History Current Medications Home Meds Active Scripts Bumetanide (Bumetanide) 1 Mg Tablet, 1 TAB PO DAILY, #30 TAB 0 Refills Prov:GIULIANA GARCIA MD 10/07/16 Magnesium Oxide (Magnesium Oxide) 400 Mg Tablet, 800 MG PO BID for Low magnesium , #120 TAB Prov:GIULIANA GARCIA MD 10/07/16 Mexiletine HCl (Mexiletine HCl) 150 Mg Capsule, 150 MG PO TID, #90 Prov:GIULIANA GARCIA MD 10/07/16 Hydroxyzine HCl (Hydroxyzine HCl) 25 Mg Tablet, 25 MG PO TID Y for ANXIETY, #30 Prov:GIULIANA GARCIA MD 10/07/16 Sodium Chloride (Deep Sea) 450 Newberg/45 Ml Newberg, 2 SPRAY EA NOSTRIL QID Y for NASAL CONGESTION, #1 BOTTLE Prov:JOHN PITTS MD 09/21/16 Guaifenesin/Dextromethorphan (Mucinex Dm ER 600-30 mg Tablet) 1 Each Tab.er.12h , 1 TAB PO Q12HR Y for COUGH/CONGESTION, #20 TAB Prov:JOHN PITTS MD 09/21/16 Metoprolol Tartrate (Metoprolol Tartrate) 25 Mg Tablet, 25 MG PO BIDWM for HTN/ Afib, #60 TAB Prov:JOHN PITTS MD 09/21/16 Reported Medications Fluticasone/Vilanterol (Breo Ellipta 100-25 Mcg INH) Unknown Strength Blst.w.dev , ORAL INH DAILY 10/06/16 Doxylamine Succinate (Unisom Sleep Aid) 25 Mg Tablet, 1 TAB PO HS Y for PRN ORDERS 09/18/16 Cyanocobalamin/Folic Acid (Vitamin G57-Rzlxq Acid Tablet) 1 Each Tablet, 1 TAB PO DAILY 09/18/16 Tiotropium Nunda (Spiriva) 1 Cap Inhaler, 1 CAP ORAL INH DAILY 09/18/16 Alendronate Sodium (Alendronate Sodium) 70 Mg Tablet, 70 MG PO Q7D 09/18/16 Albuterol Sulfate (Albuterol Sulfate) 2.5 Mg/3 Ml Vial.neb, 2.5 MG AEROSOL TID Y for SHORTNESS OF AIR/WHEEZING 09/18/16 Minocycline HCl (Minocycline HCl) 100 Mg Capsule, 100 MG PO BID 05/26/16 Pravastatin Sodium (Pravastatin Sodium) 20 Mg Tablet, 20 MG PO HS 05/26/16 Tamsulosin HCl (Tamsulosin HCl) 0.4 Mg Cap.er.24h, 0.4 MG PO HS 05/09/16 Pregabalin (Lyrica) 200 Mg Capsule, 200 MG PO TID 08/19/15 Ropinirole HCl (Ropinirole HCl) 1 Mg Tablet, 1.5 MG PO HS 08/19/15 Aspirin (Aspirin) 81 Mg Tablet, 81 MG PO DAILY 09/11/10 Discontinued Reported Medications Duloxetine HCl (Duloxetine HCl) 60 Mg Capsule.dr, 60 MG PO DAILY 09/18/16 Furosemide (Furosemide) 40 Mg Tablet, 40 MG PO DAILY 05/26/16 Folic Acid (Folic Acid) 1 Mg Tablet, 1 MG PO DAILY 06/28/15 Allergies: Coded Allergies: scopolamine (Verified Allergy, Severe, HALLUCINATIONS, 10/06/16) Bacitracin Zinc (Verified Allergy, Unknown, 10/06/16) bacitracin (Verified Allergy, Unknown, 10/06/16) codeine (Verified Allergy, Unknown, 10/06/16) neomycin sulfate (Verified Allergy, Unknown, 10/06/16) polymyxin B (Verified Allergy, Unknown, 10/06/16) simvastatin (Verified Allergy, Unknown, 10/06/16) Impression/Recommendation Recommendation After examining the patient I agree with the above assessment. I am involved in the formulation of the patient's plan of care. SHILPA RIVAS APRN October 07, 2016 07:58 YONI YEBOAH MD October 13, 2016 11:59
[2016-10-07] MEDS: PREGABALIN 200 MG PO SCH (09:13)
[2016-10-07] MEDS: --POM--METOPROLOL TARTRATE 25mg TABLET PO SCH (09:13)
[2016-10-07] MEDS: MINOCYCLINE 100 MG CAPSULE PO SCH (09:15)
[2016-10-07] MEDS: MAGNESIUM OXIDE 400 MG PO SCH (09:15)
--- NOTE | 2016-10-07 09:36 | DI ---
EXAM: FOOT RIGHT 3 VIEWS LOCATION OF DICTATION: [place] HISTORY: ITS.REASON: rt foot swelling, erythema COMPARISON: No prior studies available for comparison. FINDINGS: There is mild metatarsus primus varus hallux valgus deformity. The alignment of the hindfoot, midfoot, and forefoot joints is otherwise unremarkable. There are no visible fracture deformities demonstrated. Normal osseous mineralization is demonstrated. There is mild osteoarthrosis at the interphalangeal joints. Mild calcific atherosclerotic disease is noted. Moderate generalized soft tissue swelling demonstrated about the right foot. IMPRESSION: 1. Mild osteoarthrosis at the interphalangeal joints. 2. Mild metatarsus primus there is hallux valgus deformity. 3. No evidence for acute fracture. Moderate generalized diffuse soft tissue swelling. .
--- NOTE | 2016-10-07 10:25 | NUR ---
B[facility] CM VISITED PT. CM EXPLAINED ROLE AND PROVIDED CONTACT INFORMATION. PT PLANS TO RETURN HOME POST STAY AT [facility]. PT HAS [facility] ON BOARD AND THEY ARE AWARE THAT PT MAY RETURN HOME TODAY. PT IS AWARE TO CONTACT CM IF NEEDS [facility].
[2016-10-07 11:30] VITALS: O2SAT 95
--- NOTE | 2016-10-07 11:40 | NUR ---
OT/PT NOTE: Spoke with Dr. Garcia briefly before entering pt's room to perform OT/PT evals. Dr. Rosenabum states pt will be returning home today and to "ask pt if he needs anything or he may not need anything". Pt declined OT/PT evals, stating "I've tried all different kinds of therapy and it didn't help", "I have home health at home and they do everything I need", and "I don't walk, I have my scooter". No evals performed. Any questions, please call [phone]. Thank you.
[2016-10-07] MEDS ORDERED: MAGN400T6 PO (14:09)
[2016-10-07] MEDS ORDERED: MEXI150C2 PO (14:09)
[2016-10-07] MEDS ORDERED: HYDR25TA85 PO (14:09)
[2016-10-07] MEDS ORDERED: BUME1TAB17 PO (14:09)
--- NOTE | 2016-10-07 15:00 | NUR ---
States he is ready to go home. dc instructions reviewed medications reviewed with . ivl pulled pressure drg to iv site .dc with on scooters.
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
[2016-10-13] MEDS ORDERED: ALENDRONATE 70 MG TABLET PO SCH (06:00)
== END 2016-10-07 15:10 | disposition home health service (06) ==
LOC: ED 12:22 → EDHOLD 14:34 → OBSVTOIN 15:23 → INTOOBSV 15:23 → MED 15:23
PROVIDERS: ADMIT Internal Medicine; ATTEND Internal Medicine
DX: I50.22 Chronic systolic (congestive) heart failure (principal); I49.3 Ventricular premature depolarization; I48.0 Paroxysmal atrial fibrillation; F41.8 Other specified anxiety disorders; R06.02 Shortness of breath; E87.5 Hyperkalemia; E87.0 Hyperosmolality and hypernatremia; N17.9 Acute kidney failure, unspecified; I12.9 Hypertensive chronic kidney disease with stage 1 through stage 4 chronic kidney disease, or unspecified chronic kidney disease; N18.3 Chronic kidney disease, stage 3 (moderate); D46.9 Myelodysplastic syndrome, unspecified; I25.810 Atherosclerosis of coronary artery bypass graft(s) without angina pectoris; C34.92 Malignant neoplasm of unspecified part of left bronchus or lung; E78.2 Mixed hyperlipidemia; E03.9 Hypothyroidism, unspecified; J44.9 Chronic obstructive pulmonary disease, unspecified; Z87.01 Personal history of pneumonia (recurrent); G47.36 Sleep related hypoventilation in conditions classified elsewhere; D63.8 Anemia in other chronic diseases classified elsewhere; M81.0 Age-related osteoporosis without current pathological fracture; N40.0 Benign prostatic hyperplasia without lower urinary tract symptoms; D69.6 Thrombocytopenia, unspecified; Z87.891 Personal history of nicotine dependence
CPT/HCPCS: 36415; 71020; 73630; 80048; 80076; 83735; 83880; 84100; 84484; 84550; 85025; 85379; 93005; 94640; 96374; 99284; A9270; G0378; J2060; J3475; J7060; 99218

== ENCOUNTER → 2016-10-13 | Outpatient (CLI) | payer MEDICARE, OTHER ==
[~2016-10-13] MED LIST changes: +BUME1TAB17 PO; -DULO60CA56 PO; +FLUT1AER ORAL INH; -FOLI1TAB15 PO; -FURO40TA5 PO
== END ==
LOC: LABN.NHH 17:38
PROVIDERS: ATTEND Family Medicine
DX: J44.9 Chronic obstructive pulmonary disease, unspecified (principal)
CPT/HCPCS: 83735

== ENCOUNTER 2016-10-20 18:40 | Inpatient (IN) | payer MEDICARE, OTHER ==
[2016-10-20] VITALS (8 sets, daily range): BP systolic 116–133; BP diastolic 59–82; PULSE 101–113; RESP 16–32; TEMP 98.8; O2SAT 94–96; Ht 177.8 cm; Wt 67.5 kg
[~2016-10-20] VITALS: Ht 177.8 cm; Wt 67.5 kg
--- OUTSIDE RECORDS SUMMARY | 2016-10-20 18:45 | XMS REPORT | Continuity of Care Document ---
Author Author [facility] Organization [facility] Address Unknown Phone Unavailable Support Name Relationship Address Phone RALPH LEAL II, MD Caregiver [address] [place] [phone] ISAAC MELTON MD Caregiver [address] [place] [phone] ARLINE MARCANO MD Caregiver [address] [place] [phone] DONYA LÓPEZ Next Of Kin [address] [place], [place] [id number] Insurance Providers Payer Name Policy Number Subscriber Name Relationship Medicare [id number] Chucho López 20 Self Medicare Supp Wps [id number] Chucho López 20 Self Problems Medical Problems [...] F (96.8 - 99.1) Temperature (Calculated Celsius) 36.41763 degrees C (36.0 - 37.3) Pulse Rate [...] Has specimen been collected/obtained? Y Urine Specific [place] July 20, 2013 1:45pm 1.010 L - [...] 02, 2014 9:03am LAB TEST FORM REQUEST [id number] - HDL Cholesterol Direct May 02, 2014 [...] 2 0-7 Name: CHUCHO LÓPEZ Unit #: [id number] : 1940 Sex: M Loc / Svc: [facility] DOS: 08/28/14 Signed Report #: [id number] DIAGNOSTIC IMAGING REPORT TYPE OF EXAM: PELVIS [...] Encounters Encounter Location Date/Time Departed Emergency Room [facility] 09/13/14 7:57pm Registered Clinic [facility] 08/28/14 10:21am Recent Diagnosis
--- OUTSIDE RECORDS SUMMARY | 2016-10-20 18:47 | XMS REPORT | Continuity of Care Document ---
Author Author [facility] Organization [facility] Address Unknown Phone Unavailable Allergies Active Description Code Type Severity Reaction Onset Reported/Identified Relationship to Patient Clinical Status Yes No Known Food Allergies Food Allergy 08/24/2012 Yes Codeine Drug Allergy Nausea/Vomiting 08/27/2012 Yes CODEINE 67773 1 Nausea 06/03/2013 Yes codeine NKMA N/A Nausea/Vomiting 09/30/2013 Yes codeine NKMA N/A Nausea/Vomiting 09/30/2013 Yes codeine codeine Drug Allergy Unknown U 12/26/2013 Yes codeine codeine Drug Allergy Unknown U 12/26/2013 Yes NEOSPORIN 94271 1 SKIN IRRITATION 01/24/2014 Yes ZOCOR 93080 2 HEADACHE AND NAUSEA 01/24/2014 Yes scopolamine [...] Oral, q12hr, 60 tabs, 0 Refill(s ) HYDROcodone-acetaminophen(Doyle 10 mg-325 mg oral tablet) 1 tabs 05/18/2015 06/19/2015 Oral 1 tabs, Oral, TID, PRN: Pain - Breakthrough, 80 tabs, 0 Refill(s) HYDROcodone-acetaminophen(Doyle 10 mg-325 mg oral tablet) 1 tabs [...] 2 MG/1ML SYRINGE ML 10/30/2015 10/29/2016 IVP [id number] MORPHINE 4MG/1ML SYRINGE ML 10/30/2015 10/29/2016 IVP [id number] BISACODYL 10MG SUPPOS. SUP 10/30/2015 10/29/2016 NC* PRN LORazepam 0.5MG TABLET TAB 10/30/2015 10/29/2016 PO Q4HPRN BISACODYL 5MG TABLET TAB 10/30/2015 10/29/2016 PO PRN PHENOL 1.4% THROAT SPRAY [118ML] EA 10/30/2015 10/29/2016 PO PRN KETOROLAC 30 MG/1ML INJ DOS 10/30/2015 10/29/2016 IVP [id number] SODIUM CHLORIDE 0.9% 10ML FLUSH SYRINGE SYR [...] METOCLOPRAMIDE 10MG/2ML INJ VL 10/30/2015 10/29/2016 IVP [id number] FAMOTIDINE 20 MG TABLET TAB 10/30/2015 10/29/2016 [...] METOCLOPRAMIDE 10MG TABLET TAB 10/31/2015 10/30/2016 PO [id number] magnesium citrate(magnesium citrate) 11/05/2015 Oral Oral, 0 [...] 2 MG/1ML SYRINGE ML 01/10/2016 01/09/2017 IVP [id number] MORPHINE 4MG/1ML SYRINGE ML 01/10/2016 01/09/2017 IVP [id number] BISACODYL 10MG SUPPOS. SUP 01/10/2016 01/09/2017 NC* PRN LORazepam 0.5MG TABLET TAB 01/10/2016 01/09/2017 [...] METOCLOPRAMIDE 10MG/2ML INJ VL 01/10/2016 01/09/2017 IVP [id number] FAMOTIDINE 20 MG TABLET TAB 01/10/2016 01/09/2017 [...] METOCLOPRAMIDE 10MG TABLET TAB 01/11/2016 01/10/2017 PO [id number] MAGNESIUM SULFATE 2GM/50ML IV SOLN BAG 01/12/2016 [...] 08/01/2015 Damián Irizarry MD Final Z79.899 Other oil heaterman (current) drug therapy 10/31/2015 FANG DUNN DF [...] FANG DUNN I25.10 Atherosclerotic heart disease of [place] 10/31/2015 FANG DUNN I73.9 Peripheral vascular disease, [...] Tobacco use 10/31/2015 FANG DUNN Z79.01 senior living (current) use of anticoagulant 10/31/2015 FANG DUNN [...] FANG DUNN I25.10 Atherosclerotic heart disease of [place] 01/15/2016 FANG DUNN J43.9 Emphysema, unspecified 01/15/2016 [...] needle; deep (eg, vertebral body, femur) 07/24/2015 [id number] Excision of Lumbar Vertebra, Open Akil DUNN FANG 10/30/2015 [id number] Insertion of Infusion Device into Kelsy DUNN FANG 01/10/2016 [id number] Excision of Lumbar Vertebra, Open [facility] 01/10/2016 Results Test Result Range CBC [...] ALKALINE PHOSPHATASE TOTAL 82 IU/L 45- 117 95670-3 - 01/10/16 06:00 Leukocytes [#/volume] in Blood [...] or Plasma 0.8 mg/dl 1.8 - 2.6 00060-7 - 01/10/16 08:05 Microscopic observation [Identifier] in [...] blood 26 mmol /L 23 - 34 93224-8 - 01/11/16 04:30 Leukocytes [#/volume] in Blood [...] or Plasma 1.8 mg/dl 1.8 - 2.6 00758-1 - 01/13/16 06:15 Leukocytes [#/volume] in Blood [...] Status Pt. Type Provider Facility Loc./Unit Complaint [id number] 08/26/2012 05:00:00 2012 11:02:00 DIS Inpatient Lamin MEJIA, [facility] on [address]
--- NOTE | 2016-10-20 19:09 | ERPDOC ---
Departure Disposition Decision Date: October 20, 2016 Disposition Decision Time: 20:45 Disposition: 02 TO [facility] Impression Impression Impression: Primary Impression: Hospital-acquired pneumonia Additional Impressions: Dyspnea Dyspnea type: shortness of breath Qualified Codes: R06.02 - Shortness of breath Hypoxemia Severity: Severe Condition: Improved Seen By: Physician only Referrals: DAYDAY FERRARI MD (Family) Problems/Meds/Labs Reviewed?: Yes Medications reviewed and manag: Yes Follow up care ordered?: Yes Mental Status: Alert Critical Care Note Total Time (mins): 45 Critical Care Spent: [id number] care of pt, Reviewing test results, Discuss the case w/staff, Documenting the MR, Discussion w/ family/DPOA During this visit the pt was: Critically Ill HPI - Dyspnea General Chief Complaint: Dyspnea/Respdistress Stated Complaint: DIFFICULTY BREATHING Time Seen by Provider: 19:02 Source: patient Exam Limitations: no limitations HPI - Dyspnea Initial Comments Pt complains of worsening dyspnea for several weeks. Even after getting diureses two weeks ago, he was "only feeling better for a day or so." Saw Dr. Ferrari one week ago and then Dr. Triston Kim later last week. No testing done, but it was felt the patient was just having his "normal shortness of breath." For the past two evenings he has been having severe dyspnea with hypoxemia and requiring 6LNC without relief. Normally using 3L. Occurred At: home Onset/Timing: Gradual Severity: severe Prior Episodes/Possible Cause: frequent episodes Aspirin Treatment Today: unknown Hx of Similar Symptoms: Yes Allergies: Coded Allergies: scopolamine (Verified Allergy, Severe, HALLUCINATIONS, 10/06/16) Bacitracin Zinc (Verified Allergy, Unknown, 10/06/16) bacitracin (Verified Allergy, Unknown, 10/06/16) codeine (Verified Allergy, Unknown, 10/06/16) neomycin sulfate (Verified Allergy, Unknown, 10/06/16) polymyxin B (Verified Allergy, Unknown, 10/06/16) simvastatin (Verified Allergy, Unknown, 10/06/16) Past History Patient Surgical History Echocardiogram 09/18/16: 1. Global hypokinesia with ejection fraction of about 40%. 2. Mild left atrial dilation. 3. Mild left ventricular hypertrophy. 4. Mitral annulus calcification with mild mitral regurgitation. 5. Aortic sclerosis. 6. Mild tricuspid regurgitation with mild pulmonary hypertension with estimated pulmonary artery systolic pressure of 39. 4. Trace of pulmonary insufficiency. 5. Very small pericardial effusion with no echocardiographic evidence of tamponade. 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 Tympanostomy tubes placed 1988, 1989 TMJ meniscectomy, R 1981 Cardiac stent Colonoscopy with polpectomy 1993 colonoscopy, diverticulosis, hyperplastic polyp 03-14-2013 Manuel Transurethral treatment of bladder tumor 1990 Cystoscopy 1990 Past Medical History Metabolic: cancer, hypercholesterolemia, hypertension, hypothyroidism ENMT: ear infections Cardiac: A-fib, CAD Respiratory: COPD, pneumonia Neurological: neuropathy Musculoskeletal: back pain, osteoarthritis Hematologic: anemia Psychological: depression Surgical History General: back Cardiac: cardiac cath, cardiac stent Joint: knee Vaccines Hx Influenza Vaccination: Yes (FALL 2015) Hx Pneumococcal Vaccination: No (2011) Social History # of Packs/Tins per Day: 1 Second Hand Exposure: No Substance Use Type: does not use Alcohol Intake: none Marital Status: Sexuality: female partner Housing: house Household Members: spouse Service: Yes Current Occupational Status: retired Advance Directives: Yes Full Code Review of Systems Constitutional Constitutional: DENIES: appetite decrease, appetite increase, chills, dizziness , fever, weakness ENMT Ears: DENIES: pain Hearing: DENIES: hearing loss, tinnitus Balance: DENIES: vertigo Mouth/Throat: DENIES: change in swallowing, change in voice, hoarsness, painful swallowing, sore throat Cardiovascular Cardiac: DENIES: chest pain, dyspnea on exertion Rhythm/Rate: DENIES: irregular beat, palpitations, tachycardia Vascular: DENIES: pedal edema Pulmonary Respiratory: DENIES: cough, dyspnea, pleuritic chest pain GI Upper Abdomen: DENIES: dysphagia, heartburn/indigestion, nausea, pain, vomiting Lower Abdomen: DENIES: blood in stool, constipation, diarrhea, pain General: DENIES: burning, dysuria, frequency, pain, urgency Musculoskeletal General: DENIES: cramps, joint pain, joint swelling, pain, weakness Integumentary Skin: DENIES: rash, sores Neurological General: DENIES: headache, numbness, tingling, vertigo, weakness Physical Exam General General Nourishment: well nourished, well developed, appears stated age Distress Description Patient appears in significant distress, with his oxygen running as fast as it will go, and having a significant heart appearance. General Body Habitus: disheveled Vitals and Pain Weight: Kilograms: Height (feet): 5 Height (inches): 10.00 Triage Pain Scale: RN VS reviewed by Provider: Yes Normal Exams: Head: Normocephalic w/o trauma Eyes: Pupils are PERRLA w/ EOMI, No scleral icterus, irritation, or foreign bodies noted ENMT: No facial trauma, nasal exudates, pharyngeal erythema, or exudates are noted Neck: Full range of motion, without adenopathy, JVD, bruits or thyromegaly Abdomen: Bowel sounds positive, soft, non-tender, non-distended, no hepatosplenomegaly, masses or bruits noted Lymphatic: No lymphadenopathy, or lymphedema noted Musculoskeletal: No tenderness, or deformity noted, good range of motion, all extremities Integumentary: No rashes, hives, or bruising noted, hair and nails, without abnormality Neurologic: Patient is alert, and oriented, cranial nerves, motor/sensory/ cerebellar, exams w/o gross deficits, to observation Psychiatric: Patient exhibits, appropriate attention, emotion and affect Respiratory (brief) Respiratory: FOUND: equal bilaterally, symmetrical, wheezes, NOT FOUND: clear all horner (course mild wheezes bilaterally with slight crackles in the bases), rales, tenderness Cardiovascular (brief) Cardiac: NOT FOUND: click, gallop, murmur, pedal edema, regular rate, regular rhythm (irregularly irregular tachycardia) Capillary Refill: <2 sec Pulses: all distal extremities, equal, strong Progress Results/Orders Orders Procedure Category Date Status Time Iv Lock (Ed Only) EDM 10/20/16 Transmitted 19:02 Cbc W/Auto LAB 10/20/16 Complete Diff-Reflex Manual Cmp - Comprehensive LAB 10/20/16 Complete Metabolic EKG EKG 10/20/16 Taken Troponin I W LAB 10/20/16 Complete Hemolysis Index Chest, Pa & Lateral RAD 10/20/16 Taken Probnp LAB 10/20/16 Complete 19:02 Lactate - Lactic Acid LAB 10/20/16 Complete Procalcitonin LAB 10/20/16 Complete 19:41 Lactate - Lactic Acid LAB 10/21/16 Verified 00:11 Albuterol/Ipratropium PHA 10/20/16 Complete (Duoneb) 20:30 Normal Saline (Normal PHA 10/20/16 Complete Saline Iv) 20:30 Vancomycin (Vancocin) PHA 10/20/16 In Process 20:30 Levofloxacin 750 Mg PHA 10/20/16 In Process Ivpb (Levaquin 750 M 20:30 Cefepime (Maxipime) PHA 10/20/16 In Process 20:30 Lab Results Laboratory Tests Test 10/20/16 19:30 White Blood Count 18.1T/MM3 Red Blood Count 3.68M/MM3 Hemoglobin 10.4GM/DL Hematocrit 34.2% Mean Corpuscular Volume 92.9UM3 Mean Corpuscular Hemoglobin 28.3UUG Mean Corpuscular Hemoglobin Concent 30.4GM/DL RDW Standard Deviation 76.5FL Platelet Count 81T/MM3 Mean Platelet Volume 0.0UM3 Immature Granulocyte % (Auto) % Neutrophils (%) (Auto) % Lymphocytes (%) (Auto) % Monocytes (%) (Auto) % Eosinophils (%) (Auto) % Basophils (%) (Auto) % Absolute Immature Granulocyte (auto T/MM3 Absolute Neutrophils (auto) T/MM3 Absolute Lymphocytes (auto) T/MM3 Absolute Monocytes (auto) T/MM3 Absolute Eosinophils (auto) T/MM3 Absolute Basophils (auto) T/MM3 Neutrophils % (Manual) 66.0% Band Neutrophils % 17.0% Lymphocytes % (Manual) 4.0% Monocytes % (Manual) 11.0% Eosinophils % (Manual) 1.0% Myelocytes % 1.0% Absolute Neutrophils (Manual) 11.9T/MM3 Band Neutrophils # 3.1T/MM3 Lymphocytes # (Manual) 0.7T/MM3 Monocytes # (Manual) 2.0T/MM3 Eosinophils # (Manual) 0.2T/MM3 Myelocytes # 0.2T/MM3 Nucleated Red Blood Cells 1 Polychromasia 1+ Poikilocytosis 1+ Anisocytosis 1+ Target Cells 1+ Schistocytes 1+ Red Cell Morphology Comment Abnormal Turbidity < 20 Sodium Level 149MEQ/L Potassium Level 5.3MEQ/L Chloride Level 117MEQ/L Carbon Dioxide Level 17MEQ/L Anion Gap 15MEQ/L Blood Urea Nitrogen 42.0MG/DL Creatinine 2.1MG/DL Glomerular Filtration Rate Calc 31 BUN/Creatinine Ratio 20RATIO Glucose Level 105MG/DL Calculated Osmolality 297MOSM/KG Calcium Level 8.6MG/DL Total Bilirubin 1.10MG/DL Icterus Index < 2 Aspartate Amino Transf (AST/SGOT) 16U/L Alanine Aminotransferase (ALT/SGPT) 28U/L Alkaline Phosphatase 76U/L Troponin I < 0.012ng/ml VQ-Dfh-M-Type Natriuretic Peptide 15222EB/ML Total Protein 7.7G/DL Albumin 3.6G/DL Globulin 4.1G/DL Albumin/Globulin Ratio 0.9RATIO Plasma Lactate 1.1MMOL/L Procalcitonin 0.60NG/ML Chemistry Specimen Hemolysis < 15 Medications Current ED Medications Albuterol/ Ipratropium 6 ml 6 ml O ONCE AEROSOL ; Start 10/20/16 at 20:30; Stop 10/20/16 at 20:31; Status DC Sodium Chloride 1,000 ml @ 0 mls/hr Q0M ONCE IV ; Start 10/20/16 at 20:30; Stop 10/20/16 at 20:31; Status DC Vancomycin HCl 1 g/Sodium Chloride 250 ml @ 250 mls/hr O ONCE IV ; Start 10/20 at 20:30; Stop 10/20/16 at 21:29 Levofloxacin 750 mg/Dextrose/Water 150 ml @ 100 mls/hr O ONCE IV ; Start 10/20 at 20:30; Stop 10/20/16 at 21:59 Cefepime HCl/ Sodium Chloride (Maxipime/NS) 100 ml @ 200 mls/hr O ONCE IV ; Start 10/20/16 at 20:30; Stop 10/20/16 at 20:59 Progress Progress EKG - sinus tachycardia with frequent PVCs, unifocal. CBC - elevated white blood cell count with significant left shift to 17% bands CMP -multiple minor abnormalities Troponin - normal ProBNP - medically elevated, greater than 64,000 Chest x-ray - persistent infiltrative pattern as well as focal consolidations in the left upper lung field, and apparent worsening consolidations in the right lower and right middle lung horner. Patient started on 1 L normal saline IV fluid bolus for probable ammonia, also started on 3 tier anabiotic approach for hospital-acquired pneumonia. Case discussed with Dr. Foreman - we'll admit for IV anabiotic, continued respiratory therapy, for pneumonia and hypoxemia ALICIA WILSON MD October 20, 2016 19:09
--- OUTSIDE RECORDS SUMMARY | 2016-10-20 19:13 | XMS REPORT | Continuity of Care Document ---
Author Author [facility] Organization [facility] Address Unknown Phone Unavailable Support Name Relationship Address Phone RALPH LEAL II, MD Caregiver [address] [place] [phone] ISAAC MELTON MD Caregiver [address] [place] [phone] ARLINE MARCANO MD Caregiver [address] [place] [phone] DONYA LÓPEZ Next Of Kin [address] [facility] [place], [place] [id number] Insurance Providers Payer Name Policy Number Subscriber Name Relationship Medicare [id number] Chucho López 20 Self Medicare Supp Wps [id number] Chucho López 20 Self Problems Medical Problems [...] F (96.8 - 99.1) Temperature (Calculated Celsius) 36.27380 degrees C (36.0 - 37.3) Pulse Rate [...] Has specimen been collected/obtained? Y Urine Specific [place] July 20, 2013 1:45pm 1.010 L - [...] 02, 2014 9:03am LAB TEST FORM REQUEST [id number] - HDL Cholesterol Direct May 02, 2014 [...] 2 0-7 Name: CHUCHO LÓPEZ Unit #: [id number] : 1940 Sex: M Loc / Svc: [facility] DOS: 08/28/14 Signed Report #: [id number] DIAGNOSTIC IMAGING REPORT TYPE OF EXAM: PELVIS [...] Encounters Encounter Location Date/Time Departed Emergency Room [facility] 09/13/14 7:57pm Registered Clinic [facility] 08/28/14 10:21am Recent Diagnosis
[2016-10-20] MEDS ORDERED: BUME1TAB17 PO (19:17)
--- OUTSIDE RECORDS SUMMARY | 2016-10-20 19:20 | XMS REPORT | Continuity of Care Document ---
Author Author [facility] Organization [facility] Address Unknown Phone Unavailable Allergies Active Description Code Type Severity Reaction Onset Reported/Identified Relationship to Patient Clinical Status Yes No Known Food Allergies Food Allergy 08/24/2012 Yes Codeine Drug Allergy Nausea/Vomiting 08/27/2012 Yes CODEINE 97402 1 Nausea 06/03/2013 Yes codeine NKMA N/A Nausea/Vomiting 09/30/2013 Yes codeine NKMA N/A Nausea/Vomiting 09/30/2013 Yes codeine codeine Drug Allergy Unknown U 12/26/2013 Yes codeine codeine Drug Allergy Unknown U 12/26/2013 Yes NEOSPORIN 25837 1 SKIN IRRITATION 01/24/2014 Yes ZOCOR 48689 2 HEADACHE AND NAUSEA 01/24/2014 Yes scopolamine [...] Oral, q12hr, 60 tabs, 0 Refill(s ) HYDROcodone-acetaminophen([place] 10 mg-325 mg oral tablet) 1 tabs 05/18/2015 06/19/2015 Oral 1 tabs, Oral, TID, PRN: Pain - Breakthrough, 80 tabs, 0 Refill(s) HYDROcodone-acetaminophen([place] 10 mg-325 mg oral tablet) 1 tabs [...] 2 MG/1ML SYRINGE ML 10/30/2015 10/29/2016 IVP [id number] MORPHINE 4MG/1ML SYRINGE ML 10/30/2015 10/29/2016 IVP [id number] BISACODYL 10MG SUPPOS. SUP 10/30/2015 10/29/2016 HI* PRN LORazepam 0.5MG TABLET TAB 10/30/2015 10/29/2016 PO Q4HPRN BISACODYL 5MG TABLET TAB 10/30/2015 10/29/2016 PO PRN PHENOL 1.4% THROAT SPRAY [118ML] EA 10/30/2015 10/29/2016 PO PRN KETOROLAC 30 MG/1ML INJ DOS 10/30/2015 10/29/2016 IVP [id number] SODIUM CHLORIDE 0.9% 10ML FLUSH SYRINGE SYR [...] METOCLOPRAMIDE 10MG/2ML INJ VL 10/30/2015 10/29/2016 IVP [id number] FAMOTIDINE 20 MG TABLET TAB 10/30/2015 10/29/2016 [...] METOCLOPRAMIDE 10MG TABLET TAB 10/31/2015 10/30/2016 PO [id number] magnesium citrate(magnesium citrate) 11/05/2015 Oral Oral, 0 [...] 2 MG/1ML SYRINGE ML 01/10/2016 01/09/2017 IVP I4RMMMI MORPHINE 4MG/1ML SYRINGE ML 01/10/2016 01/09/2017 IVP V9NBHCY BISACODYL 10MG SUPPOS. SUP 01/10/2016 01/09/2017 HI* [...] METOCLOPRAMIDE 10MG/2ML INJ VL 01/10/2016 01/09/2017 IVP [id number] FAMOTIDINE 20 MG TABLET TAB 01/10/2016 01/09/2017 [...] METOCLOPRAMIDE 10MG TABLET TAB 01/11/2016 01/10/2017 PO E2BLOOMD MAGNESIUM SULFATE 2GM/50ML IV SOLN BAG 01/12/2016 [...] MD Final 737.30 IDIOPATHIC SCOLIOSIS 08/26/2012 Nikolay Kimlbe MD Final 738.4 ACQ SPONDYLOLISTHESIS 08/26/2012 Nikolay [...] 08/01/2015 Damián Irizarry MD Final Z79.899 Other intermediate accountant (current) drug therapy 10/31/2015 FANG DUNN DF [...] FANG DUNN I25.10 Atherosclerotic heart disease of [place] 10/31/2015 FANG DUNN I73.9 Peripheral vascular disease, unspecified 10/31/2015 AFNG DUNN I95.81 Postprocedural hypotension 10/31/2015 FANG DUNN [...] Z72.0 Tobacco use 10/31/2015 FANG DUNN Z79.01 MCC (current) use of anticoagulant 10/31/2015 AFNG DUNN Z85.51 Personal history of malignant neoplasm [...] FANG DUNN I25.10 Atherosclerotic heart disease of [place] 01/15/2016 FANG DUNN J43.9 Emphysema, unspecified 01/15/2016 [...] needle; deep (eg, vertebral body, femur) 07/24/2015 [id number] Excision of Lumbar Vertebra, Open Akil DUNN FANG 10/30/2015 [id number] Insertion of Infusion Device into Kelsy DUNN FANG 01/10/2016 [id number] [facility]bra, [facility] 01/10/2016 Results Test Result Range CBC [...] ALKALINE PHOSPHATASE TOTAL 82 IU/L 45- 117 24040-8 - 01/10/16 06:00 Leukocytes [#/volume] in Blood [...] or Plasma 0.8 mg/dl 1.8 - 2.6 46193-6 - 01/10/16 08:05 Microscopic observation [Identifier] in [...] blood 26 mmol /L 23 - 34 62593-2 - 01/11/16 04:30 Leukocytes [#/volume] in Blood [...] or Plasma 1.8 mg/dl 1.8 - 2.6 77834-8 - 01/13/16 06:15 Leukocytes [#/volume] in Blood [...] Status Pt. Type Provider Facility Loc./Unit Complaint [id number] 08/26/2012 05:00:00 2012 11:02:00 DIS Inpatient Lamin MEJIA, [facility] on [address]
[2016-10-20] MEDS ORDERED: MEXI150C2 PO (19:23)
[2016-10-20] MEDS ORDERED: MAGN400T6 PO (19:23)
[2016-10-20] MEDS ORDERED: METO25TA6 PO (19:23)
[2016-10-20] MEDS ORDERED: ALPR0.5T8 PO (19:25)
[2016-10-20] MEDS ORDERED: HYDR25TA85 PO (19:27)
[2016-10-20 19:51] LABS: HCT - HEMATOCRIT 34.2 % (41-53); HGB - HEMOGLOBIN 10.4 GM/DL (13.5-17.5); MEAN CORPUSCULAR HGB 28.3 UUG (26-34); MEAN CORPUSCULAR HGB CONC(MCHC 30.4 GM/DL (31-37); MEAN CORPUSCULAR VOLUME 92.9 UM3 (80-100); RED BLOOD COUNT 3.68 M/MM3 (4.50-5.90); WBC - WHITE BLOOD COUNT 18.1 T/MM3 (4.5-11.0)
[2016-10-20 19:59] LABS: ALBUMIN 3.6 G/DL (3.5-5.0); ALBUMIN/GLOBULIN RATIO 0.9 RATIO (1.1-2.2); ALKALINE PHOSPHATASE 76 U/L (38-126); ALT (SGPT) 28 U/L (21-72); ANION GAP 15 MEQ/L (5-15); AST (SGOT) 16 U/L (17-59); BUN/CREATININE RATIO 20 RATIO (6-26); CALCIUM 8.6 MG/DL (8.4-10.2); CHLORIDE 117 MEQ/L (98-107); CO2 - CARBON DIOXIDE 17 MEQ/L (22-30); CREATININE 2.1 MG/DL (0.8-1.5); GLOMERULAR FILTRATION RATE 31; GLUCOSE 105 MG/DL (75-110); POTASSIUM 5.3 MEQ/L (3.6-5); SODIUM 149 MEQ/L (134-144); TOTAL PROTEIN 7.7 G/DL (6.3-8.2)
[2016-10-20 20:07] LABS: BAND NEUTROPHILS # 3.1 T/MM3; EOSINOPHILS # (MANUAL) 0.2 T/MM3 (0-0.5); LYMPHOCYTES # (MANUAL) 0.7 T/MM3 (1-4.8); MYELOCYTES # 0.2 T/MM3; NEUTROPHILS #(MANUAL)-ABSOLUTE 11.9 T/MM3 (1.8-7.7); NUCLEATED RED BLOOD CELLS 1; TOTAL CELLS COUNTED 100 %
[2016-10-20 20:08] LABS: ANISOCYTOSIS 1+; POIKILOCYTOSIS 1+; POLYCHROMASIA 1+; SCHISTOCYTES 1+; TARGET CELLS 1+
--- NOTE | 2016-10-20 20:15 | NUR ---
STATUS PT WAS FOUND WITH IVL PULLED OUT. PT IS CONFUSED AT TIMES.
[2016-10-20] MEDS ORDERED: NORMAL SALINE 1,000 ML IV ONE (20:30)
[2016-10-20] MEDS ORDERED: VANCOMYCIN 1 G in NORMAL SALINE 250 ML IV ONE (20:30)
[2016-10-20] MEDS ORDERED: LEVOFLOXACIN 750 mg IVPB 750 MG in D5W 150 ML IV ONE (20:30)
[2016-10-20] MEDS ORDERED: ALBUTEROL/IPRATROPIUM INHAL. 2.5mg-0.5mg/3ml Neb. AEROSOL ONE (20:30)
[2016-10-20] MEDS ORDERED: CEFEPIME 1 G in NORMAL SALINE 100 ML IV ONE (20:30)
[2016-10-20] MEDS ORDERED: ONDANSETRON 4mg/2ml INJECTION IV PRN (21:00)
--- OUTSIDE RECORDS SUMMARY | 2016-10-20 21:10 | XMS REPORT | Continuity of Care Document ---
Author Author [facility] Organization [facility] Address Unknown Phone Unavailable Support Name Relationship Address Phone RALPH LEAL II, MD Caregiver [address] [place] [phone] ISAAC MELTON MD Caregiver [address] [place] [phone] ARLINE MARCANO MD Caregiver [address] [place] [phone] DONYA LÓPEZ Next Of Kin [address] [facility] [place], [place] [id number] Insurance Providers Payer Name Policy Number Subscriber Name Relationship Medicare [id number] Chucho López 18 Self Medicare Supp Wps [id number] Chucho López 20 Self Problems Medical Problems [...] F (96.8 - 99.1) Temperature (Calculated Celsius) 36.55433 degrees C (36.0 - 37.3) Pulse Rate [...] Has specimen been collected/obtained? Y Urine Specific [place] July 20, 2013 1:45pm 1.010 L - [...] 02, 2014 9:03am LAB TEST FORM REQUEST [id number] - HDL Cholesterol Direct May 02, 2014 [...] 2 0-7 Name: CHUCHO LÓPEZ Unit #: [id number] : 1940 Sex: M Loc / Svc: [facility] DOS: 08/28/14 Signed Report #: [id number] DIAGNOSTIC IMAGING REPORT TYPE OF EXAM: PELVIS [...] Encounters Encounter Location Date/Time Departed Emergency Room [facility] 09/13/14 7:57pm Registered Clinic [facility] 08/28/14 10:21am Recent Diagnosis
--- OUTSIDE RECORDS SUMMARY | 2016-10-20 21:12 | XMS REPORT | Continuity of Care Document ---
Author Author [facility] Organization [facility] Address Unknown Phone Unavailable Allergies Active Description Code Type Severity Reaction Onset Reported/Identified Relationship to Patient Clinical Status Yes No Known Food Allergies Food Allergy 08/24/2012 Yes Codeine Drug Allergy Nausea/Vomiting 08/27/2012 Yes CODEINE 91134 1 Nausea 06/03/2013 Yes codeine NKMA N/A Nausea/Vomiting 09/30/2013 Yes codeine NKMA N/A Nausea/Vomiting 09/30/2013 Yes codeine codeine Drug Allergy Unknown U 12/26/2013 Yes codeine codeine Drug Allergy Unknown U 12/26/2013 Yes NEOSPORIN 37457 1 SKIN IRRITATION 01/24/2014 Yes ZOCOR 21623 2 HEADACHE AND NAUSEA 01/24/2014 Yes scopolamine [...] Oral, q12hr, 60 tabs, 0 Refill(s ) HYDROcodone-acetaminophen([place] 10 mg-325 mg oral tablet) 1 tabs 05/18/2015 06/19/2015 Oral 1 tabs, Oral, TID, PRN: Pain - Breakthrough, 80 tabs, 0 Refill(s) HYDROcodone-acetaminophen([place] 10 mg-325 mg oral tablet) 1 tabs [...] 2 MG/1ML SYRINGE ML 10/30/2015 10/29/2016 IVP [id number] MORPHINE 4MG/1ML SYRINGE ML 10/30/2015 10/29/2016 IVP L2SVCMD BISACODYL 10MG SUPPOS. SUP 10/30/2015 10/29/2016 NM* PRN LORazepam 0.5MG TABLET TAB 10/30/2015 10/29/2016 PO Q4HPRN BISACODYL 5MG TABLET TAB 10/30/2015 10/29/2016 PO PRN PHENOL 1.4% THROAT SPRAY [118ML] EA 10/30/2015 10/29/2016 PO PRN KETOROLAC 30 MG/1ML INJ DOS 10/30/2015 10/29/2016 IVP F6SKQAT SODIUM CHLORIDE 0.9% 10ML FLUSH SYRINGE SYR [...] METOCLOPRAMIDE 10MG/2ML INJ VL 10/30/2015 10/29/2016 IVP G1ZEBOUR FAMOTIDINE 20 MG TABLET TAB 10/30/2015 10/29/2016 [...] METOCLOPRAMIDE 10MG TABLET TAB 10/31/2015 10/30/2016 PO Z9RPKNJA magnesium citrate(magnesium citrate) 11/05/2015 Oral Oral, 0 [...] 2 MG/1ML SYRINGE ML 01/10/2016 01/09/2017 IVP C6ESCKN MORPHINE 4MG/1ML SYRINGE ML 01/10/2016 01/09/2017 IVP K0QZZUO BISACODYL 10MG SUPPOS. SUP 01/10/2016 01/09/2017 NM* PRN LORazepam 0.5MG TABLET TAB 01/10/2016 01/09/2017 [...] METOCLOPRAMIDE 10MG/2ML INJ VL 01/10/2016 01/09/2017 IVP V1IMEQWL FAMOTIDINE 20 MG TABLET TAB 01/10/2016 01/09/2017 [...] METOCLOPRAMIDE 10MG TABLET TAB 01/11/2016 01/10/2017 PO [id number] MAGNESIUM SULFATE 2GM/50ML IV SOLN BAG 01/12/2016 [...] 08/01/2015 Damián Irizarry MD Final Z79.899 Other terminal manager (current) drug therapy 10/31/2015 FANG DUNN DF [...] FANG DUNN I25.10 Atherosclerotic heart disease of [place] 10/31/2015 FANG DUNN I73.9 Peripheral vascular disease, [...] Z72.0 Tobacco use 10/31/2015 FANG DUNN Z79.01 residential (current) use of anticoagulant 10/31/2015 FANG DUNN [...] FANG DUNN I25.10 Atherosclerotic heart disease of [place] 01/15/2016 FANG DUNN J43.9 Emphysema, unspecified 01/15/2016 [...] needle; deep (eg, vertebral body, femur) 07/24/2015 [id number] Excision of Lumbar Vertebra, Open Akil DUNN FANG 10/30/2015 [id number] Insertion of Infusion Device into Kelsy DUNN FANG 01/10/2016 [id number] Excision of Lumbar Vertebra, [facility] 01/10/2016 Results Test Result Range [...] ALKALINE PHOSPHATASE TOTAL 82 IU/L 45- 117 48684-2 - 01/10/16 06:00 Leukocytes [#/volume] in Blood [...] or Plasma 0.8 mg/dl 1.8 - 2.6 67724-8 - 01/10/16 08:05 Microscopic observation [Identifier] in [...] blood 26 mmol /L 23 - 34 37922-6 - 01/11/16 04:30 Leukocytes [#/volume] in Blood [...] or Plasma 1.8 mg/dl 1.8 - 2.6 15532-5 - 01/13/16 06:15 Leukocytes [#/volume] in Blood [...] Status Pt. Type Provider Facility Loc./Unit Complaint [id number] 08/26/2012 05:00:00 2012 11:02:00 DIS Inpatient Lamin MEJIA, [facility] on [address]
[2016-10-20] MEDS ORDERED: ALPRAZOLAM 0.5 MG TABLET PO PRN (21:15)
[2016-10-20] MEDS ORDERED: ALBUTEROL INH.SOLN. 2.5mg/3ml (0.083%) Neb. AEROSOL PRN (21:15)
[2016-10-20] MEDS: ALBUTEROL/IPRATROPIUM INHAL. 2.5mg-0.5mg/3ml Neb. AEROSOL SCH (21:15)
--- NOTE | 2016-10-20 21:50 | NUR ---
REPORT CALLED REPORT TO JERZY MILLS
--- NOTE | 2016-10-20 22:03 | HPPDOC ---
ALICIA MATHEWS MD 10/20/16 2154: HPI - Adult Date DATE: 10/20/16 TIME: 21:40 General History of Present Illness This is a 76 year old with h/o COPD, pulm HTN, CHF, AFib and non-small cell ca who presents with 3-4 day h/o worsening dyspnea, cough productive of yellow sputum and increased O2 requirement - normally on 3 L/min chronically but needing up to 6 L/min today - so decided to come in to the ER to be seen. Patient recently hospitalized for CHF exacerbation earlier this month. Dyspnea persisted to some degree after hospitalization and patient was seen by his PCP and by his parking meter collector over past 2 weeks. Patient denies chest pain , denies headache, denies f/c/s and denies change in bowel or baldder function. Patient received 1 L NS in ER, CXR showed chronic diffuse infiltrates and left lung mass which purportedly is stable however concern that infiltrates may be more prominent and with a WBC of 18.1 w/ a left shift and bands of 17% concern for acute pneumonia and patient started on triple abx therapy that of Cefepime, Vancomycin and Levaquin. Patient also going to receive 125mg IV SoluMedrol and neb treatments in ED. Patient to be admitted to the Hospitalist service for further evaluation and management. Patient is currently feeling "much better" and down to 4 L/min on NC in the CCU at the time that I saw him. Past Medical History Past Medical History (1) Systolic CHF (2) Non-small cell cancer of left lung (3) MDS (myelodysplastic syndrome) (4) Thrombocytopenia (5) COPD (chronic obstructive pulmonary disease) (6) Nocturnal hypoxemia (7) Mixed hyperlipidemia (8) Paroxysmal atrial fibrillation (9) Acute respiratory insufficiency (10) Anemia, chronic disease (11) Age related osteoporosis (12) BPH (benign prostatic hyperplasia) (13) Depression (14) Spinal stenosis (15) Peripheral neuropathy (16) Osteoarthritis (17) Hypothyroidism (18) Sensorineural hearing loss Surgical History Patient's Surgical History: Echocardiogram 09/18/16: 1. Global hypokinesia with ejection fraction of about 40%. 2. Mild left atrial dilation. 3. Mild left ventricular hypertrophy. 4. Mitral annulus calcification with mild mitral regurgitation. 5. Aortic sclerosis. 6. Mild tricuspid regurgitation with mild pulmonary hypertension with estimated pulmonary artery systolic pressure of 39. 4. Trace of pulmonary insufficiency. 5. Very small pericardial effusion with no echocardiographic evidence of tamponade. Kyphoplasty Back surgery 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 Tympanostomy tubes placed 1988, 1989 TMJ meniscectomy, R 1981 Cardiac stent Colonoscopy with polpectomy 1993 colonoscopy, diverticulosis, hyperplastic polyp 03-14-2013 Manuel Transurethral treatment of bladder tumor 1990 Cystoscopy 1990 Current Medications Home Meds Active Scripts Sodium Chloride (Deep Sea) 450 [place]/45 Ml [place], 2 SPRAY EA NOSTRIL QID Y for NASAL CONGESTION, #1 BOTTLE Prov:JOHN PITTS MD 09/21/16 Guaifenesin/Dextromethorphan (Mucinex Dm ER 600-30 mg Tablet) 1 Each Tab.er.12h , 1 TAB PO Q12HR Y for COUGH/CONGESTION, #20 TAB Prov:JOHN PITTS MD 09/21/16 Reported Medications Hydroxyzine HCl (Hydroxyzine HCl) 25 Mg Tablet, 25 MG PO TID Y for ANXIETY 10/20/16 Alprazolam (Alprazolam) 0.5 Mg Tablet, 0.25 MG PO DAILY Y for ANXIETY 10/20/16 Mexiletine HCl (Mexiletine HCl) 150 Mg Capsule, 150 MG PO TID 10/20/16 Metoprolol Tartrate (Metoprolol Tartrate) 25 Mg Tablet, 25 MG PO BIDWM 10/20/16 Magnesium Oxide (Magnesium Oxide) 400 Mg Tablet, 800 MG PO BID 10/20/16 Bumetanide (Bumetanide) 1 Mg Tablet, 1 MG PO DAILY 10/20/16 Fluticasone/Vilanterol (Breo Ellipta 100-25 Mcg INH) Unknown Strength Blst.w.dev , ORAL INH DAILY 10/06/16 Doxylamine Succinate (Unisom Sleep Aid) 25 Mg Tablet, 1 TAB PO HS Y for PRN ORDERS 09/18/16 Cyanocobalamin/Folic Acid (Vitamin V84-Lqdun Acid Tablet) 1 Each Tablet, 1 TAB PO DAILY 09/18/16 Tiotropium [place] (Spiriva) 1 Cap Inhaler, 1 CAP ORAL INH DAILY 09/18/16 Alendronate Sodium (Alendronate Sodium) 70 Mg Tablet, 70 MG PO Q7D 09/18/16 Albuterol Sulfate (Albuterol Sulfate) 2.5 Mg/3 Ml Vial.neb, 2.5 MG AEROSOL TID Y for SHORTNESS OF AIR/WHEEZING 09/18/16 Minocycline HCl (Minocycline HCl) 100 Mg Capsule, 100 MG PO BID 05/26/16 Pravastatin Sodium (Pravastatin Sodium) 20 Mg Tablet, 20 MG PO HS 05/26/16 Tamsulosin HCl (Tamsulosin HCl) 0.4 Mg Cap.er.24h, 0.4 MG PO HS 05/09/16 Pregabalin (Lyrica) 200 Mg Capsule, 200 MG PO TID 08/19/15 Ropinirole HCl (Ropinirole HCl) 1 Mg Tablet, 1.5 MG PO HS 08/19/15 Aspirin (Aspirin) 81 Mg Tablet, 81 MG PO DAILY 09/11/10 Allergies: Coded Allergies: scopolamine (Verified Allergy, Severe, HALLUCINATIONS, 10/06/16) Bacitracin Zinc (Verified Allergy, Unknown, 10/06/16) bacitracin (Verified Allergy, Unknown, 10/06/16) codeine (Verified Allergy, Unknown, 10/06/16) neomycin sulfate (Verified Allergy, Unknown, 10/06/16) polymyxin B (Verified Allergy, Unknown, 10/06/16) simvastatin (Verified Allergy, Unknown, 10/06/16) Family History Family History: Brother: PNA, colon CA, EtOH abuse, Father: Scott worker's pneumoconiosis Mother: NM, HLD, HTN Sister: NM - at age 52, breast CA Social History # of Packs/Tins per Day: 1 Second Hand Exposure: No Substance Use Type: does not use Alcohol Intake: none Marital Status: Sexuality: female partner Housing: house Household Members: spouse Service: Yes Current Occupational Status: retired Advance Directives: Yes Full Code Review of Systems All Other Systems All Other Systems: Reviewed (remainder of 10-point ROS Neg.) Physical Exam General General Nourishment: thin Vital Signs Vital Signs Date Time Temp Pulse Resp B/P Pulse Ox O2 Delivery O2 Flow Rate FiO2 10/20/16 20:59 20 Height (Feet): 5 Height (Inches): 10.00 Eyes Brief: FOUND: EOMI, PERRL, NOT FOUND: scleral icterus Comments Patient [place] ENMT Ear/Canal/Mastoid: FOUND: mucosa moist Mouth/Dental/Tongue: FOUND: mucosa moist Neck Brief: NOT FOUND: JVD, nuchal rigidity Respiratory Brief: FOUND: rales, wheezes Comments diminished breath sounds Cardiovascular (brief) Comments Regular S1 and S2 with tachycardia and intermittent ectopic beats/PVCs Abdomen (brief) Abdominal Brief: FOUND: BS normo active x4, soft, NOT FOUND: tender Neurologic RN Documented GCS Eye Opening: (4)Spontaneous Verbal: (5)Oriented Motor: (6)Obeys Commands Total: Psychiatric (brief) FOUND: alert, normal affect, oriented Laboratory Laboratory Tests Test 10/20/16 19:30 White Blood Count 18.1T/MM3 Red Blood Count 3.68M/MM3 Hemoglobin 10.4GM/DL Hematocrit 34.2% Mean Corpuscular Volume 92.9UM3 Mean Corpuscular Hemoglobin 28.3UUG Mean Corpuscular Hemoglobin Concent 30.4GM/DL RDW Standard Deviation 76.5FL Platelet Count 81T/MM3 Mean Platelet Volume 0.0UM3 Immature Granulocyte % (Auto) % Neutrophils (%) (Auto) % Lymphocytes (%) (Auto) % Monocytes (%) (Auto) % Eosinophils (%) (Auto) % Basophils (%) (Auto) % Absolute Immature Granulocyte (auto T/MM3 Absolute Neutrophils (auto) T/MM3 Absolute Lymphocytes (auto) T/MM3 Absolute Monocytes (auto) T/MM3 Absolute Eosinophils (auto) T/MM3 Absolute Basophils (auto) T/MM3 Neutrophils % (Manual) 66.0% Band Neutrophils % 17.0% Lymphocytes % (Manual) 4.0% Monocytes % (Manual) 11.0% Eosinophils % (Manual) 1.0% Myelocytes % 1.0% Absolute Neutrophils (Manual) 11.9T/MM3 Band Neutrophils # 3.1T/MM3 Lymphocytes # (Manual) 0.7T/MM3 Monocytes # (Manual) 2.0T/MM3 Eosinophils # (Manual) 0.2T/MM3 Myelocytes # 0.2T/MM3 Nucleated Red Blood Cells 1 Polychromasia 1+ Poikilocytosis 1+ Anisocytosis 1+ Target Cells 1+ Schistocytes 1+ Red Cell Morphology Comment Abnormal Turbidity < 20 Sodium Level 149MEQ/L Potassium Level 5.3MEQ/L Chloride Level 117MEQ/L Carbon Dioxide Level 17MEQ/L Anion Gap 15MEQ/L Blood Urea Nitrogen 42.0MG/DL Creatinine 2.1MG/DL Glomerular Filtration Rate Calc 31 BUN/Creatinine Ratio 20RATIO Glucose Level 105MG/DL Calculated Osmolality 297MOSM/KG Calcium Level 8.6MG/DL Total Bilirubin 1.10MG/DL Icterus Index < 2 Aspartate Amino Transf (AST/SGOT) 16U/L Alanine Aminotransferase (ALT/SGPT) 28U/L Alkaline Phosphatase 76U/L Troponin I < 0.012ng/ml SU-Klk-T-Type Natriuretic Peptide 11115OV/ML Total Protein 7.7G/DL Albumin 3.6G/DL Globulin 4.1G/DL Albumin/Globulin Ratio 0.9RATIO Plasma Lactate 1.1MMOL/L Procalcitonin 0.60NG/ML Chemistry Specimen Hemolysis < 15 Assessment & Plan Assessment 1) Acute on Chronic Hypoxic Respiratory Failure 2) Acute Exacerbation of COPD 3) Acute Pneumonia POA - concern re: HCAP d/t recent hospitalization 4) Acute Sepsis POA - elevated WBC and tachycardia and suspected pneumonia 5) CHF 6) Non -small Cell Ca of the lung 7) H/o Paroxysmal ATrial Fib - currently sinus tachycardia; not on anticoagulation other than ASA 8) Pulmonary HTN w/ h/o pulm fibrosis 9) HLD 10) CKD 11) Thrombocytopenia - chronic 12) Myelodysplastic syndrome 13) Chronic Anemia Plan/Intensity of Service Admit to Hospitalist service Telemetry HCAP triple abx therapy - Pharmacy consult for Vanc, Cefepime and Levaquin given patient's CKD Continue home meds as indicated Stop IVFs after bolus in ER d/t CHF and elevated BNP and recent hospitalization for CHF exacerbation SoluMedrol x one in ER, may continue if patient showing improvement - will continue w/ 80mg IV q 12 hours Nebs that of DuoNebs Q 4 hours and Albuterol q 2 hours prn Symbicort to replace Breo Ellipta ABGs RT Consult Oxygen therapy to keep sats > 90% Care Coordination/SW consult to d/w patient and family re: outpatient Hospice per family's request SCDs Labs in AM Code Status Full Code Hospital Course Summary Disclaimer The hospital course summary below is not to be considered part of the above Progress Note. HEATHER OVERTON MD 10/21/162120: Past Medical History Current Medications Home Meds Active Scripts Sodium Chloride (Deep Sea) 450 [place]/45 Ml [place], 2 SPRAY EA NOSTRIL QID Y for NASAL CONGESTION, #1 BOTTLE Prov:JOHN PITTS MD 09/21/16 Guaifenesin/Dextromethorphan (Mucinex Dm ER 600-30 mg Tablet) 1 Each Tab.er.12h , 1 TAB PO Q12HR Y for COUGH/CONGESTION, #20 TAB Prov:JOHN PITTS MD 09/21/16 Reported Medications Hydroxyzine HCl (Hydroxyzine HCl) 25 Mg Tablet, 25 MG PO TID Y for ANXIETY 10/20/16 Alprazolam (Alprazolam) 0.5 Mg Tablet, 0.25 MG PO DAILY Y for ANXIETY 10/20/16 Mexiletine HCl (Mexiletine HCl) 150 Mg Capsule, 150 MG PO TID 10/20/16 Metoprolol Tartrate (Metoprolol Tartrate) 25 Mg Tablet, 25 MG PO BIDWM 10/20/16 Magnesium Oxide (Magnesium Oxide) 400 Mg Tablet, 800 MG PO BID 10/20/16 Bumetanide (Bumetanide) 1 Mg Tablet, 1 MG PO DAILY 10/20/16 Fluticasone/Vilanterol (Breo Ellipta 100-25 Mcg INH) Unknown Strength Blst.w.dev , ORAL INH DAILY 10/06/16 Doxylamine Succinate (Unisom Sleep Aid) 25 Mg Tablet, 1 TAB PO HS Y for PRN ORDERS 09/18/16 Cyanocobalamin/Folic Acid (Vitamin E71-Lpjvp Acid Tablet) 1 Each Tablet, 1 TAB PO DAILY 09/18/16 Tiotropium [place] (Spiriva) 1 Cap Inhaler, 1 CAP ORAL INH DAILY 09/18/16 Alendronate Sodium (Alendronate Sodium) 70 Mg Tablet, 70 MG PO Q7D 09/18/16 Albuterol Sulfate (Albuterol Sulfate) 2.5 Mg/3 Ml Vial.neb, 2.5 MG AEROSOL TID Y for SHORTNESS OF AIR/WHEEZING 09/18/16 Minocycline HCl (Minocycline HCl) 100 Mg Capsule, 100 MG PO BID 05/26/16 Pravastatin Sodium (Pravastatin Sodium) 20 Mg Tablet, 20 MG PO HS 05/26/16 Tamsulosin HCl (Tamsulosin HCl) 0.4 Mg Cap.er.24h, 0.4 MG PO HS 05/09/16 Pregabalin (Lyrica) 200 Mg Capsule, 200 MG PO TID 08/19/15 Ropinirole HCl (Ropinirole HCl) 1 Mg Tablet, 1.5 MG PO HS 08/19/15 Aspirin (Aspirin) 81 Mg Tablet, 81 MG PO DAILY 09/11/10 Allergies: Coded Allergies: scopolamine (Verified Allergy, Severe, HALLUCINATIONS, 10/06/16) Bacitracin Zinc (Verified Allergy, Unknown, 10/06/16) bacitracin (Verified Allergy, Unknown, 10/06/16) codeine (Verified Allergy, Unknown, 10/06/16) neomycin sulfate (Verified Allergy, Unknown, 10/06/16) polymyxin B (Verified Allergy, Unknown, 10/06/16) simvastatin (Verified Allergy, Unknown, 10/06/16) Assessment & Plan Assessment Dr. Mathews's note reviewed. Mr. López interviewed and examined. Patient's provide some supplemental history as does nursing. CC: Progressive nocturnal dyspnea HPI: Mr. López is a 76-year-old male known from hospitalization about one month ago for CHF. Heart failure is managed by Dr. Gipson and he has a known ejection fraction of 40%. During last admission he was converted from Lasix to Bumex 1 mg daily. Since discharge the patient notes she's had gradually progressive increasing dyspnea which is been symptomatically primarily at night. He's had no cough until the past 24 hours. There is been increasing orthopnea; he always sleeps in a recliner chair but has had to sleep virtually upright the past couple of nights and was unable to sleep at all 2 nights ago due to dyspnea. He's had frequent episodes of PND over the past week. He's been wheezing but denies sputum production, fevers, chills, or sweats. Patient has chronic exertional dyspnea but exertion is also limited by his orthopedic problems. He's unsure if exertional dyspnea has been worse recently. Patient is on chronic nocturnal oxygen and has tried using oxygen during the day and use breathing treatments at home without any relief. He describes some discomfort in his chest when breathing is particularly heavy but has otherwise had no palpitations or chest pain. Urine output has been variable and he has had some increased edema in his feet and ankles but weight has not gone up. ER evaluation demonstrated increased oxygen demand and question of increased bilateral infiltrates which raised question of possible pneumonia in conjunction with an elevated white count. The patient reports that he simply short of breath and can't breathe but doesn't feel sick. PH/SH/FH: agree with that recorded above. The patient's is his alternate decision maker, full code confirmed with patient, primary care physician Dr. Ferrari. ROS: 10 point review notable only for chronic back pain and inability to stand straight due to prior back surgeries. Ambulation is severely limited both due to orthopedic issues and his chronic exertional dyspnea. Remainder of review of systems is as per history of present illness or negative. EXAM: General-NAD, breathing comfortably at the time of evaluation, alert. MAXIMUM TEMPERATURE 99.1 last night, currently 98.1 with BP 133/99 HEENT-PERRL, EOMI without nystagmus, conjunctiva clear, sclera anicteric, conjugate gaze, facial structures symmetric, oropharynx clear, neck supple and without adenopathy Lungs-inspiratory crackles one half up the right lung field posteriorly and a third [address] way up the left lung field posteriorly, respirations nonlabored, good airflow Cardiac-irregular rhythm with occasional 4 and 5 beats that are fairly regular ( sinus rhythm on the monitor with frequent unifocal PVCs), S1-S2 Abd-soft, nontender, without palpable mass, bowel sounds present Ext-1+ edema bilateral dorsal feet and ankles Skin-hands hyperpigmented, no generalized rash, superficial small abrasions on the shins left greater than right Neuro-sensation intact 4 extremities, motor tone normal, no tremor, power 4/5 throughout, no drift, cranial nerves II-12 intact Psych-pleasant, cooperative Chest x-ray reviewed by myself demonstrating increased vascular markings and questionable right lower lobe infiltrate. Nodular area left upper lung as in the past. White count 18.1 with 17 bands on admission, hemoglobin hemoglobin 10.4 and platelet count 80 1K. S Sodium 149, bicarbonate 17, BUN 42, creatinine 2.1, liver enzymes unremarkable, lactic acid 1.1. Blood gas on admission-7.32/36/59/88% oxygen saturation on 5 L supplemental O2 ProBNP 67,500 (proBNP 24,900 one month ago) A/P: Acute/chronic hypoxic respiratory failure Acute on chronic diastolic CHF Possible right lower lobe pneumonia Frequent PVCs (mexiletine increased to 3 times a day last admission) Leukocytosis Sepsis Paroxysmal atrial fibrillation Probable pulmonary fibrosis Myelodysplastic syndrome with thrombocytopenia and chronic anemia Chronic kidney disease, stage III Mr. López has had 2 recent admissions for dyspnea due to congestive heart failure. The bulk of data currently supports heart failure is the primary diagnosis both radiographically and by dramatically elevated BNP. Leukocytosis is atypical but the patient does not feel acutely ill nor does he appear toxic. Lactic acid was not elevated nor was procalcitonin which would favor a noninfectious etiology. Leukocytosis may be result of recent marrow stimulating agents although it's unclear exactly what the patient received but platelet count is significantly higher now at 81 then in early September when he presented with platelet count of 30 K and repeat value of 23 K. At discharge in early September there was discussion about whether 1 mg of Bumex daily would be adequate to control heart failure or whether higher dose would be needed and it appears that higher dose will be necessary. At present she'll be converted from furosemide to IV Bumex 1 mg twice a day with close monitoring of urine output and weight. In the morning I'll clarify with cancer [facility] what stimulating agents were administered and whether this may impact leukocytosis. Chest x-ray will be followed as pulmonary edema clears to get better view of the right lower lobe. In the intervening time antibiotics will be continued. Other home medications are being continued. Ventricular ectopy has improved from earlier this month when the patient was bigeminal and having occasional PVCs with different morphologies. DVT Prophylaxis: [facility] [place] [place] Summary Hospital Course Summary 10/20-10/21/16 Mr. López has had 2 recent admissions for dyspnea due to congestive heart failure. The bulk of data currently supports heart failure is the primary diagnosis both radiographically and by dramatically elevated BNP. Leukocytosis is atypical but the patient does not feel acutely ill nor does he appear toxic. Lactic acid was not elevated nor was procalcitonin which would favor a noninfectious etiology. Leukocytosis may be result of recent marrow stimulating agents although it's unclear exactly what the patient received but platelet count is significantly higher now at 81 then in early September when he presented with platelet count of 30 K and repeat value of 23 K. At discharge in early September there was discussion about whether 1 mg of Bumex daily would be adequate to control heart failure or whether higher dose would be needed and it appears that higher dose will be necessary. At present she'll be converted from furosemide to IV Bumex 1 mg twice a day with close monitoring of urine output and weight. In the morning I'll clarify with cancer [facility] what stimulating agents were administered and whether this may impact leukocytosis. Chest x-ray will be followed as pulmonary edema clears to get better view of the right lower lobe. In the intervening time antibiotics will be continued. Other home medications are being continued. Ventricular ectopy has improved from earlier this month when the patient was bigeminal and having occasional PVCs with different morphologies. ALICIA MATHEWS MD October 20, 2016 21:54 HEATHER OVERTON MD October 21, 2016 21:21
--- NOTE | 2016-10-20 22:05 | NUR ---
TRANSFER TO ICU
[2016-10-20] MEDS ORDERED: VANCOMYCIN 1,500 MG in NORMAL SALINE 500 ML IV ONE (22:30)
[2016-10-20] MEDS ORDERED: NORMAL SALINE 500 ML IV PRN (23:00)
[2016-10-20] MEDS: ROPINIROLE 1 MG TABLET PO SCH (23:14)
[2016-10-20] MEDS: TAMSULOSIN 0.4 MG CAPSULE PO SCH (23:15)
[2016-10-20] MEDS: PRAVASTATIN 20 MG TABLET PO SCH (23:15)
[2016-10-21] VITALS (40 sets, daily range): BP systolic 114–144; BP diastolic 57–99; PULSE 90–115; RESP 12–32; TEMP 97.6–98.1; O2SAT 76–100
--- NOTE | 2016-10-21 00:43 | NUR ---
Pt received into room 6 per cart from ER at 2205. came in with patient, went home after he was settled. Dr Croft saw patient. Pt was able to answer most of his questions. Fluids will not be continued after current bag is finished. Admission assessment completed.
--- NOTE | 2016-10-21 02:09 | NUR ---
Pt is 97% on 4L O2 per NC. O2 decreased to 3L. Will continue to monitor
[2016-10-21] MEDS: ALBUTEROL/IPRATROPIUM INHAL. 2.5mg-0.5mg/3ml Neb. AEROSOL SCH ×6 (02:57→23:32)
[2016-10-21 05:15] LABS: HCT - HEMATOCRIT 33.4 % (41-53); HGB - HEMOGLOBIN 9.6 GM/DL (13.5-17.5); MEAN CORPUSCULAR HGB 27.8 UUG (26-34); MEAN CORPUSCULAR HGB CONC(MCHC 28.7 GM/DL (31-37); MEAN CORPUSCULAR VOLUME 96.8 UM3 (80-100); RED BLOOD COUNT 3.45 M/MM3 (4.50-5.90); WBC - WHITE BLOOD COUNT 17.2 T/MM3 (4.5-11.0)
[2016-10-21 05:39] LABS: ANION GAP 14 MEQ/L (5-15); BUN/CREATININE RATIO 20 RATIO (6-26); CALCIUM 8.3 MG/DL (8.4-10.2); CHLORIDE 115 MEQ/L (98-107); CO2 - CARBON DIOXIDE 18 MEQ/L (22-30); GLOMERULAR FILTRATION RATE 33; GLUCOSE 154 MG/DL (75-110); POTASSIUM 4.9 MEQ/L (3.6-5); SODIUM 147 MEQ/L (134-144)
[2016-10-21] MEDS: CEFEPIME 1 G in NORMAL SALINE 100 ML IV SCH ×3 (05:41→21:39)
[2016-10-21 06:19] LABS: ANISOCYTOSIS 1+; BAND NEUTROPHILS # 2.6 T/MM3; MONOCYTES # (MANUAL) 0.2 T/MM3 (0-0.8); NEUTROPHILS #(MANUAL)-ABSOLUTE 10.5 T/MM3 (1.8-7.7); POIKILOCYTOSIS 1+; POLYCHROMASIA 1+; TOTAL CELLS COUNTED 100 %
[2016-10-21 06:20] LABS: HYPOCHROMASIA 1+
--- NOTE | 2016-10-21 06:31 | NUR ---
Dr Chaves informed of Pt unable to urinate. Straight cath ordered.
--- NOTE | 2016-10-21 08:20 | DI ---
INDICATION: ITS.REASON: dyspnea with hypoxemia PROCEDURE: CHEST 2-VIEWS UPRIGHT (PA \T\ LAT) Encounter: Initial COMPARISON: October 06, 2016 FINDINGS: Lungs are abnormal with multifocal chronic airspace disease. There is some worsening in the right lower lobe infiltrates. Chronic left upper lobe nodular area of opacity or scarring is stable. No pneumothorax. Small pleural effusions. Heart size and mediastinal contours are stable. Pulmonary vascularity is indistinct. Impression: Moderate pulmonary edema. Superimposed pneumonia or aspiration is possible in the right lower lobe. .
[2016-10-21] MEDS ORDERED: CEFEPIME 1 G in NORMAL SALINE 100 ML IV SCH (09:00)
[2016-10-21] MEDS: ASPIRIN 81 MG CHEWABLE TABLET PO SCH (09:29)
[2016-10-21] MEDS: BUMETANIDE 1 MG TABLET PO SCH (09:29)
[2016-10-21] MEDS: FOLBIC TABLET PO SCH (09:29)
[2016-10-21] MEDS: MEXILETINE 150 MG CAPSULE PO SCH ×3 (09:29→21:38)
--- NOTE | 2016-10-21 10:00 | NUR ---
OUTPUT Up to bathroom with gait belt and constant observation. Patient is stooped over substantially when he ambulates due to chronic pain. He states that he is unable to stand up straight. Chucho had a moderate soft bowel movement and no urine was noted in the hat. He stated that he felt as though he voided a small amount, however this RN is unable to measure the amount. Assisted back to bed on side with heels elevated and HOB up.
[2016-10-21] MEDS: VANCOMYCIN 1,000 MG in NORMAL SALINE 250 ML IV SCH (14:18)
--- NOTE | 2016-10-21 15:55 | NUR ---
Bladder Scan Scanned patient's bladder after insufficient voiding since last straight catheterization. Scan showed >999 ml of urine. Reported to Dr Garcia. Will stand patient again for voiding attempt, and place a blood catheter if needed, per her order.
--- NOTE | 2016-10-21 16:51 | NUR ---
CM THIS WORKER MET WITH PT ON THIS DATE. PT WAS ALONE LAYING IN BED AT THIS TIME. NO OTHER FAMILY PRESENT AT THIS TIME. THIS WORKER INTRODUCED SELF AND ROLE OF CASE MANAGEMENT. PT REPORTED THAT HIS DISCHARGE PLAN WAS TO RETURN HOME. PT REPORTED THAT HE LIVES IN HIS HOME WITH HIS . THIS WORKER DISCUSSED MANY HOSPITALIZATIONS AND PLANS FOR WHAT PT HAS PLANNED WITH PHYSICIANS. PT REPORTED THAT HE HAS MULTIPLE PHYSICIANS AND FOLLOWS RECOMMENDATIONS. THIS WORKER EXPLAINED THAT I WOULD PLAN TO RETURN ON 10/22/16 TO VISIT WITH AND PT. PT WAS THANKFUL FOR THIS WORKER'S VISIT AND WILL THINK OF THE NEEDS FOR DISCHARGE PLANNING.
[2016-10-21] MEDS: BUMETANIDE 2.5mg INJECTION IV SCH (16:59)
--- NOTE | 2016-10-21 16:59 | NUR ---
IV BUMEX Started on IV Bumex at this time after explanation provided to Chucho.
--- NOTE | 2016-10-21 17:00 | NUR ---
OUTPUT Patient was finally able to void 800 ml of light ariel urine. Therefore catheter was not inserted. Up to the recliner. Walks stooped clear over nearly 90 degrees at the waist due to back discomfort. He states that he is really just unable to stand straight. This does pose an increased fall risk and cause concern for risks at home. Chair alarm used in the recliner.
[2016-10-21] MEDS: ROPINIROLE 1 MG TABLET PO SCH (21:41)
[2016-10-21] MEDS: TAMSULOSIN 0.4 MG CAPSULE PO SCH (21:41)
[2016-10-21] MEDS: PRAVASTATIN 20 MG TABLET PO SCH (21:41)
[2016-10-22] VITALS (28 sets, daily range): BP systolic 85–192; BP diastolic 60–96; PULSE 89–111; RESP 12–36; TEMP 97.5–98.3; O2SAT 93–100
[2016-10-22] MEDS: ALBUTEROL/IPRATROPIUM INHAL. 2.5mg-0.5mg/3ml Neb. AEROSOL SCH ×6 (03:24→23:02)
[2016-10-22 05:01] LABS: HCT - HEMATOCRIT 30.3 % (41-53); HGB - HEMOGLOBIN 9.4 GM/DL (13.5-17.5); MEAN CORPUSCULAR HGB 28.4 UUG (26-34); MEAN CORPUSCULAR VOLUME 91.5 UM3 (80-100); RED BLOOD COUNT 3.31 M/MM3 (4.50-5.90); WBC - WHITE BLOOD COUNT 17.9 T/MM3 (4.5-11.0)
[2016-10-22] MEDS: CEFEPIME 1 G in NORMAL SALINE 100 ML IV SCH ×3 (05:10→22:25)
[2016-10-22 05:11] LABS: ALBUMIN 2.9 G/DL (3.5-5.0); ANION GAP 12 MEQ/L (5-15); BUN/CREATININE RATIO 26 RATIO (6-26); CALCIUM 8.5 MG/DL (8.4-10.2); CHLORIDE 114 MEQ/L (98-107); CO2 - CARBON DIOXIDE 16 MEQ/L (22-30); CREATININE 1.9 MG/DL (0.8-1.5); GLOMERULAR FILTRATION RATE 35; GLUCOSE 163 MG/DL (75-110); MAGNESIUM 1.4 MG/DL (1.6-2.3); PHOSPHORUS 6.1 MG/DL (2.5-4.5); POTASSIUM 4.6 MEQ/L (3.6-5); SODIUM 142 MEQ/L (134-144)
[2016-10-22 05:56] LABS: PROBNP 60800 PG/ML (0-175)
[2016-10-22 07:23] LABS: BAND NEUTROPHILS # 1.4 T/MM3; LYMPHOCYTES # (MANUAL) 1.6 T/MM3 (1-4.8); METAMYELOCYTES # 0.2 T/MM3; MONOCYTES # (MANUAL) 1.1 T/MM3 (0-0.8); MYELOCYTES # 0.5 T/MM3; NEUTROPHILS #(MANUAL)-ABSOLUTE 13.1 T/MM3 (1.8-7.7); TOTAL CELLS COUNTED 100 %
[2016-10-22 07:24] LABS: ANISOCYTOSIS 2+
[2016-10-22 07:25] LABS: POIKILOCYTOSIS 2+
--- NOTE | 2016-10-22 07:25 | NUR ---
Pt had a restful night. Slept for the last half of the night. Pt denies pain. Continues to require 2L O2. Report given to STEPHANIE BERTRAND.
[2016-10-22 07:26] LABS: OVALOCYTES 1+; TARGET CELLS 1+
[2016-10-22 07:28] LABS: GIANT PLATELETS FEW
[2016-10-22] MEDS: FOLBIC TABLET PO SCH (08:50)
[2016-10-22] MEDS: MEXILETINE 150 MG CAPSULE PO SCH ×3 (08:50→22:26)
[2016-10-22] MEDS: ASPIRIN 81 MG CHEWABLE TABLET PO SCH (08:50)
[2016-10-22] MEDS: BUMETANIDE 2.5mg INJECTION IV SCH ×2 (08:54→14:51)
[2016-10-22] MEDS: MAGNESIUM SULFATE 1 G in D5W 100 ML IV SCH ×2 (10:42→12:08)
[2016-10-22] MEDS ORDERED: ACETAMINOPHEN 325 MG TABLET PO PRN (14:00)
[2016-10-22] MEDS: VANCOMYCIN 1,000 MG in NORMAL SALINE 250 ML IV SCH (14:00)
[2016-10-22] MEDS: OXYCODONE/APAP 5mg/325mg TABLET PO PRN ×2 (14:50→20:54)
--- NOTE | 2016-10-22 14:52 | NUR ---
COMFORT PERCOCET 5 ONE TAB PO FOR C/O LOW BACK DISCOMFORT R/T HISTORY BACK SURGERIES AND DISCOMFORT OF OUR BEDS. SL SOA NOTED WITH ACTIVITY. OS CONT 2 L PER NC.
--- NOTE | 2016-10-22 15:20 | PNPDOC ---
Subjective Date DATE: 10/22/16 TIME: 15:00 Subjective Mr. López reports his breathing is 100% better today. He was able to sleep well last night and is currently resting with the head of the bed at about 30. He reports that nebulized breathing treatments help him a lot more than MDI he uses at home does thinks that's been a lot of the improvement. Patient is anxious to discharge and this is been the pattern seen in recent admissions that his respiratory status improves quickly but then deteriorates quickly after discharge to. He denies chest pain or palpitations, is eating well at 100 % of all meals and denies nausea or vomiting. Edema is gone. He complains of back pain which she attributes to prior back surgeries and spending too much time in a hospital bed. He has been up in a chair for meals and does not wish to consider physical therapy due to his chronic disability from prior surgeries. Objective Vital Signs Vital signs Vital Signs Date Time Temp Pulse Resp B/P Pulse Ox O2 Delivery O2 Flow Rate FiO2 10/22/16 13:01 98 26 192/78 100 Nasal Cannula 2.00 10/22/16 12:00 98.2 I/O fluid balance essentially even yesterday, -650 mL so far today. 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, S1-S2 Abd-diminished bowel sounds but abdomen is soft and nontender Ext-no peripheral edema Skin-hypopigmentation dorsal surface of the hands and forearms, superficial abrasions on the shins and several toes as previously described Neuro-moving upper extremities well, sensation intact 4 extremities Psych-talkative, cooperative, calm - Height (Feet): 5 Height (Inches): 10.00 Weight (Kilograms): 68.500 Laboratory Laboratory Laboratory Tests 10/20/16 19:30 10/21/16 04:53 10/22/16 04:43 Laboratory Tests 10/20/16 19:30 10/21/16 04:53 10/22/16 04:43 Segs 73, bands 8, lymphocytes 9, monocytes 6, metamyelocytes 1, myelocytes 3 ProBNP 60,800-minimally improved from admission Magnesium 1.4, phosphorus 6.1 EKG Sinus rhythm with frequent PVCs Assessment & Plan Assessment Acute/chronic hypoxic respiratory failure Acute on chronic diastolic CHF Possible right lower lobe pneumonia Leukocytosis Hypomagnesemia Sepsis Hypernatremia Frequent PVCs (mexiletine increased to 3 times a day last admission) Paroxysmal atrial fibrillation Pulmonary fibrosis-patient confirms diagnosis 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 May require continuous oxygen at discharge. Continue diuresis-very small-volume changes appear to have significant impact on patient's respiratory status, echo again reviewed-no significant valvular disease appears to be playing a role in her symptoms but LVH present and diastolic dysfunction in conjunction with borderline low ejection fraction present. BUN climbing with diuresis; patient unfortunately is dealing with triad of pulmonary, cardiac, and renal disease with limited ability to compensate for minor fluctuations. Leukocytosis persists with significant left shift. He received injections of Neupogen and Nplate to stimulate hemoglobin and platelets. Neither should significantly impact white cells nor is leukocytosis listed as a side effect of either although differential being reported does not correspond to patient's symptoms or presentation. Suspect generalized bone marrow stimulation accounts for the leukocytosis. Will begin narrowing antibiotics. Discontinue vancomycin as patient is on chronic suppressive minocycline for staph. Recheck chest x-ray in a.m. with PA/ lateral to better define presence of infiltrate after diuresis. Can potentially discharged with Levaquin for short course. Anticipate nebulizer at discharge as patient is found MDI ineffective and he may be incapable of effective use of MDI. Convert from Solu-Medrol to oral prednisone at 40 mg daily today for COPD exacerbation in conjunction with CHF/possible pneumonia. Patient's daughter has raised the question of hospice which patient is not interested in; palliative care discussed with patient as an alternative option. We'll discuss further tomorrow or when family present. Magnesium being replaced IV today with increased oral magnesium supplement thereafter. Resume Tylenol as needed for back pain; low-dose oxycodone added while hospitalized for increased pain due to hospital bed/relative immobility. Encouraged to be out of bed as much as possible. Stable to transfer out of ICU. Plan/Intensity of Service Laboratory data reviewed, discussed with cardiology, chest x-ray ordered, hospice/palliative care discussed. Code Status Full Code Hospital Course Summary Disclaimer The hospital course summary below is not to be considered part of the above Progress Note. Hospital Course Summary 10/20-10/21/16 Mr. López has had 2 recent admissions for dyspnea due to congestive heart failure. The bulk of data currently supports heart failure is the primary diagnosis both radiographically and by dramatically elevated BNP. Leukocytosis is atypical but the patient does not feel acutely ill nor does he appear toxic. Lactic acid was not elevated nor was procalcitonin which would favor a noninfectious etiology. Leukocytosis may be result of recent marrow stimulating agents although it's unclear exactly what the patient received but platelet count is significantly higher now at 81 then in early September when he presented with platelet count of 30 K and repeat value of 23 K. At discharge in early September there was discussion about whether 1 mg of Bumex daily would be adequate to control heart failure or whether higher dose would be needed and it appears that higher dose will be necessary. At present she'll be converted from furosemide to IV Bumex 1 mg twice a day with close monitoring of urine output and weight. In the morning I'll clarify with [facility] what stimulating agents were administered and whether this may impact leukocytosis. Chest x-ray will be followed as pulmonary edema clears to get better view of the right lower lobe. In the intervening time antibiotics will be continued. Other home medications are being continued. Ventricular ectopy has improved from earlier this month when the patient was bigeminal and having occasional PVCs with different morphologies. 10/22/16 Clinically improved with decreased oxygen demand but still requiring O2. May require continuous oxygen at discharge. Continue diuresis-very small-volume changes appear to have significant impact on patient's respiratory status, echo again reviewed-no significant valvular disease appears to be playing a role in her symptoms but LVH present and diastolic dysfunction in conjunction with borderline low ejection fraction present. BUN climbing with diuresis; patient unfortunately is dealing with triad of pulmonary, cardiac, and renal disease with limited ability to compensate for minor fluctuations. Leukocytosis persists with significant left shift. He received injections of Neupogen and Nplate to stimulate hemoglobin and platelets. Neither should significantly impact white cells nor is leukocytosis listed as a side effect of either although differential being reported does not correspond to patient's symptoms or presentation. Suspect generalized bone marrow stimulation accounts for the leukocytosis. Will begin narrowing antibiotics. Discontinue vancomycin as patient is on chronic suppressive minocycline for staph. Recheck chest x-ray in a.m. with PA/ lateral to better define presence of infiltrate after diuresis. Can potentially discharged with Levaquin for short course. Anticipate nebulizer at discharge as patient is found MDI ineffective and he may be incapable of effective use of MDI. Convert from Solu-Medrol to oral prednisone at 40 mg daily today for COPD exacerbation in conjunction with CHF/possible pneumonia. Patient's daughter has raised the question of hospice which patient is not interested in; palliative care discussed with patient as an alternative option. We'll discuss further tomorrow or when family present. Magnesium being replaced IV today with increased oral magnesium supplement thereafter. Resume Tylenol as needed for back pain; low-dose oxycodone added while hospitalized for increased pain due to hospital bed/relative immobility. Encouraged to be out of bed as much as possible. Stable to transfer out of ICU. HEATHER OVERTON MD October 22, 2016 15:06
--- NOTE | 2016-10-22 15:36 | WOUNDPN ---
Nurse to Nurse Wound Consult Pt is known to the wound center, pt has no skin concerns at this time. LAMIN MAYER RN October 22, 2016 15:36
--- NOTE | 2016-10-22 16:40 | NUR ---
BEVERLEY THIS WORKER MET WITH PT ON THIS DATE. PT REPORTED THAT HE HAS BEEN THINKING ABOUT DISCHARGE PLANNING. PT REPORTED THAT HE AND HIS SPOKE BRIEFLY REGARDING THE PLAN. PT REPORTED THAT HE WOULD NEVER THINK ABOUT A LONGTERM AND THAT HE HAS CONSIDERED PRIVATE PAY FOR HOME HEALTH SERVICES. PT REPORTED THAT HE WAS PLANNING TO TALK WITH HIS DAUGHTER RINA AND HIS TOMORROW. THIS WORKER OFFERED TO VISIT WITH PT AND TO DISCUSS FURTHER PLANNING. PT IN [employer] AND REPORTED FEELING BETTER. THIS WORKER WILL CONTINUE TO FOLLOW AND ASSIST IN DISCHARGE PLANNING.
--- NOTE | 2016-10-22 16:55 | NUR ---
TRANSFER TO MEDICAL UNIT ROOM 154 PER W/CH ACCOMP BY Serina GARCIA RN. CONT TO C/O BACK DISCOMFORT. SL SOA W/ ACTIVITY CONT TO BE NOTED. O2 2L PER NC. IS DIURESING WELL FOLLOWING BUMEX. MONITOR CONT SR WITH FREQ PVC'S NOTED, RUNS OF BIGEMINAL AND TRIGEMINAL PVC'S NOTED FREQUENTLY THROUGHOUT THE DAY.
--- NOTE | 2016-10-22 16:55 | NUR ---
TRANSFER PT TRANSFERRED FROM CCU #6 TO ROOM 147 AT THIS TIME VIA WHEELCHAIR. PT TRANSFERRED FROM WC TO BED WITH ASSIST X2. HOB ELEVATED. SIDE RAILS UP X2. BED ALARM ON. CALL LIGHT IN REACH. VS STABLE ON 2L OF O2 VIA NC. WILL CONTINUE TO MONITOR.
[2016-10-22] MEDS: PredniSONE 20 MG TABLET PO SCH (17:42)
[2016-10-22] MEDS: MAGNESIUM OXIDE 400 MG TABLET PO SCH (17:43)
[2016-10-22] MEDS ORDERED: LEVOFLOXACIN 750 mg IVPB 750 MG in D5W 150 ML IV SCH (22:00)
[2016-10-22] MEDS: PREGABALIN 100 MG CAPSULE PO SCH (22:26)
[2016-10-22] MEDS: MINOCYCLINE 100 MG CAPSULE PO SCH (22:28)
[2016-10-22] MEDS: TAMSULOSIN 0.4 MG CAPSULE PO SCH (22:28)
[2016-10-22] MEDS: ROPINIROLE 1 MG TABLET PO SCH (22:28)
[2016-10-22] MEDS: PRAVASTATIN 20 MG TABLET PO SCH (22:29)
[2016-10-23] VITALS (20 sets, daily range): BP systolic 80–130; BP diastolic 55–79; PULSE 40–105; RESP 12–20; TEMP 95.7–97.5; O2SAT 87–99
[2016-10-23] MEDS: OXYCODONE/APAP 5mg/325mg TABLET PO PRN ×5 (02:50→21:16)
[2016-10-23] MEDS: ALBUTEROL/IPRATROPIUM INHAL. 2.5mg-0.5mg/3ml Neb. AEROSOL SCH ×6 (03:02→21:32)
[2016-10-23] MEDS: MINOCYCLINE 100 MG CAPSULE PO SCH ×2 (04:52→21:17)
[2016-10-23] MEDS: CEFEPIME 1 G in NORMAL SALINE 100 ML IV SCH (04:52)
[2016-10-23 05:26] LABS: ANION GAP 13 MEQ/L (5-15); BUN/CREATININE RATIO 29 RATIO (6-26); CALCIUM 8.7 MG/DL (8.4-10.2); CHLORIDE 110 MEQ/L (98-107); CO2 - CARBON DIOXIDE 18 MEQ/L (22-30); CREATININE 1.9 MG/DL (0.8-1.5); GLOMERULAR FILTRATION RATE 35; GLUCOSE 147 MG/DL (75-110); MAGNESIUM 1.7 MG/DL (1.6-2.3); PHOSPHORUS 6.3 MG/DL (2.5-4.5); POTASSIUM 4.3 MEQ/L (3.6-5); SODIUM 141 MEQ/L (134-144)
[2016-10-23 05:28] LABS: HCT - HEMATOCRIT 32.1 % (41-53); HGB - HEMOGLOBIN 9.4 GM/DL (13.5-17.5); MEAN CORPUSCULAR HGB 27.6 UUG (26-34); MEAN CORPUSCULAR HGB CONC(MCHC 29.3 GM/DL (31-37); MEAN CORPUSCULAR VOLUME 94.1 UM3 (80-100); RED BLOOD COUNT 3.41 M/MM3 (4.50-5.90); WBC - WHITE BLOOD COUNT 17.4 T/MM3 (4.5-11.0)
[2016-10-23 06:27] LABS: LYMPHOCYTES # (MANUAL) 0.3 T/MM3 (1-4.8); METAMYELOCYTES # 0.2 T/MM3; MONOCYTES # (MANUAL) 1.7 T/MM3 (0-0.8); MYELOCYTES # 0.3 T/MM3; NEUTROPHILS #(MANUAL)-ABSOLUTE 11.8 T/MM3 (1.8-7.7); TOTAL CELLS COUNTED 100 %
[2016-10-23 06:36] LABS: ANISOCYTOSIS 2+; POIKILOCYTOSIS 1+
[2016-10-23 06:37] LABS: OVALOCYTES 1+
--- NOTE | 2016-10-23 07:07 | NUR ---
SUMMARY OF SHIFT: Alert and orientated. Pleasant and cooperative. Ambulates to bathroom with use of walker, gait belt and assistance of one. Dyspnic with exertion/activity. Recieves IV antibiotics. Good IV site`in right forearm. O2 at 2/L per NC continually. Resp. therapy in to administer breathing treatments. Percocet seems to be effective for chronic back pain. Percocet 5/325 mg., 1 pill, given three times during this 12- hour shift.
--- NOTE | 2016-10-23 08:00 | DI ---
INDICATION: ITS.REASON: pulmonary edema, questionable pneumonia PROCEDURE: CHEST 2-VIEWS UPRIGHT (PA \T\ LAT) Encounter: Initial COMPARISON: October 20, 2016 FINDINGS: Bilateral airspace opacities have improved with a mild amount remaining. Left upper lobe scarring. Trace fluid along the minor fissure. No pneumothorax. Heart size and mediastinal contours are stable. Pulmonary vascularity remains indistinct. Impression: Decreasing pulmonary edema. .
[2016-10-23] MEDS: ASPIRIN 81 MG CHEWABLE TABLET PO SCH (08:48)
[2016-10-23] MEDS: FOLBIC TABLET PO SCH (08:49)
[2016-10-23] MEDS: MEXILETINE 150 MG CAPSULE PO SCH ×3 (08:49→21:16)
[2016-10-23] MEDS: PredniSONE 20 MG TABLET PO SCH (08:49)
[2016-10-23] MEDS: PREGABALIN 100 MG CAPSULE PO SCH ×3 (08:50→21:16)
[2016-10-23] MEDS: MAGNESIUM OXIDE 400 MG TABLET PO SCH ×2 (08:50→17:16)
[2016-10-23] MEDS: BUMETANIDE 2.5mg INJECTION IV SCH (08:51)
--- NOTE | 2016-10-23 10:46 | NUR ---
PAIN/PRN PERCOCET Pt C/O PAIN RATED 4/10 IN MID-BACK, REQUESTING PRN PERCOCET. PRN PERCOCET 1 TAB GIVEN; SEE eMAR. WILL CONTINUE TO MONITOR.
--- NOTE | 2016-10-23 11:55 | NUR ---
BEVERLEY THIS WORKER MET WITH PT ON THIS DATE. DISCUSSED DISCHARGE PLAN AND NEEDS. PT REPORTED THAT HE WOULD LIKE TO RESUME HOME HEALTH FOR SURE. PT REPORTED THAT HE WOULD NOT NEED ANY OTHER SERVICES FOR HOME HEALTH AT THIS TIME. THIS WORKER DISCUSSED THE POSSIBILITY OF PRIVATE PAY FOR SERVICES IN THE HOME IF PT WOULD NEED THAT. PT IS AWARE OF THIS OPTION. DURING CONVERSATION, DAUGHTER, PETE CAME IN TO DISCUSS NEEDS WELL. PALLIATIVE CARE WAS DISCUSSED AND PT IS WILLING TO HAVE THAT DISCUSSION WITH THE [employer] SECURITY WITH THE ROTP PROGRAM. PT ALSO AGREEABLE TO ROTP. PT IS NOT READY FOR HOSPICE AT THIS TIME, BUT WAS INTERESTED IN THE PALLIATIVE CARE DISCUSSION. ROTP INFORMATION PROVIDED TO PT AND FAMILY. PT WILL HAVE TRANSPORTATION FROM AT TIME OF DISCHARGE. PT WILL ALSO RESUME HOME HEALTH SERVICES WITH [facility].
--- NOTE | 2016-10-23 12:24 | NUR ---
HYPOTENSION/BRADYCARDIA SARBJIT HALL, IN TO CHECK NOON VITALS ON Pt, WHO IS RESTING IN BED. INITIAL BP 80/55, HR 82, 87% RA. THIS RN NOTIFIED AND IN RM TO ASSESS Pt. 3 MIN. LATER, BP 88/56, HR 40. O2 PROBE ON L EARLOBE READING 60-70s, BUT O2 PROBE HAS NOT BEEN VERY ACCURATE IN THE PAST FOR THIS Pt D/T POOR CIRCULATION. O2 2L APPLIED. THIS RN NOTIFIED DR OVERTON OF PT'S BP AND HR, Pt DENYING SYMPTOMS. VERBAL ORDER FOR TELE. WILL CONTINUE TO MONITOR.
--- NOTE | 2016-10-23 13:32 | NUR ---
BP BP RECHECKED PER DR OVERTON'S REQUEST. CURRENT VS: BP 79/56, HR 84, 92% RA. DR OVERTON NOTIFIED VIA PHONE AND VO TO HOLD NEXT DOSE OF BUMEX AND GIVE 250CC NS BOLUS OVER 1 HR. VORB. WILL CONTINUE TO MONITOR.
[2016-10-23] MEDS ORDERED: NS 500 ML IV SCH (13:45)
--- NOTE | 2016-10-23 15:39 | NUR ---
SUMMARY Pt A/O X3, UP WITH SBA, FWW TO BR. SEE NOTES REGARDING BP, HR. LAST BP AFTER BOLUS 102/61. Pt ON 2L NC AFTER RT WALKED WITH Pt. Pt DENYING N/V, CP, SOA THROUGHOUT SHIFT. PRN PERCOCET GIVEN ONCE FOR PAIN RATED 4/10 IN MID-BACK. Pt TOLERATING ORAL INTAKE WELL, ADEQUATE I&O. IVL TO L FOREARM PATENT. FAMILY AT BEDSIDE OVER LUNCH HR. CALL LIGHT IN REACH, BED ALARM ON. WILL CONTINUE TO MONITOR.
--- NOTE | 2016-10-23 18:29 | PNPDOC ---
Subjective Date DATE: 10/23/16 TIME: 18:09 Subjective Mr. López reports that his breathing fine today and that he slept well. He denied cough or sputum production and has had no chest pain. He denied fevers or chills and reports that his appetite was good. He's having some mild back pain in his mid upper back which is atypical of his chronic low back pain. He typically uses oxygen at night only and does not have portable oxygen although does have a back obtained in case his concentrator fails. Late morning patient was noted to be hypotensive with blood pressure as low as 79/56 at which time he denied lightheadedness or dizziness. Objective Vital Signs Vital signs Vital Signs Date Time Temp Pulse Resp B/P Pulse Ox O2 Delivery O2 Flow Rate FiO2 10/23/16 17:15 85 10/23/16 15:37 18 10/23/16 15:34 95.8 119/68 96 Nasal Cannula 2.00 I/O 2115/2675 Weight +1.2 kg from admission if accurate EXAM General-NAD, alert, pleasant HEENT-conjunctiva clear, sclera anicteric, oropharynx clear except minor ulceration at the lateral margin of the tongue on both the right and the left side which patient attributes to biting his tongue Lungs-respirations nonlabored with good airflow, breath sounds clear except inspiratory crackles at the left base Cardiac-irregular cardiac rhythm, S1-S2 Abd-soft, nontender, bowel sounds present Ext-trace edema bilateral lower extremities Neuro-sensation intact 4 extremities, able to ambulate from bed into hold just outside of her room with respiratory therapy Skin-hyperpigmented areas dorsal hands and forearms, superficial ulcerations/ abrasions along the shins as before Psych-calm, cooperative - Height (Feet): 5 Height (Inches): 10.00 Weight (Kilograms): 68.500 Laboratory Laboratory Laboratory Tests 10/22/16 04:43 10/23/16 04:40 Magnesium 1.7 Laboratory Tests 10/22/16 04:43 10/23/16 04:40 Segs 68, bands 17, lymphocytes 2, eosinophils 10, metamyelocytes 1, myelocytes 2 EKG Telemetry sinus rhythm with frequent PVCs Radiology Today's chest x-ray reviewed by myself demonstrates scarring in the left upper lobe, fluid in the minor fissure, and significant improvement in pulmonary edema. No focal infiltrate evident. 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 I anticipate discharge with 1-2 L O2 at rest while awake. Ambulatory oximetry today demonstrated marked desaturation with room air saturation dropping from 87% at rest to 65% with patient walking only 57 feet. He required 6 L supplemental oxygen to maintain oxygen saturation with ambulation. Heart rate increased to 154 the last few feet of exercise. I/O's did not demonstrate cumulative to fluid loss and weight is elevated compared to admission however chest x-ray shows clearing of pulmonary edema and edema in the lower extremities has virtually resolved. Suspect fluid measurements are incomplete but also that minor changes in fluid balance significantly impact the patient's functional status. Hypotension today required holding Bumex and replacing small-volume fluid with 250 mL bolus of saline. Blood pressure has subsequently stabilized. At present I anticipate resuming oral Bumex tomorrow. Again discussed palliative care with the patient and he is open to discussion after discharge. He's quite focused on discharging home as soon as possible as family members will be visiting from out of town this weekend. We further discussed CODE STATUS and he does not wish to be intubated under any circumstance but would want efforts to restart his heart including CPR and defibrillation in the event of a cardiac arrest. DO NOT INTUBATE order has been written. Leukocytosis persists with significant left shift. Suspect generalized bone marrow stimulation due to epo/Nplate accounts for the leukocytosis. No clinical symptoms of pneumonia and no evidence of infiltrate following diuresis. Antibiotics discontinued other than chronic suppressive minocycline. 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 He'll take current mask home at discharge. Magnesium improved, continue Mag-Ox at 800 mg twice a day Resume Tylenol as needed for back pain; low-dose oxycodone added while hospitalized for increased pain due to hospital bed/relative immobility. Encouraged to be out of bed as much as possible. With episode of hypotension today do not believe patient can stably discharge at this time. We will reassess in a.m. Plan/Intensity of Service Laboratory data reviewed, chest x-ray reviewed by myself, supplemental history provided by nursing, CODE STATUS discussed-DO NOT RESUSCITATE ordered. Code Status Full Code Hospital Course Summary Disclaimer The hospital course summary below is not to be considered part of the above Progress Note. Hospital Course Summary 10/20-10/21/16 Mr. López has had 2 recent admissions for dyspnea due to congestive heart failure. The bulk of data currently supports heart failure is the primary diagnosis both radiographically and by dramatically elevated BNP. Leukocytosis is atypical but the patient does not feel acutely ill nor does he appear toxic. Lactic acid was not elevated nor was procalcitonin which would favor a noninfectious etiology. Leukocytosis may be result of recent marrow stimulating agents although it's unclear exactly what the patient received but platelet count is significantly higher now at 81 then in early September when he presented with platelet count of 30 K and repeat value of 23 K. At discharge in early September there was discussion about whether 1 mg of Bumex daily would be adequate to control heart failure or whether higher dose would be needed and it appears that higher dose will be necessary. At present she'll be converted from furosemide to IV Bumex 1 mg twice a day with close monitoring of urine output and weight. In the morning I'll clarify with [facility] what stimulating agents were administered and whether this may impact leukocytosis. Chest x-ray will be followed as pulmonary edema clears to get better view of the right lower lobe. In the intervening time antibiotics will be continued. Other home medications are being continued. Ventricular ectopy has improved from earlier this month when the patient was bigeminal and having occasional PVCs with different morphologies. 10/22/16 Clinically improved with decreased oxygen demand but still requiring O2. May require continuous oxygen at discharge. Continue diuresis-very small-volume changes appear to have significant impact on patient's respiratory status, echo again reviewed-no significant valvular disease appears to be playing a role in her symptoms but LVH present and diastolic dysfunction in conjunction with borderline low ejection fraction present. BUN climbing with diuresis; patient unfortunately is dealing with triad of pulmonary, cardiac, and renal disease with limited ability to compensate for minor fluctuations. Leukocytosis persists with significant left shift. He received injections of Neupogen and Nplate to stimulate hemoglobin and platelets. Neither should significantly impact white cells nor is leukocytosis listed as a side effect of either although differential being reported does not correspond to patient's symptoms or presentation. Suspect generalized bone marrow stimulation accounts for the leukocytosis. Will begin narrowing antibiotics. Discontinue vancomycin as patient is on chronic suppressive minocycline for staph. Recheck chest x-ray in a.m. with PA/ lateral to better define presence of infiltrate after diuresis. Can potentially discharged with Levaquin for short course. Anticipate nebulizer at discharge as patient is found MDI ineffective and he may be incapable of effective use of MDI. Convert from Solu-Medrol to oral prednisone at 40 mg daily today for COPD exacerbation in conjunction with CHF/possible pneumonia. Patient's daughter has raised the question of hospice which patient is not interested in; palliative care discussed with patient as an alternative option. We'll discuss further tomorrow or when family present. Magnesium being replaced IV today with increased oral magnesium supplement thereafter. Resume Tylenol as needed for back pain; low-dose oxycodone added while hospitalized for increased pain due to hospital bed/relative immobility. Encouraged to be out of bed as much as possible. Stable to transfer out of ICU. 10/23/16 Clinically improved with decreased oxygen demand-intermittently on room air but oxygen saturation frequently drops into the upper 80s at rest. I anticipate discharge with 1-2 L O2 at rest while awake. Ambulatory oximetry today demonstrated marked desaturation with room air saturation dropping from 87% at rest to 65% with patient walking only 57 feet. He required 6 L supplemental oxygen to maintain oxygen saturation with ambulation. Heart rate increased to 154 the last few feet of exercise. I/O's did not demonstrate cumulative to fluid loss and weight is elevated compared to admission however chest x-ray shows clearing of pulmonary edema and edema in the lower extremities has virtually resolved. Suspect fluid measurements are incomplete but also that minor changes in fluid balance significantly impact the patient's functional status. Hypotension today required holding Bumex and replacing small-volume fluid with 250 mL bolus of saline. Blood pressure has subsequently stabilized. At present I anticipate resuming oral Bumex tomorrow. Again discussed palliative care with the patient and he is open to discussion after discharge. He's quite focused on discharging home as soon as possible as family members will be visiting from out of town this weekend. We further discussed CODE STATUS and he does not wish to be intubated under any circumstance but would want efforts to restart his heart including CPR and defibrillation in the event of a cardiac arrest. DO NOT INTUBATE order has been written. Leukocytosis persists with significant left shift. Suspect generalized bone marrow stimulation due to epo/Nplate accounts for the leukocytosis. No clinical symptoms of pneumonia and no evidence of infiltrate following diuresis. Antibiotics discontinued other than chronic suppressive minocycline. 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 He'll take current mask home at discharge. Magnesium improved, continue Mag-Ox at 800 mg twice a day Resume Tylenol as needed for back pain; low-dose oxycodone added while hospitalized for increased pain due to hospital bed/relative immobility. Encouraged to be out of bed as much as possible. With episode of hypotension today do not believe patient can stably discharge at this time. We will reassess in dary.HEATHER Alcaraz MD October 23, 2016 18:16
[2016-10-23] MEDS ORDERED: OXYCODONE/APAP 5mg/325mg TABLET PO PRN (21:15)
[2016-10-23] MEDS: PRAVASTATIN 20 MG TABLET PO SCH (21:16)
[2016-10-23] MEDS: TAMSULOSIN 0.4 MG CAPSULE PO SCH (21:16)
[2016-10-23] MEDS: ROPINIROLE 1 MG TABLET PO SCH (21:17)
[2016-10-24] VITALS (7 sets, daily range): BP systolic 106–118; BP diastolic 65–67; PULSE 85–96; RESP 14–16; TEMP 95.7–97.5; O2SAT 92–97
[2016-10-24] MEDS: ALBUTEROL/IPRATROPIUM INHAL. 2.5mg-0.5mg/3ml Neb. AEROSOL SCH ×4 (01:26→11:05)
[2016-10-24 06:10] LABS: HCT - HEMATOCRIT 33.9 % (41-53); HGB - HEMOGLOBIN 9.8 GM/DL (13.5-17.5); MEAN CORPUSCULAR HGB 27.5 UUG (26-34); MEAN CORPUSCULAR HGB CONC(MCHC 28.9 GM/DL (31-37); MEAN CORPUSCULAR VOLUME 95.2 UM3 (80-100); RED BLOOD COUNT 3.56 M/MM3 (4.50-5.90); WBC - WHITE BLOOD COUNT 16.2 T/MM3 (4.5-11.0)
--- NOTE | 2016-10-24 06:20 | NUR ---
VSS. PT A&O X3, REPORTED PAIN 4/10, PRN PERCOCET GIVEN ORDERED. IVL TO THE LT FOREARM. NO SIGNIFICANT ISSUES FOUND THIS SHIFT.
[2016-10-24 06:26] LABS: ANION GAP 13 MEQ/L (5-15); BUN/CREATININE RATIO 29 RATIO (6-26); CALCIUM 8.8 MG/DL (8.4-10.2); CHLORIDE 110 MEQ/L (98-107); CO2 - CARBON DIOXIDE 21 MEQ/L (22-30); CREATININE 1.9 MG/DL (0.8-1.5); GLOMERULAR FILTRATION RATE 35; GLUCOSE 112 MG/DL (75-110); MAGNESIUM 1.8 MG/DL (1.6-2.3); POTASSIUM 4.4 MEQ/L (3.6-5); SODIUM 144 MEQ/L (134-144)
[2016-10-24 06:30] LABS: PROBNP 34500 PG/ML (0-175)
[2016-10-24 06:49] LABS: BAND NEUTROPHILS # 2.8 T/MM3; LYMPHOCYTES # (MANUAL) 1.3 T/MM3 (1-4.8); METAMYELOCYTES # 0.5 T/MM3; MONOCYTES # (MANUAL) 2.6 T/MM3 (0-0.8); MYELOCYTES # 0.5 T/MM3; NEUTROPHILS #(MANUAL)-ABSOLUTE 8.6 T/MM3 (1.8-7.7); NUCLEATED RED BLOOD CELLS 1; TOTAL CELLS COUNTED 100 %
[2016-10-24 06:50] LABS: ANISOCYTOSIS 2+; POIKILOCYTOSIS 1+
[2016-10-24] MEDS: MINOCYCLINE 100 MG CAPSULE PO SCH (06:50)
[2016-10-24 06:51] LABS: OVALOCYTES 1+
--- NOTE | 2016-10-24 07:34 | NUR ---
alert and oriented patient up on the recliner ready for breakfast voices no concern at this time. will continue to monitor.
[2016-10-24] MEDS: PredniSONE 20 MG TABLET PO SCH (08:12)
[2016-10-24] MEDS: MAGNESIUM OXIDE 400 MG TABLET PO SCH (08:13)
[2016-10-24] MEDS: MEXILETINE 150 MG CAPSULE PO SCH (08:13)
[2016-10-24] MEDS: PREGABALIN 100 MG CAPSULE PO SCH (08:13)
[2016-10-24] MEDS: FOLBIC TABLET PO SCH (08:13)
[2016-10-24] MEDS: ASPIRIN 81 MG CHEWABLE TABLET PO SCH (08:14)
[2016-10-24] MEDS: BUMETANIDE 1 MG TABLET PO SCH (08:14)
--- NOTE | 2016-10-24 11:17 | DSPDOC ---
PAULINE MAGALLON Alise ENGINE OILER 10/24/16 1111: General Date Date DATE: 10/24/16 TIME: 10:48 Attending Physician Giuliana Garcia MD Admitting Physician Giuliana Garcia MD Consulting Physician Admitting Diagnosis pneumonia Discharge Diagnosis Acute/chronic hypoxic respiratory failure Acute on chronic diastolic CHF Possible right lower lobe pneumonia Leukocytosis Hypomagnesemia, improved Hypotension, improved Hypernatremia, resolved Laboratory Laboratory Tests Test 10/23/16 04:40 10/24/16 05:32 White Blood Count 17.4T/MM3 (4.5-11.0) 16.2T/MM3 (4.5-11.0) Red Blood Count 3.41M/MM3 (4.50-5.90) 3.56M/MM3 (4.50-5.90) Hemoglobin 9.4GM/DL (13.5-17.5) 9.8GM/DL (13.5-17.5) Hematocrit 32.1% (41-53) 33.9% (41-53) Mean Corpuscular Volume 94.1UM3 (80-100) 95.2UM3 (80-100) Mean Corpuscular Hemoglobin 27.6UUG (26-34) 27.5UUG (26-34) Mean Corpuscular Hemoglobin Concent 29.3GM/DL (31-37) 28.9GM/DL (31-37) RDW Standard Deviation 79.0FL (36.9-50.2) 79.9FL (36.9-50.2) Platelet Count 51T/MM3 (130-400) 40T/MM3 (130-400) Mean Platelet Volume UM3 (9.4-12.4) UM3 (9.4-12.4) Immature Granulocyte % (Auto) % (0.0-0.5) Neutrophils (%) (Auto) % (33-66) Lymphocytes (%) (Auto) % (23-45) Monocytes (%) (Auto) % (0-9.0) Eosinophils (%) (Auto) % (0-4) Basophils (%) (Auto) % (0-2) Absolute Immature Granulocyte (auto T/MM3 (0.00-0.03) Absolute Neutrophils (auto) T/MM3 (1.8-7.7) Absolute Lymphocytes (auto) T/MM3 (1-4.8) Absolute Monocytes (auto) T/MM3 (0-0.8) Absolute Eosinophils (auto) T/MM3 (0-0.5) Absolute Basophils (auto) T/MM3 (0-0.2) Neutrophils % (Manual) 68.0% (33-66) 53.0% (33-66) Band Neutrophils % 17.0% (0-6) 17.0% (0-6) Lymphocytes % (Manual) 2.0% (23-45) 8.0% (23-45) Monocytes % (Manual) 10.0% (0-9.0) 16.0% (0-9.0) Metamyelocytes % 1.0% (0-0) 3.0% (0-0) Myelocytes % 2.0% (0-0) 3.0% (0-0) Absolute Neutrophils (Manual) 11.8T/MM3 (1.8-7.7) 8.6T/MM3 (1.8-7.7) Band Neutrophils # 3.0T/MM3 2.8T/MM3 Lymphocytes # (Manual) 0.3T/MM3 (1-4.8) 1.3T/MM3 (1-4.8) Monocytes # (Manual) 1.7T/MM3 (0-0.8) 2.6T/MM3 (0-0.8) Metamyelocytes # 0.2T/MM3 0.5T/MM3 Myelocytes # 0.3T/MM3 0.5T/MM3 Poikilocytosis 1+ 1+ Anisocytosis 2+ 2+ Ovalocytes 1+ 1+ Red Cell Morphology Comment Abnormal Abnormal Turbidity < 20 (0-20) < 20 (0-20) Sodium Level 141MEQ/L (134-144) 144MEQ/L (134-144) Potassium Level 4.3MEQ/L (3.6-5) 4.4MEQ/L (3.6-5) Chloride Level 110MEQ/L (98-107) 110MEQ/L (98-107) Carbon Dioxide Level 18MEQ/L (22-30) 21MEQ/L (22-30) Anion Gap 13MEQ/L (5-15) 13MEQ/L (5-15) Blood Urea Nitrogen 55.0MG/DL (9-20) 55.0MG/DL (9-20) Creatinine 1.9MG/DL (0.8-1.5) 1.9MG/DL (0.8-1.5) Glomerular Filtration Rate Calc 35 35 BUN/Creatinine Ratio 29RATIO (6-26) 29RATIO (6-26) Glucose Level 147MG/DL (75-110) 112MG/DL (75-110) Calculated Osmolality 289MOSM/KG (261-280) 293MOSM/KG (261-280) Calcium Level 8.7MG/DL (8.4-10.2) 8.8MG/DL (8.4-10.2) Phosphorus Level 6.3MG/DL (2.5-4.5) Magnesium Level 1.7MG/DL (1.6-2.3) 1.8MG/DL (1.6-2.3) Icterus Index < 2 (0-7) < 2 (0-7) Albumin 3.0G/DL (3.5-5.0) Chemistry Specimen Hemolysis < 15 (0-25) < 15 (0-25) Nucleated Red Blood Cells 1 OC-Tsx-J-Type Natriuretic Peptide 95772US/ML (0-175) Radiology DATE OF EXAM: 10/20/16 TYPE OF EXAM: CHEST, PA & LATERAL Impression: Moderate pulmonary edema. Superimposed pneumonia or aspiration is possible in the right lower lobe. DATE OF EXAM: 10/23/16 TYPE OF EXAM: CHEST, PA & LATERAL Impression: Decreasing pulmonary edema. History of Present Illness This is a 76 year old with h/o COPD, pulm HTN, CHF, AFib and non-small cell ca who presents with 3-4 day h/o worsening dyspnea, cough productive of yellow sputum and increased O2 requirement - normally on 3 L/min chronically but needing up to 6 L/min today - so decided to come in to the ER to be seen. Patient recently hospitalized for CHF exacerbation earlier this month. Dyspnea persisted to some degree after hospitalization and patient was seen by his PCP and by his sizer hand over past 2 weeks. Patient denies chest pain , denies headache, denies f/c/s and denies change in bowel or bladder function. Patient received 1 L NS in ER, CXR showed chronic diffuse infiltrates and left lung mass which purportedly is stable however concern that infiltrates may be more prominent and with a WBC of 18.1 w/ a left shift and bands of 17% concern for acute pneumonia and patient started on triple abx therapy that of Cefepime, Vancomycin and Levaquin. Patient also going to receive 125mg IV SoluMedrol and neb treatments in ED. Patient to be admitted to the Hospitalist service for further evaluation and management. Patient is currently feeling "much better" and down to 4 L/min on NC in the CCU at the time that I saw him. Hospital Course Mr. López was admitted to the CCU under the hospitalist service on 10/20/16 for possible pneumonia but more likely acute CHF exacerbation. He was started on broad spectrum antibiotics to cover for HCAP (vancomycin, cefepime, levofloxacin ). He was also started on systemic steroids for likely COPD exacerbation. He had 2 recent admissions for dyspnea secondary to CHF. Leukocytosis noted on admission, but he did not appear ill or toxic; further, lactic acid and procalcitonin were not elevated. It's possible his leukocytosis was secondary to recent marrow stimulating agents; platelet count was significantly higher on admission at 81 compared to early September when platelet count was 23-30 K. He was started on IV Bumex 1 mg BID and urine and weight trends were closely monitored. By 10/22/16 he was improved, requiring less oxygen. Diuresis was continued, and it appears that small-volume changes have a significant impact on his respiratory status. Recent echo (09/18/16) was reviewed, showing LVH, diastolic dysfunction, low EF 40%. Unfortunately, with diuresis we did see an increasing in BUN but felt with his triad of pulmonary, cardiac, and renal disease he had little compensatory mechanisms. Magnesium was slightly depleted with diuresis and was replaced IV. His abx were narrowed to levofloxacin. Chronic suppressive minocycline was continued. Further, steroids were tapered. Repeat CXR on 10/23/16 showed improvement in pulmonary edema and he was transferred to the medical unit. He continued to require oxygen - ambulatory readings showed marked desaturation with room air sats dropping from 87% at rest to 65% after walking 57 feet. He required 6L of oxygen with ambulation to maintain adequate saturations. He developed hypotension on 10/23/16 requiring small-volume fluid bolus of 250 mL, which resulted in stable VS that extended into the following morning. Bumex was held but was restarted the following morning. Hospice and palliative care conversations were broached with the patient and his daughter, initially met with some resistance from Mr. López but by 10/23/16 he was amenable to palliative care discussion and changing code status to limited code (no intubation). He was able to be safely discharged home on 10/24/16. On exam, he was A&O x3 and pleasant; heart was irregular; crackles were noted b/l lung bases; feet were without edema. Antibiotics will be discontinued at discharge. He will need surveillance on chemistry panel and renal function following discharge. F/U with PCP Dr. Ferrari in 1 week. He has also been enrolled in the transitional program, [facility]. We will discuss Advanced Care Planning and Palliative Care after discharge. Rx and discharge instructions written by Dr. Garcia. Will discharge with Bumex 1 mg daily; Prednisone x5 days; oxygen 2L at rest, 6L with activity, and 3L at night; continue with routine Spiriva + Albuterol nebulized treatments scheduled QID ( DC home with mask/tube for improved home experience). Will likely be able to discontinue scheduled Albuterol treatments in near future. This is a general summation of Mr. López's hospital course. For more details, please refer to the complete medical record. Time spent in discharge activities : greater than 35 minutes. Problems: (1) Diastolic CHF, chronic Status: Chronic (2) Pulmonary edema Status: Resolved Code Status Limited Code Home Meds Active Scripts Prednisone (Prednisone) 20 Mg Tablet, 20 MG PO WB for 5 Days, #5 TAB Prov:GIULIANA GARCIA MD 10/24/16 Magnesium Oxide (Magnesium Oxide) 400 Mg Tablet, 800 MG PO BID, #120 Prov:GIULIANA GARCIA MD 10/24/16 Bumetanide (Bumetanide) 1 Mg Tablet, 1 MG PO BIDBL, #60 Prov:GIULIANA GARCIA MD 10/24/16 Albuterol Sulfate (Albuterol Sulfate) 2.5 Mg/3 Ml Vial.neb, 2.5 MG AEROSOL QID Y for SHORTNESS OF AIR/WHEEZING, #120 and q2hr as needed for dyspnea Prov:GIULIANA GARCIA MD 10/24/16 Sodium Chloride (Deep Sea) 450 Jennings/45 Ml Jennings, 2 SPRAY EA NOSTRIL QID Y for NASAL CONGESTION, #1 BOTTLE Prov:JOHN PITTS MD 09/21/16 Guaifenesin/Dextromethorphan (Mucinex Dm ER 600-30 mg Tablet) 1 Each Tab.er.12h , 1 TAB PO Q12HR Y for COUGH/CONGESTION, #20 TAB Prov:JOHN PITTS MD 09/21/16 Reported Medications Hydroxyzine HCl (Hydroxyzine HCl) 25 Mg Tablet, 25 MG PO TID Y for ANXIETY 10/20/16 Alprazolam (Alprazolam) 0.5 Mg Tablet, 0.25 MG PO DAILY Y for ANXIETY 10/20/16 Mexiletine HCl (Mexiletine HCl) 150 Mg Capsule, 150 MG PO TID 10/20/16 Metoprolol Tartrate (Metoprolol Tartrate) 25 Mg Tablet, 25 MG PO BIDWM 10/20/16 Fluticasone/Vilanterol (Breo Ellipta 100-25 Mcg INH) Unknown Strength Blst.w.dev , ORAL INH DAILY 10/06/16 Doxylamine Succinate (Unisom Sleep Aid) 25 Mg Tablet, 1 TAB PO HS Y for PRN ORDERS 09/18/16 Cyanocobalamin/Folic Acid (Vitamin E61-Yhrlx Acid Tablet) 1 Each Tablet, 1 TAB PO DAILY 09/18/16 Tiotropium Sedan (Spiriva) 1 Cap Inhaler, 1 CAP ORAL INH DAILY 09/18/16 Alendronate Sodium (Alendronate Sodium) 70 Mg Tablet, 70 MG PO Q7D 09/18/16 Minocycline HCl (Minocycline HCl) 100 Mg Capsule, 100 MG PO BID 05/26/16 Pravastatin Sodium (Pravastatin Sodium) 20 Mg Tablet, 20 MG PO HS 05/26/16 Tamsulosin HCl (Tamsulosin HCl) 0.4 Mg Cap.er.24h, 0.4 MG PO HS 05/09/16 Pregabalin (Lyrica) 200 Mg Capsule, 200 MG PO TID 08/19/15 Ropinirole HCl (Ropinirole HCl) 1 Mg Tablet, 1.5 MG PO HS 08/19/15 Aspirin (Aspirin) 81 Mg Tablet, 81 MG PO DAILY 09/11/10 Face to Face Encounter I met with patient on the day of dismissal and discussed follow up appointments , medications, and safety plan. Discharge Disposition DC home, stable Copies To 1: DAYDAY FERRARI MD Copies To 2: YONI YEBOAH MD Documentation Requirements Documenting Diagnosis Anemia, CHF, Chronic Kidney Disease CHF Type and Acuity Type of CHF: Systolic and Diastolic Acuity CHF: Acute on Chronic Chronic Kidney Disease Stage of CKD: Stage 3 GFR 30-59 Anemia Anemia Acuity: Chronic GIULIANA GARCIA MD 10/24/16 1218: Hospital Course I have independently evaluated and examined this patient. I reviewed the chart, the patient's history, and the ENGINE OILER's documented findings as above. We discussed and formulated the assessment and plan as above with additions as below: Mr. López reports feeling well today and denies lightheadedness, dyspnea, cough , or sputum production. Blood pressure was stable overnight without recurrent hypotension. He's been maintained on 2 L supplemental oxygen while awake with oxygen saturations ranging 93-97%. As noted yesterday he had profound desaturation with ambulation on room air: room air saturation dropping from 87% at rest to 65% with patient walking only 57 feet. He required 6 L supplemental oxygen to maintain oxygen saturation with ambulation. Heart rate increased to 154 the last few feet of exercise. Consequently he will discharge with supplemental oxygen as noted above. The patient is alert and cooperative. Respirations are nonlabored with good airflow although he has some very faint wheezes noted in the posterior lung horner today and crackles again at the left base. Left ventricular ectopy is noted on exam today that in the past and there is no peripheral edema. Levaquin was discontinued yesterday and will not be continued at discharge given lack of evidence for pneumonia-diagnosed for pneumonia should read "pneumonia-excluded". Stable for discharge with instructions to follow-up with Dr. Ferrari in 1 week, Dr. Yeboah as previously scheduled which should be in the next 1-2 weeks, and Dr. Yadav for continuation of bone marrow stimulants. Problems: Home Meds Active Scripts Prednisone (Prednisone) 20 Mg Tablet, 20 MG PO WB for 5 Days, #5 TAB Prov:GIULIANA GARCIA MD 10/24/16 Magnesium Oxide (Magnesium Oxide) 400 Mg Tablet, 800 MG PO BID, #120 Prov:GIULIANA GARCIA MD 10/24/16 Bumetanide (Bumetanide) 1 Mg Tablet, 1 MG PO BIDBL, #60 Prov:GIULIANA GARCIA MD 10/24/16 Albuterol Sulfate (Albuterol Sulfate) 2.5 Mg/3 Ml Vial.neb, 2.5 MG AEROSOL QID Y for SHORTNESS OF AIR/WHEEZING, #120 and q2hr as needed for dyspnea Prov:GIULIANA GARCIA MD 10/24/16 Sodium Chloride (Deep Sea) 450 Jennings/45 Ml Jennings, 2 SPRAY EA NOSTRIL QID Y for NASAL CONGESTION, #1 BOTTLE Prov:JOHN PITTS MD 09/21/16 Guaifenesin/Dextromethorphan (Mucinex Dm ER 600-30 mg Tablet) 1 Each Tab.er.12h , 1 TAB PO Q12HR Y for COUGH/CONGESTION, #20 TAB Prov:JOHN PITTS MD 09/21/16 Reported Medications Hydroxyzine HCl (Hydroxyzine HCl) 25 Mg Tablet, 25 MG PO TID Y for ANXIETY 10/20/16 Alprazolam (Alprazolam) 0.5 Mg Tablet, 0.25 MG PO DAILY Y for ANXIETY 10/20/16 Mexiletine HCl (Mexiletine HCl) 150 Mg Capsule, 150 MG PO TID 10/20/16 Metoprolol Tartrate (Metoprolol Tartrate) 25 Mg Tablet, 25 MG PO BIDWM 10/20/16 Fluticasone/Vilanterol (Breo Ellipta 100-25 Mcg INH) Unknown Strength Blst.w.dev , ORAL INH DAILY 10/06/16 Doxylamine Succinate (Unisom Sleep Aid) 25 Mg Tablet, 1 TAB PO HS Y for PRN ORDERS 09/18/16 Cyanocobalamin/Folic Acid (Vitamin F66-Fvqjd Acid Tablet) 1 Each Tablet, 1 TAB PO DAILY 09/18/16 Tiotropium Sedan (Spiriva) 1 Cap Inhaler, 1 CAP ORAL INH DAILY 09/18/16 Alendronate Sodium (Alendronate Sodium) 70 Mg Tablet, 70 MG PO Q7D 09/18/16 Minocycline HCl (Minocycline HCl) 100 Mg Capsule, 100 MG PO BID 05/26/16 Pravastatin Sodium (Pravastatin Sodium) 20 Mg Tablet, 20 MG PO HS 05/26/16 Tamsulosin HCl (Tamsulosin HCl) 0.4 Mg Cap.er.24h, 0.4 MG PO HS 05/09/16 Pregabalin (Lyrica) 200 Mg Capsule, 200 MG PO TID 08/19/15 Ropinirole HCl (Ropinirole HCl) 1 Mg Tablet, 1.5 MG PO HS 08/19/15 Aspirin (Aspirin) 81 Mg Tablet, 81 MG PO DAILY 09/11/10 Copies To 1: DAYDAY FERRARI MD Copies To 2: YONI YEBOAH MD, KAREN D APRN October 24, 2016 11:11 GIULIANA GARCIA MD October 24, 2016 12:18
[2016-10-24] MEDS ORDERED: MAGN400T6 PO (11:25)
[2016-10-24] MEDS ORDERED: ALBU2.5V7 AEROSOL (11:25)
[2016-10-24] MEDS ORDERED: PRED20TA PO (11:25)
[2016-10-24] MEDS ORDERED: BUME1TAB17 PO (11:25)
--- NOTE | 2016-10-24 12:11 | NUR ---
BEVERLEY THIS WORKER MET WITH PT ON THIS DATE. PT IS EAGER TO RETURN HOME TODAY. PT HAS OXYGEN IN ROOM FOR HOME USE FROM [facility]. PT DENIED ANY ADDITIONAL NEEDS FOR DISCHARGE.
[2016-10-24] MEDS: OXYCODONE/APAP 5mg/325mg TABLET PO PRN (13:33)
--- NOTE | 2016-10-24 13:39 | NUR ---
discontinued iv and patient educated about discharge orders all necessary paper work signed and patient given copies of educational materials et patient discharged to home at 1339 and escorted by staff
--- NOTE | 2016-10-24 13:52 | NUR ---
OXYGEN ORDERS FAXED TO [facility]. THEY ARE AWARE OF DISCHARGE AND WILL PLAN TO DELIVER ADDITIONAL OXYGEN ON THIS DATE.
--- NOTE | 2016-10-24 14:43 | NUR ---
Prescriptions Prescriptions called to [facility]
--- NOTE | 2016-10-25 10:54 | PDONTRACK ---
[facility] Program Date of Discharge October 24, 2016 at 13:40 Scheduled Alendronate Sodium (Alendronate Sodium), 70 MG PO Q7D, (Reported) Aspirin (Aspirin), 81 MG PO DAILY, (Reported) Bumetanide (Bumetanide), 1 MG PO BIDBL Cyanocobalamin/Folic Acid (Vitamin M20-Gbahp Acid Tablet), 1 TAB PO DAILY, ( Reported) Fluticasone/Vilanterol (Breo Ellipta 100-25 Mcg INH), Unknown Dose ORAL INH DAILY, (Reported) Magnesium Oxide (Magnesium Oxide), 800 MG PO BID Metoprolol Tartrate (Metoprolol Tartrate), 25 MG PO BIDWM, (Reported) Mexiletine HCl (Mexiletine HCl), 150 MG PO TID, (Reported) Minocycline HCl (Minocycline HCl), 100 MG PO BID, (Reported) Pravastatin Sodium (Pravastatin Sodium), 20 MG PO HS, (Reported) Prednisone (Prednisone), 20 MG PO WB Pregabalin (Lyrica), 200 MG PO TID, (Reported) Ropinirole HCl (Ropinirole HCl), 1.5 MG PO HS, (Reported) Tamsulosin HCl (Tamsulosin HCl), 0.4 MG PO HS, (Reported) Tiotropium [place] (Spiriva), 1 CAP ORAL INH DAILY, (Reported) Scheduled PRN Albuterol Sulfate (Albuterol Sulfate), 2.5 MG AEROSOL QID PRN for SHORTNESS OF AIR/WHEEZING Alprazolam (Alprazolam), 0.25 MG PO DAILY PRN for ANXIETY, (Reported) Doxylamine Succinate (Unisom Sleep Aid), 1 TAB PO HS PRN for PRN ORDERS, ( Reported) Guaifenesin/Dextromethorphan (Mucinex Dm ER 600-30 mg Tablet), 1 TAB PO Q12HR PRN for COUGH/CONGESTION Hydroxyzine HCl (Hydroxyzine HCl), 25 MG PO TID PRN for ANXIETY, (Reported) Sodium Chloride (Deep Sea), 2 SPRAY EA NOSTRIL QID PRN for NASAL CONGESTION Date: October 25, 2016 [facility] Program: 24 Hour Follow-Up Discharge Summary Received: Yes Care Plan Received: Yes Follow up: Follow Up Appt. Scheduled (will call Dr. Ferrari's office on Thursday (Thursday is )) Education: Diagnosis Ed. Review Referrals: Case Management Comments I called [facility] on 10/25/16. He stated that his first night at home went well. He didn't have any trouble filling his prescriptions. He denies any shortness of breath. His reviewed the discharge instructions in detail and he denies any questions. He will call Dr. Ferrari's office next week to make a f/u appt. [facility]. Discussed w/pt and caregiver: Yes Recommendations for follow-up 1. Finish prednisone Rx 2. Continue home oxygen 3. Continue ROTP - home visit on 10/31/16 at 1030 Problems: (1) Diastolic CHF, chronic Status: Chronic (2) Pulmonary edema Status: Resolved PAULINE MAGALLON EYELET OPERATOR October 25, 2016 10:53
== END 2016-10-24 13:40 | disposition home health service (06) | DRG 871 ==
LOC: ED 18:40 → EDHOLD 20:51 → CCU 22:05 → MED 10-22 16:55
PROVIDERS: ADMIT Internal Medicine; ATTEND Internal Medicine
DX: A41.9 Sepsis, unspecified organism (principal); J18.9 Pneumonia, unspecified organism; J96.21 Acute and chronic respiratory failure with hypoxia; J44.1 Chronic obstructive pulmonary disease with (acute) exacerbation; I50.22 Chronic systolic (congestive) heart failure; D46.9 Myelodysplastic syndrome, unspecified; N18.3 Chronic kidney disease, stage 3 (moderate); I48.0 Paroxysmal atrial fibrillation; D63.8 Anemia in other chronic diseases classified elsewhere; G62.9 Polyneuropathy, unspecified; I27.2 Other secondary pulmonary hypertension; E83.39 Other disorders of phosphorus metabolism; E83.42 Hypomagnesemia; G47.36 Sleep related hypoventilation in conditions classified elsewhere; M54.9 Dorsalgia, unspecified; E78.2 Mixed hyperlipidemia; N40.0 Benign prostatic hyperplasia without lower urinary tract symptoms; F32.9 Major depressive disorder, single episode, unspecified; E03.9 Hypothyroidism, unspecified; M19.91 Primary osteoarthritis, unspecified site; M48.00 Spinal stenosis, site unspecified; H90.5 Unspecified sensorineural hearing loss; I08.0 Rheumatic disorders of both mitral and aortic valves; Z79.82 Long term (current) use of aspirin; Z85.118 Personal history of other malignant neoplasm of bronchus and lung; Z98.890 Other specified postprocedural states
CPT/HCPCS: 36415; 80048; 80053; 80069; 82803; 83605; 83735; 83880; 84145; 84484; 85007; 85025; 85027; 93005; 94640; 94761